=== PATIENT | male | born 1940 | race Caucasian/White ===

== ENCOUNTER 2017-05-18 02:55 | Inpatient (IN) | payer MEDICARE ==
[2017-05-18] MEDS ORDERED: HYDROmorphone 0.5 MG/0.5 ML Syringe IVPUSH ONE ×2 (03:25→04:24)
[2017-05-18] MEDS ORDERED: Sodium Chloride 0.9% 1,000 ML IV SCH (03:30)
[2017-05-18] MEDS ORDERED: NS + KCl 20mEq/L 1,000 ML IV SCH (03:30)
[2017-05-18] MEDS ORDERED: Metoclopramide 10 MG/2 ML SDV IVPUSH ONE (03:32)
--- NOTE | 2017-05-18 03:38 | EDM.PDOC ---
ED HPI GENERAL MEDICAL PROBLEM - General Chief Complaint: Abdominal Pain Stated Complaint: ABD PAIN Time Seen by Provider: 05/18/17 03:20 Source of Information: Reports: Patient, Old Records, RN History Limitations: Reports: No Limitations - History of Present Illness INITIAL COMMENTS - FREE TEXT/NARRATIVE: 76 yo male presents with about 90 minutes of pain in his abdomen sufficient to keep him from falling back to sleep. Has had nausea without vomiting. No fever. Pain all across the mid abdomen. No change in bowels. Has a pHx of bowel obstruction and this feels like that. Ate chili for supper about 1800h. Onset: Gradual Onset Date: 05/18/17 Onset Time: 01:30 Duration: Minutes:, Getting Worse, Intermittent Location: Reports: Abdomen Quality: Reports: Ache Severity: Moderate Improves with: Reports: None Worsens with: Reports: None Context: Reports: Other (PHx of bowel obstruction) Associated Symptoms: Reports: Nausea/Vomiting (no vomiting). Denies: Cough, Fever/Chills Treatments BLACK OFF WORKER: Reports: Other (see below) (none) abd Pain Score (Numeric/FACES): 7 - Related Data Allergies Allergy/AdvReac Type Severity Reaction Status Date / Time erythromycin base Allergy Unknown Blisters Verified 06/06/15 04:17 [Erythromycin Base] Home Meds: Home Meds Aspirin [[place] Aspirin] 81 mg PO DAILY 02/17/14 [History] Past Medical History - Past Health History Medical/Surgical History: Denies Medical/Surgical History HEENT History: Reports: Hard of Hearing, Impaired Vision Gastrointestinal History: Reports: Bowel Obstruction, Colon Polyp Hematologic History: Reports: Blood Transfusion(s) Oncologic (Cancer) History: Reports: Colon - Infectious Disease History Infectious Disease History: Reports: Chicken Pox, Mumps, Shingles - Past Surgical History GI Surgical History: Reports: Colon, Colonoscopy, Lysis of Adhesions, Small Bowel, Other (See Below) Other GI Surgeries/Procedures: ruptured ulcer in small intestine Social & Family History - Tobacco Use Smoking Status *Q: Never Smoker Years of Tobacco use: 5 Packs/Tins Daily: 0.5 Used Tobacco, but Quit: Yes Month Tobacco Last Used: June Second Hand Smoke Exposure: No - Caffeine Use Caffeine Use: Reports: Coffee - Alcohol Use Days Per Week of Alcohol Use: 7 Number of Drinks Per Day: 2 Total Drinks Per Week: 14 - Recreational Drug Use Recreational Drug Use: No ED ROS GENERAL - Review of Systems Review Of Systems: See Below Constitutional: Reports: No Symptoms HEENT: Reports: No Symptoms Respiratory: Reports: No Symptoms Cardiovascular: Reports: No Symptoms Endocrine: Reports: No Symptoms GI/Abdominal: Reports: Abdominal Pain, Distension (slight), Nausea. Denies: Black Stool, Bloody Stool, Constipation, Diarrhea, Flatus, Hematemesis, Hematochezia, Melena, Vomiting : Reports: No Symptoms Musculoskeletal: Reports: No Symptoms Skin: Reports: No Symptoms Neurological: Reports: No Symptoms Psychiatric: Reports: No Symptoms Hematologic/Lymphatic: Reports: No Symptoms ED EXAM, GI/ABD - Physical Exam Exam: See Below Exam Limited By: No Limitations General Appearance: Alert, WD/WN, No Apparent Distress Eyes: Bilateral: Normal Appearance Ears: Normal External Exam, Normal Canal, Hearing Loss (mild) Nose: Normal Inspection, Normal Mucosa, No Blood Throat/Mouth: Normal Inspection, Normal Lips, Normal Oropharynx, Normal Voice, No Airway Compromise Head: Atraumatic, Normocephalic Neck: Normal Inspection, Supple, Non-Tender Respiratory/Chest: No Respiratory Distress, Lungs Clear, Normal Breath Sounds, No Accessory Muscle Use Cardiovascular: Regular Rate, Rhythm, No Edema GI/Abdominal Exam: Normal Bowel Sounds, Soft, Non-Tender, No Distention Back Exam: Normal Inspection. No: CVA Tenderness (R), CVA Tenderness (L) Extremities: Normal Inspection, Normal Range of Motion, Non-Tender, No Pedal Edema Neurological: Alert, Oriented, CN II-XII Intact, Normal Cognition, No Motor/ Sensory Deficits Psychiatric: Normal Affect, Normal Mood Skin Exam: Warm, Dry, Intact, Normal Color, No Rash Lymphatic: No Adenopathy Course - Vital Signs Text/Narrative:: Dr. Quan called @ [facility], will see in ER. Last Recorded V/S: Last Vital Signs Temp 36.2 C 05/18/17 04:33 Pulse 90 05/18/17 04:33 Resp 16 05/18/17 04:33 BP 152/85 H 05/18/17 04:33 Pulse Ox 93 L 05/18/17 04:33 - Orders/Labs/Meds Orders: Active Orders 24 hr Category Date Time Status Abdomen Pelvis w Cont [CT] Stat Exams 05/18/17 03:31 Taken Sodium Chloride 0.9% [Normal Saline] 1,000 ml Med 05/18/17 03:30 Active IV ASDIRECTED Medication Orders Sodium Chloride (Normal Saline) 1,000 mls @ 250 mls/hr IV ASDIRECTED NATHALIE Last Admin: 05/18/17 03:35 Dose: 250 mls/hr Labs: Laboratory Tests 05/18/17 05/18/17 Range/Units 03:36 03:36 WBC 9.2 (4.5-11.0) K/uL RBC 5.16 (4.30-5.90) M/uL Hgb 16.3 H D (12.0-15.0) g/dL Hct 48.1 (40.0-54.0) % MCV 93 (80-98) fL MCH 32 H (27-31) pg MCHC 34 (32-36) % Plt Count 291 (150-400) K/uL Sodium 141 (140-148) mmol/L Potassium 4.1 (3.6-5.2) mmol/L Chloride 102 (100-108) mmol/L Carbon Dioxide 27 (21-32) mmol/L Anion Gap 11.9 (5.0-14.0) mmol/L BUN 17 (7-18) mg/dL Creatinine 1.2 (0.8-1.3) mg/dL Est Cr Clr Drug Dosing 55.78 mL/min Estimated GFR (MDRD) 59 L (>60) Glucose 112 H (74-106) mg/dL Calcium 9.3 (8.5-10.1) mg/dL Meds: Medications Generic Name Dose Route Start Last Admin Trade Name Freq PRN Reason Stop Dose Admin Sodium Chloride 1,000 mls @ 250 mls/hr 05/18/17 03:30 05/18/17 03:35 Normal Saline IV 250 mls/hr ASDIRECTED NATHALIE Administration Discontinued Medications Generic Name Dose Route Start Last Admin Trade Name Freq PRN Reason Stop Dose Admin Hydromorphone HCl 0.5 mg 05/18/17 03:25 05/18/17 03:33 Dilaudid IVPUSH 05/18/17 03:26 0.5 mg ONETIME ONE Administration Hydromorphone HCl 0.5 mg 05/18/17 04:24 05/18/17 04:28 Dilaudid IVPUSH 05/18/17 04:25 0.5 mg ONETIME ONE Administration Potassium Chloride/Sodium Chloride 1,000 mls @ 250 mls/hr 05/18/17 03:30 Normal Saline With 20 Meq Kcl IV ASDIRECTED NATHALIE Sodium Chloride 81 mls @ 4 mls/sec 05/18/17 04:03 05/18/17 04:11 Normal Saline IV 05/18/17 04:04 4 mls/sec ASDIRECTED STA Administration Iopamidol 136 ml 05/18/17 04:03 05/18/17 04:11 Isovue-300 (61%) IV 05/18/17 04:04 150 ml . DIRECTED STA Administration Metoclopramide HCl 10 mg 05/18/17 03:32 05/18/17 03:36 Reglan IVPUSH 05/18/17 03:33 10 mg ONETIME ONE Administration - Radiology Interpretation Free Text/Narrative:: CT of abdomen and pelvis-small bowel obstruction CT Results Date: 05/18/17 CT Results Time: 04:45 Departure - Departure Time of Disposition: 05:05 Disposition: Admitted As Inpatient 66 Condition: Fair Clinical Impression: Small bowel obstruction - Discharge Information Referrals: Frederic Calderon NP [Primary Care Provider] - Forms: ED Department Discharge - My Orders Last 24 Hours: My Active Orders 05/18/17 03:30 Sodium Chloride 0.9% [Normal Saline] 1,000 ml IV ASDIRECTED 05/18/17 03:31 Abdomen Pelvis w Cont [CT] Stat - Assessment/Plan Last 24 Hours: My Active Orders 05/18/17 03:30 Sodium Chloride 0.9% [Normal Saline] 1,000 ml IV ASDIRECTED 05/18/17 03:31 Abdomen Pelvis w Cont [CT] Stat
[2017-05-18] MEDS ORDERED: Iopamidol 612 MG/ML 150 ML Bottle IV STA (04:03)
[2017-05-18] MEDS ORDERED: Lidocaine 2% Viscous Solution 15 ML Cup PO STA (04:58)
[2017-05-18] MEDS ORDERED: Ondansetron 4 MG/2 ML SDV IV PRN (05:39)
--- NOTE | 2017-05-18 05:57 | PCM.HP ---
H&P History of Present Illness - General Date of Service: 05/18/17 Admit Problem/Dx: Admission Diagnosis/Problem Admission Diagnosis/Problem Small bowel obstruction Source of Information: Patient, Provider History Limitations: Reports: No Limitations - History of Present Illness Initial Comments - Free Text/Narative: This 76 year old white male noted onset of crampy abdominal pain about 11:00 last night. These spasms of pain lasted seconds only, and then he felt fine for several minutes. He went to bed and woke up about 1:30 this morning with severe pain which caused him to come to the ER. It was still episodic. He noted some nausea with pain, but denied vomiting. He last passed gas several hours ago. Here he was found on CT of abdomen and pelvis to have a "likely high grade small bowel obstruction due to adhesions." An NG tube was placed and he now feels fine. He is admitted for bowel rest with an NG and IV fluid support. 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 Onset of Symptoms: Reports: Gradual Symptom Onset Date: 05/17/17 Symptom Onset Time: 23:00 Duration of Symptoms: Reports: Minutes: Location: Reports: Abdomen Quality: Reports: Other (Cramping) Severity: Severe Improves with: Reports: None Worsens with: Reports: None Associated Symptoms: Reports: Nausea/Vomiting (No vomiting, a little nausea with his crampy pain. ) abd Pain Score (Numeric/FACES): 2 - Related Data Allergies/Adverse Reactions: Allergies Allergy/AdvReac Type Severity Reaction Status Date / Time erythromycin base Allergy Unknown Blisters Verified 06/06/15 04:17 [Erythromycin Base] Home Medications: Home Meds Aspirin [[place] Aspirin] 81 mg PO DAILY 02/17/14 [History] Past Medical History - Past Health History Medical/Surgical History: Denies Medical/Surgical History HEENT History: Reports: Hard of Hearing, Impaired Vision Gastrointestinal History: Reports: Bowel Obstruction, Colon Polyp Hematologic History: Reports: Blood Transfusion(s) Oncologic (Cancer) History: Reports: Colon - Infectious Disease History Infectious Disease History: Reports: Chicken Pox, Mumps, Shingles - Past Surgical History GI Surgical History: Reports: Colon, Colonoscopy, Lysis of Adhesions, Small Bowel, Other (See Below) Other GI Surgeries/Procedures: ruptured ulcer in small intestine Social & Family History - Tobacco Use Smoking Status *Q: Never Smoker Years of Tobacco use: 5 Packs/Tins Daily: 0.5 Used Tobacco, but Quit: Yes Month Tobacco Last Used: June Second Hand Smoke Exposure: No - Caffeine Use Caffeine Use: Reports: Coffee - Alcohol Use Days Per Week of Alcohol Use: 7 Number of Drinks Per Day: 2 Total Drinks Per Week: 14 - Recreational Drug Use Recreational Drug Use: No H&P Review of Systems - Review of Systems: Review Of Systems: See Below General: Reports: Other (Abdominal pain with nausea. ) HEENT: Reports: No Symptoms Pulmonary: Reports: No Symptoms Cardiovascular: Reports: No Symptoms, Orthopnea Gastrointestinal: Reports: Abdominal Pain, Nausea Genitourinary: Reports: No Symptoms Musculoskeletal: Reports: No Symptoms Skin: Reports: No Symptoms Psychiatric: Reports: No Symptoms Neurological: Reports: No Symptoms Hematologic/Lymphatic: Reports: No Symptoms Immunologic: Reports: No Symptoms Exam - Exam Exam: See Below - Vital Signs Vital Signs: Last Vital Signs Temp 97.2 F 05/18/17 04:33 Pulse 92 05/18/17 05:25 Resp 16 05/18/17 05:25 BP 153/97 H 05/18/17 05:25 Pulse Ox 95 05/18/17 05:25 Weight: 201 lb 0.985 oz - Exam General: Alert, Oriented, Cooperative, Other (No distress. ) Lungs: Clear to Auscultation, Normal Respiratory Effort Cardiovascular: Regular Rate, Regular Rhythm GI/Abdominal Exam: Normal Bowel Sounds (Quite active. No borborygmi.), Soft, Non-Tender, No Organomegaly, No Distention, No Mass, Other (Well healed surgical scars. ) (Male) Exam: No Hernia Back Exam: Normal Inspection, Full Range of Motion Extremities: Normal Inspection Skin: Warm, Dry, Intact Neuro Extensive - Mental Status: Alert, Oriented x3, Normal Mood/Affect, Normal Cognition, Memory Intact Psychiatric: Alert, Normal Affect, Normal Mood - Patient Data Lab Results Last 24 hrs: Laboratory Results - last 24 hr 05/18/17 05/18/17 Range/Units 03:36 03:36 WBC 9.2 (4.5-11.0) K/uL RBC 5.16 (4.30-5.90) M/uL Hgb 16.3 H D (12.0-15.0) g/dL Hct 48.1 (40.0-54.0) % MCV 93 (80-98) fL MCH 32 H (27-31) pg MCHC 34 (32-36) % Plt Count 291 (150-400) K/uL Sodium 141 (140-148) mmol/L Potassium 4.1 (3.6-5.2) mmol/L Chloride 102 (100-108) mmol/L Carbon Dioxide 27 (21-32) mmol/L Anion Gap 11.9 (5.0-14.0) mmol/L BUN 17 (7-18) mg/dL Creatinine 1.2 (0.8-1.3) mg/dL Est Cr Clr Drug Dosing 55.78 mL/min Estimated GFR (MDRD) 59 L (>60) Glucose 112 H (74-106) mg/dL Calcium 9.3 (8.5-10.1) mg/dL Result Diagrams: 05/18/17 03:36 05/18/17 03:36 *Q Meaningful Use (ADM) - VTE *Q VTE Criteria *Q: - Stroke *Q Stroke Criteria *Q: - AMI *Q AMI Criteria *Q: - Problem List (1) Small bowel obstruction SNOMED Code(s): 974660596 ICD Code: K56.69 - OTHER INTESTINAL OBSTRUCTION * DO NOT USE * Status: Acute Current Visit: Yes Problem List Initiated/Reviewed/Updated: Yes Orders Last 24hrs: Active Orders 24 hr Category Date Time Status Patient Status [ADT] Routine ADT 05/18/17 05:39 Ordered Ambulate [RC] QID Care 05/18/17 05:39 Ordered Ambulate [RC] QID Care 05/18/17 05:39 Ordered Gastrointestinal Tube Mgmt [RC] ASDIRECTED Care 05/18/17 05:16 Active Height and Weight [RC] DAILY Care 05/18/17 05:39 Ordered Intake and Output [RC] QSHIFT Care 05/18/17 05:41 Ordered Notify Provider Vital Signs [RC] ASDIRECTED Care 05/18/17 05:42 Ordered Oxygen Therapy [RC] PRN Care 05/18/17 05:39 Ordered Up With Assistance [RC] ASDIRECTED Care 05/18/17 05:39 Ordered Up ad Fifi [RC] ASDIRECTED Care 05/18/17 05:39 Ordered Up to Chair [RC] ASDIRECTED Care 05/18/17 05:39 Ordered VTE/DVT Education [RC] Per Unit Routine Care 05/18/17 05:39 Ordered Vital Signs [RC] Q4H Care 05/18/17 05:39 Ordered Nothing per Oral Now Diet [DIET] Diet 05/18/17 Breakfast Ordered Abdomen 2V AP Flat Upright [CR] Stat Exams 05/19/17 06:00 Ordered Abdomen Pelvis w Cont [CT] Stat Exams 05/18/17 03:31 Taken BASIC METABOLIC PANEL,BMP [CHEM] DAILY Lab 05/19/17 05:11 Ordered BASIC METABOLIC PANEL,BMP [CHEM] DAILY Lab 05/20/17 05:11 Ordered BASIC METABOLIC PANEL,BMP [CHEM] DAILY Lab 05/21/17 05:11 Ordered BASIC METABOLIC PANEL,BMP [CHEM] DAILY Lab 05/22/17 05:11 Ordered CBC W/O DIFF,HEMOGRAM [HEME] DAILY Lab 05/19/17 05:11 Ordered CBC W/O DIFF,HEMOGRAM [HEME] DAILY Lab 05/20/17 05:11 Ordered CBC W/O DIFF,HEMOGRAM [HEME] DAILY Lab 05/21/17 05:11 Ordered CBC W/O DIFF,HEMOGRAM [HEME] DAILY Lab 05/22/17 05:11 Ordered Ondansetron [Zofran] Med 05/18/17 05:39 Ordered 4 mg IV Q6H PRN Sodium Chloride 0.9% [Normal Saline] 1,000 ml Med 05/18/17 03:30 Active IV ASDIRECTED NG [Nasogastric Orogastric Tube Insertion] [OM.PC] Oth 05/18/17 05:16 Ordered Routine Sequential Compression Device [OM.PC] Per Unit Routine Oth 05/18/17 05:42 Ordered Resuscitation Status Routine Resus Stat 05/18/17 05:39 Ordered Medication Orders Sodium Chloride (Normal Saline) 1,000 mls @ 250 mls/hr IV ASDIRECTED [facility] Last Admin: 05/18/17 03:35 Dose: 250 mls/hr Ondansetron HCl (Zofran) 4 mg IV Q6H PRN PRN Reason: Nausea/Vomiting Assessment/Plan Comment:: Small bowel obstruction likely secondary to adhesions with no evidence of bowel compromise. He will be admitted for bowel rest/NG tube and IV fluid support.
[2017-05-18] MEDS: D5 1/2 NS w/ 20 mEq/L KCl 1,000 ML IV SCH ×3 (06:44→19:43)
[2017-05-19] MEDS: D5 1/2 NS w/ 20 mEq/L KCl 1,000 ML IV SCH (03:06)
[2017-05-19 08:36] VITALS: BP 131/84
[2017-05-19] MEDS ORDERED: FLU Vacc TS 2017-18 (65yr UP)/PF 180 MCG/0.5 ML Syringe IM ONE ×2 (10:00→14:00)
--- NOTE | 2017-05-19 10:27 | CR ---
Moderate fecal residual. Mildly dilated small bowel loop right lower quadrant which may indicate obst ruction.
--- NOTE | 2017-05-19 13:36 | PCM.DCSUM1 ---
Discharge Summary - Hospital Course Free Text/Narrative:: This 76 year old white male presented early yesterday morning to the ER with several hours of intermittent crampy abdominal pain. CT scan was consistent with a small bowel obstruction. 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 An NG tube was placed with decompression occurring. Within a few hours he started passing gas and had a BM. His NG tube was removed. He was watched over night with no problems and fed today. He continues with more BMs. He is eating a regular diet and wants to go home. He is discharged at this time in good condition. Brief History: See above narrative. - Discharge Data Discharge Date: 05/19/17 Discharge Disposition: Home, Self-Care 01 Condition: Stable - Discharge Diagnosis/Problem(s) (1) Small bowel obstruction SNOMED Code(s): 597528984 ICD Code: K56.69 - OTHER INTESTINAL OBSTRUCTION * DO NOT USE * Status: Acute Current Visit: Yes - Patient Summary/Data Operative Procedure(s) Performed: None. Had CT of abdomen and pelvis. - Patient Instructions Diet: Usual Diet as Tolerated Activity: As Tolerated Driving: May Drive Today Showering/Bathing: May Shower Notify Provider of: Fever, Increased Pain, Swelling and Redness, Drainage, Nausea and/or Vomiting - Discharge Plan Home Medications: Home Meds Aspirin [[place] Aspirin] 81 mg PO DAILY 02/17/14 [History] Forms: ED Department Discharge Referrals: Frederic Calderon TALENT ASSOCIATE [Primary Care Provider] - - Discharge Summary/Plan Comment DC Time >30 min.: Yes Discharge Summary/Plan Comment: See above narrative. - Patient Data Vitals - Most Recent: Last Vital Signs Temp 97.4 F 05/19/17 07:00 Pulse 76 05/19/17 07:00 Resp 16 05/19/17 07:00 BP 131/84 05/19/17 07:00 Pulse Ox 96 05/19/17 07:00 Weight - Most Recent: 201 lb 5.218 oz I&O - Last 24 hours: Intake & Output 05/18/17 05/19/17 05/19/17 22:59 06:59 14:59 Intake Total 1781 1500 400 Output Total 150 1200 400 Balance 1631 300 0 Lab Results - Last 24 hrs: Laboratory Results - last 24 hr 05/19/17 05/19/17 Range/Units 05:50 05:50 WBC 4.1 L (4.5-11.0) K/uL RBC 4.29 L (4.30-5.90) M/uL Hgb 13.3 D (12.0-15.0) g/dL Hct 40.8 (40.0-54.0) % MCV 95 (80-98) fL MCH 31 (27-31) pg MCHC 33 (32-36) % Plt Count 230 (150-400) K/uL Sodium 138 L (140-148) mmol/L Potassium 4.3 (3.6-5.2) mmol/L Chloride 105 (100-108) mmol/L Carbon Dioxide 26 (21-32) mmol/L Anion Gap 11.3 (5.0-14.0) mmol/L BUN 9 (7-18) mg/dL Creatinine 0.9 (0.8-1.3) mg/dL Est Cr Clr Drug Dosing 74.07 mL/min Estimated GFR (MDRD) > 60 (>60) Glucose 116 H (74-106) mg/dL Calcium 8.6 (8.5-10.1) mg/dL Med Orders - Current: Current Medications Sodium Chloride (Normal Saline) 1,000 mls @ 250 mls/hr IV ASDIRECTED [facility] Last Admin: 05/18/17 03:35 Dose: 250 mls/hr Potassium Chloride/Dextrose/Sod Cl (D5 1/2 Ns W/ 20 Meq/L Kcl) 1,000 mls @ 0 mls/hr IV ASDIRECTED [facility] PRN Reason: KVO Last Admin: 05/19/17 03:06 Dose: 150 mls/hr Ondansetron HCl (Zofran) 4 mg IV Q6H PRN PRN Reason: Nausea/Vomiting Discontinued Medications Hydromorphone HCl (Dilaudid) 0.5 mg IVPUSH ONETIME ONE Stop: 05/18/17 03:26 Last Admin: 05/18/17 03:33 Dose: 0.5 mg Hydromorphone HCl (Dilaudid) 0.5 mg IVPUSH ONETIME ONE Stop: 05/18/17 04:25 Last Admin: 05/18/17 04:28 Dose: 0.5 mg Potassium Chloride/Sodium Chloride (Normal Saline With 20 Meq Kcl) 1,000 mls @ 250 mls/hr IV ASDIRECTED NATHALIE Sodium Chloride (Normal Saline) 81 mls @ 4 mls/sec IV ASDIRECTED STA Stop: 05/18/17 04:04 Last Admin: 05/18/17 04:11 Dose: 4 mls/sec Influenza Virus Vaccine (Fluzone High-Dose ) 180 mcg IM ONETIME ONE Stop: 05/19/17 10:01 Iopamidol (Isovue-300 (61%)) 136 ml IV . DIRECTED STA Stop: 05/18/17 04:04 Last Admin: 05/18/17 04:11 Dose: 150 ml Lidocaine HCl (Xylocaine 2% Viscous) 15 ml PO ASDIRECTED STA Stop: 05/18/17 04:59 Last Admin: 05/18/17 05:14 Dose: 7 ml Metoclopramide HCl (Reglan) 10 mg IVPUSH ONETIME ONE Stop: 05/18/17 03:33 Last Admin: 05/18/17 03:36 Dose: 10 mg - Exam General: Reports: Alert, Oriented, Cooperative, No Acute Distress Lungs: Reports: Clear to Auscultation, Normal Respiratory Effort Cardiovascular: Reports: Regular Rate, Regular Rhythm GI/Abdominal Exam: Normal Bowel Sounds, Soft, Non-Tender (Male) Exam: No Hernia Back Exam: Reports: Normal Inspection, Full Range of Motion Extremities: Normal Inspection Skin: Reports: Warm, Dry, Intact Neurological: Reports: No New Focal Deficit Psy/Mental Status: Reports: Alert, Normal Affect, Normal Mood *Q Meaningful Use (DIS) - VTE *Q VTE Criteria *Q: - Stroke *Q Stroke Criteria *Q: - AMI *Q AMI Criteria *Q:
== END 2017-05-19 13:45 | disposition home or self-care (01) | DRG 390 ==
LOC: JP.ED 02:55 → JP.MS 05:39
PROVIDERS: ADMIT Surgery; ATTEND Surgery
DX: K56.50 Intestinal adhesions [bands], unspecified as to partial versus complete obstruction (principal); Z85.038 Personal history of other malignant neoplasm of large intestine; Z87.11 Personal history of peptic ulcer disease; Z90.49 Acquired absence of other specified parts of digestive tract; R10.9 Unspecified abdominal pain; R11.0 Nausea; Z87.891 Personal history of nicotine dependence; Z23 Encounter for immunization; H54.7 Unspecified visual loss; H91.90 Unspecified hearing loss, unspecified ear; Z79.82 Long term (current) use of aspirin; Z88.1 Allergy status to other antibiotic agents
CPT/HCPCS: 36415; 74177; 80048; 85027; A9270; J1170 ×2; J2765; J7030; J7040; 74020; 74020-26; 90662; 96361; 96374; 96375; 96376; 99284; 99285-25; G0008; J3480

== ENCOUNTER 2017-08-17 01:39 | Inpatient (IN) | payer MEDICARE ==
--- NOTE | 2017-08-17 02:12 | EDM.PDOC ---
ED HPI GENERAL MEDICAL PROBLEM - General Chief Complaint: Abdominal Pain Stated Complaint: ABDOMINAL PAIN Time Seen by Provider: 08/17/17 03:04 Source of Information: Reports: Patient, RN Notes Reviewed History Limitations: Reports: No Limitations - History of Present Illness INITIAL COMMENTS - FREE TEXT/NARRATIVE: 77-year-old gentleman presents to the emergency department today with complaint of abdominal pain, he states it started about 6 hours prior comes in waves he is not passing gas he is nauseated does have a history of colon cancer status post resection as well as a history of small bowel obstruction denies any fevers Lower Middle Abdomen Pain Score (Numeric/FACES): 8 - Related Data Allergies Allergy/AdvReac Type Severity Reaction Status Date / Time erythromycin base Allergy Unknown Blisters Verified 08/17/17 01:53 [Erythromycin Base] Home Meds: Home Meds Aspirin [[place] Aspirin] 81 mg PO DAILY 02/17/14 [History] Triamcinolone Acetonide [Triamcinolone Acetonide 0.5% Oint] 15 gm TOP ASDIRECTED 08/17/17 [History] Past Medical History HEENT History: Reports: Hard of Hearing, Impaired Vision Gastrointestinal History: Reports: Bowel Obstruction, Colon Polyp Hematologic History: Reports: Blood Transfusion(s) Oncologic (Cancer) History: Reports: Colon - Infectious Disease History Infectious Disease History: Reports: Chicken Pox - Past Surgical History GI Surgical History: Reports: Colon, Colonoscopy, Lysis of Adhesions, Small Bowel, Other (See Below) Other GI Surgeries/Procedures: ruptured ulcer in small intestine Social & Family History - Family History Family Medical History: Noncontributory - Tobacco Use Smoking Status *Q: Never Smoker Years of Tobacco use: 5 Packs/Tins Daily: 0.5 Used Tobacco, but Quit: Yes Month Tobacco Last Used: 40 yrs ago Second Hand Smoke Exposure: No - Caffeine Use Caffeine Use: Reports: Coffee Caffeine Use Comment: 2-3 cups/day - Alcohol Use Days Per Week of Alcohol Use: 5 Number of Drinks Per Day: 2 Total Drinks Per Week: 10 - Recreational Drug Use Recreational Drug Use: No ED ROS GENERAL - Review of Systems Review Of Systems: See Below Constitutional: Denies: Fever, Chills HEENT: Reports: No Symptoms Respiratory: Reports: No Symptoms Cardiovascular: Reports: No Symptoms GI/Abdominal: Reports: Abdominal Pain, Nausea. Denies: Constipation, Diarrhea, Flatus, Vomiting : Reports: No Symptoms Musculoskeletal: Reports: No Symptoms Skin: Reports: No Symptoms Neurological: Reports: No Symptoms ED EXAM, GI/ABD - Physical Exam Exam: See Below Exam Limited By: No Limitations General Appearance: Alert, Mild Distress Head: Atraumatic, Normocephalic Neck: Normal Inspection, Supple, Non-Tender, Full Range of Motion Respiratory/Chest: No Respiratory Distress, Lungs Clear, Normal Breath Sounds, No Accessory Muscle Use Cardiovascular: Regular Rate, Rhythm, No Murmur GI/Abdominal Exam: Normal Bowel Sounds, Soft, Distended, Tender (Generalized). No: Guarding, Rigid, Rebound Course - Vital Signs Last Recorded V/S: Last Vital Signs Temp 97.4 F 08/17/17 01:50 Pulse 86 08/17/17 03:31 Resp 15 08/17/17 03:31 BP 169/104 H 08/17/17 03:31 Pulse Ox 95 08/17/17 03:31 - Orders/Labs/Meds Orders: Active Orders 24 hr Category Date Time Status Peripheral IV Care [RC] . DIRECTED Care 08/17/17 03:08 Active Abdomen Pelvis w Cont [CT] Urgent Exams 08/17/17 03:08 Taken Iopamidol [Isovue-300 (61%)] Med 08/17/17 03:54 Active 141 ml IV . DIRECTED PRN Lactated Ringers [Ringers, Lactated] 1,000 ml Med 08/17/17 03:15 Active IV ASDIRECTED Sodium Chloride 0.9% [Normal Saline] 86 ml Med 08/17/17 04:00 Active IV ASDIRECTED Sodium Chloride 0.9% [Saline Flush] Med 08/17/17 03:08 Active 10 ml FLUSH ASDIRECTED PRN Peripheral IV Insertion Adult [OM.PC] Urgent Oth 08/17/17 03:08 Ordered Medication Orders Lactated Ringer's (Ringers, Lactated) 1,000 mls @ 500 mls/hr IV ASDIRECTED NATHALIE Last Admin: 08/17/17 03:22 Dose: 500 mls/hr Sodium Chloride (Normal Saline) 86 mls @ 3.5 mls/sec IV ASDIRECTED NATHALIE Last Admin: 08/17/17 04:10 Dose: 3.5 mls/sec Iopamidol (Isovue-300 (61%)) 141 ml IV . DIRECTED PRN PRN Reason: RADIOLOGY EXAM Stop: 08/18/17 03:55 Last Admin: 08/17/17 04:10 Dose: 141 ml Sodium Chloride (Saline Flush) 10 ml FLUSH ASDIRECTED PRN PRN Reason: Keep Vein Open Last Admin: 08/17/17 05:13 Dose: 10 ml Admin: 08/17/17 04:08 Dose: 10 ml Admin: 08/17/17 03:20 Dose: 10 ml Labs: Laboratory Tests 08/17/17 08/17/17 08/17/17 Range/Units 03:10 03:10 03:10 WBC 7.4 (4.5-11.0) K/uL RBC 5.13 (4.30-5.90) M/uL Hgb 16.1 H D (12.0-15.0) g/dL Hct 47.9 (40.0-54.0) % MCV 93 (80-98) fL MCH 31 (27-31) pg MCHC 34 (32-36) % Plt Count 272 (150-400) K/uL Neut % (Auto) 73 H (36-66) % Lymph % (Auto) 13 L (24-44) % [place] % (Auto) 10 H (2-6) % Eos % (Auto) 4 (2-4) % Baso % (Auto) 0 (0-1) % Sodium 140 (140-148) mmol/L Potassium 4.5 (3.6-5.2) mmol/L Chloride 102 (100-108) mmol/L Carbon Dioxide 30 (21-32) mmol/L Anion Gap 8.5 (5.0-14.0) mmol/L BUN 15 D (7-18) mg/dL Creatinine 1.1 (0.8-1.3) mg/dL Est Cr Clr Drug Dosing 58.07 mL/min Estimated GFR (MDRD) > 60 (>60) Glucose 118 H (74-106) mg/dL Lactic Acid 0.8 (0.4-2.0) mmol/L Calcium 9.1 (8.5-10.1) mg/dL Total Bilirubin 0.5 (0.2-1.0) mg/dL AST 23 (15-37) U/L ALT 31 (12-78) U/L Alkaline Phosphatase 62 D (46-116) U/L Troponin I < 0.017 (0.000-0.056) ng/mL Total Protein 7.9 (6.4-8.2) g/dL Albumin 4.3 (3.4-5.0) g/dL Globulin 3.6 H (2.3-3.5) g/dL Albumin/Globulin Ratio 1.2 (1.2-2.2) Lipase 145 (73-393) U/L Urine Color Urine Appearance Urine pH (4.5-8.0) Ur Specific [place] (1.008-1.030) Urine Protein (NEGATIVE) mg/dL Urine Glucose (UA) (NEGATIVE) mg/dL Urine Ketones (NEGATIVE) mg/dL Urine Occult Blood (NEGATIVE) Urine Nitrite (NEGAITVE) Urine Bilirubin (NEGATIVE) Urine Urobilinogen (NORMAL) mg/dL Ur Leukocyte Esterase (NEGATIVE) Urine RBC (0-5) Urine WBC (0-5) Ur Epithelial Cells Amorphous Sediment Urine Bacteria Urine Mucus 08/17/17 Range/Units 03:54 WBC (4.5-11.0) K/uL RBC (4.30-5.90) M/uL Hgb (12.0-15.0) g/dL Hct (40.0-54.0) % MCV (80-98) fL MCH (27-31) pg MCHC (32-36) % Plt Count (150-400) K/uL Neut % (Auto) (36-66) % Lymph % (Auto) (24-44) % [place] % (Auto) (2-6) % Eos % (Auto) (2-4) % Baso % (Auto) (0-1) % Sodium (140-148) mmol/L Potassium (3.6-5.2) mmol/L Chloride (100-108) mmol/L Carbon Dioxide (21-32) mmol/L Anion Gap (5.0-14.0) mmol/L BUN (7-18) mg/dL Creatinine (0.8-1.3) mg/dL Est Cr Clr Drug Dosing mL/min Estimated GFR (MDRD) (>60) Glucose (74-106) mg/dL Lactic Acid (0.4-2.0) mmol/L Calcium (8.5-10.1) mg/dL Total Bilirubin (0.2-1.0) mg/dL AST (15-37) U/L ALT (12-78) U/L Alkaline Phosphatase (46-116) U/L Troponin I (0.000-0.056) ng/mL Total Protein (6.4-8.2) g/dL Albumin (3.4-5.0) g/dL Globulin (2.3-3.5) g/dL Albumin/Globulin Ratio (1.2-2.2) Lipase (73-393) U/L Urine Color Yellow Urine Appearance Clear Urine pH 6.0 (4.5-8.0) Ur Specific [place] 1.015 (1.008-1.030) Urine Protein Negative (NEGATIVE) mg/dL Urine Glucose (UA) Normal (NEGATIVE) mg/dL Urine Ketones Negative (NEGATIVE) mg/dL Urine Occult Blood Negative (NEGATIVE) Urine Nitrite Negative (NEGAITVE) Urine Bilirubin Negative (NEGATIVE) Urine Urobilinogen Normal (NORMAL) mg/dL Ur Leukocyte Esterase Small (NEGATIVE) Urine RBC 0-5 (0-5) Urine WBC 0-5 (0-5) Ur Epithelial Cells Rare Amorphous Sediment Few Urine Bacteria Few Urine Mucus Not seen Meds: Medications Generic Name Dose Route Start Last Admin Trade Name Freq PRN Reason Stop Dose Admin Lactated Ringer's 1,000 mls @ 500 mls/hr 08/17/17 03:15 08/17/17 03:22 Ringers, Lactated IV 500 mls/hr ASDIRECTED NATHALIE Administration Sodium Chloride 86 mls @ 3.5 mls/sec 08/17/17 04:00 08/17/17 04:10 Normal Saline IV 3.5 mls/sec ASDIRECTED NATHALIE Administration Iopamidol 141 ml 08/17/17 03:54 08/17/17 04:10 Isovue-300 (61%) IV 08/18/17 03:55 141 ml . DIRECTED PRN Administration RADIOLOGY EXAM Sodium Chloride 10 ml 08/17/17 03:08 08/17/17 05:13 Saline Flush FLUSH 10 ml ASDIRECTED PRN Administration Keep Vein Open Discontinued Medications Generic Name Dose Route Start Last Admin Trade Name Freq PRN Reason Stop Dose Admin Fentanyl 50 mcg 08/17/17 03:09 08/17/17 03:26 Sublimaze IVPUSH 08/17/17 03:10 50 mcg ONETIME ONE Administration Fentanyl 50 mcg 08/17/17 04:59 08/17/17 05:09 Sublimaze IVPUSH 08/17/17 05:00 50 mcg ONETIME ONE Administration Ondansetron HCl 4 mg 08/17/17 03:09 08/17/17 03:23 Zofran IVPUSH 08/17/17 03:10 4 mg ONETIME ONE Administration Sodium Chloride 10 ml 08/17/17 03:54 Saline Flush FLUSH 08/17/17 03:55 ONETIME ONE Departure - Departure Time of Disposition: 05:15 Disposition: Admitted As Inpatient 66 Condition: Good Clinical Impression: Small bowel obstruction - Discharge Information Referrals: Frederic Calderon MICROBIOLOGY LAB ASSISTANT [Primary Care Provider] - Forms: ED Department Discharge - My Orders Last 24 Hours: My Active Orders 08/17/17 03:08 Peripheral IV Care [RC] . DIRECTED Abdomen Pelvis w Cont [CT] Urgent Sodium Chloride 0.9% [Saline Flush] 10 ml FLUSH ASDIRECTED PRN Peripheral IV Insertion Adult [OM.PC] Urgent 08/17/17 03:15 Lactated Ringers [Ringers, Lactated] 1,000 ml IV ASDIRECTED 08/17/17 03:54 Iopamidol [Isovue-300 (61%)] 141 ml IV . DIRECTED PRN 08/17/17 04:00 Sodium Chloride 0.9% [Normal Saline] 86 ml IV ASDIRECTED - Assessment/Plan Last 24 Hours: My Active Orders 08/17/17 03:08 Peripheral IV Care [RC] . DIRECTED Abdomen Pelvis w Cont [CT] Urgent Sodium Chloride 0.9% [Saline Flush] 10 ml FLUSH ASDIRECTED PRN Peripheral IV Insertion Adult [OM.PC] Urgent 08/17/17 03:15 Lactated Ringers [Ringers, Lactated] 1,000 ml IV ASDIRECTED 08/17/17 03:54 Iopamidol [Isovue-300 (61%)] 141 ml IV . DIRECTED PRN 08/17/17 04:00 Sodium Chloride 0.9% [Normal Saline] 86 ml IV ASDIRECTED Plan: Assessment Acuity = acute Site and laterality = small bowel obstruction Etiology = probably secondary to recent surgeries with adhesions Manifestations = abdominal pain, nausea Location of injury = Home Lab values = CBC, CMP, urinalysis unremarkable CT scan described small obstruction above Plan Called discussed case with hospitalist on-call they agreed, and evaluate the patient ED for admission This note was dictated using [employer] voice recognition software please call with any questions on syntax or ye.
[2017-08-17] MEDS ORDERED: fentaNYL 100 MCG/2 ML SDV IVPUSH ONE ×2 (03:09→04:59)
[2017-08-17] MEDS ORDERED: Ondansetron 4 MG/2 ML SDV IVPUSH ONE (03:09)
[2017-08-17] MEDS ORDERED: Lactated Ringers 1,000 ML IV SCH (03:15)
[2017-08-17] MEDS: Sodium Chloride 0.9% 10 ML Syringe FLUSH PRN ×3 (03:20→05:13)
[2017-08-17] MEDS ORDERED: Iopamidol 612 MG/ML 150 ML Bottle IV PRN (03:54)
[2017-08-17] MEDS ORDERED: Sodium Chloride 0.9% 10 ML Syringe FLUSH ONE (03:54)
[2017-08-17] MEDS ORDERED: Sodium Chloride 0.9% 86 ML IV SCH (04:00)
[2017-08-17] MEDS ORDERED: Lactated Ringers 1,000 ML IV ONE (05:42)
[2017-08-17] MEDS ORDERED: HYDROmorphone 1 MG/ML Syringe IVPUSH ONE (06:28)
[2017-08-17] MEDS ORDERED: Aluminum Hydroxide/Magnesium Hydroxide/Simethicone Susp 30 ML Cup PO ONE (09:57)
--- NOTE | 2017-08-17 12:10 | PCM.HP ---
H&P History of Present Illness - General Date of Service: 08/17/17 Admit Problem/Dx: Admission Diagnosis/Problem Admission Diagnosis/Problem Small bowel obstruction Source of Information: Patient, Family, Old Records, Provider, RN Notes Reviewed History Limitations: Reports: No Limitations - History of Present Illness Initial Comments - Free Text/Narative: Mr. Ascencio is a 77-year-old gentleman who was admitted through the emergency department for further evaluation and management of a mechanical small bowel obstruction. He has had a previous history of abdominal surgeries including partial colon resection done 4 years ago as well as a perforated duodenal ulcer requiring surgical intervention. He's had 2 previous episodes of mechanical bowel obstruction, the first episode required exploratory laparotomy and lysis of adhesions, the second episode was managed conservatively. The most recent episode occurred within the past 3 months. He was feeling well until he awoke from sleep shortly after he gone to bed with upper abdominal pain described as cramping in nature occurring intermittently. Symptoms became more severe and he presented to the emergency department for further evaluation and management. Laboratory studies were unremarkable, CT scan of the abdomen shows evidence of a mechanical small bowel obstruction. Lower Middle Abdomen Pain Score (Numeric/FACES): 8 - Related Data Allergies/Adverse Reactions: Allergies Allergy/AdvReac Type Severity Reaction Status Date / Time erythromycin base Allergy Unknown Blisters Verified 08/17/17 01:53 [Erythromycin Base] Home Medications: Home Meds Aspirin [[place] Aspirin] 81 mg PO DAILY 02/17/14 [History] Triamcinolone Acetonide [Triamcinolone Acetonide 0.5% Oint] 15 gm TOP ASDIRECTED 08/17/17 [History] Past Medical History HEENT History: Reports: Hard of Hearing, Impaired Vision Gastrointestinal History: Reports: Bowel Obstruction, Colon Polyp Hematologic History: Reports: Blood Transfusion(s) Oncologic (Cancer) History: Reports: Colon - Infectious Disease History Infectious Disease History: Reports: Chicken Pox - Past Surgical History GI Surgical History: Reports: Colon, Colonoscopy, Lysis of Adhesions, Small Bowel, Other (See Below) Other GI Surgeries/Procedures: ruptured ulcer in small intestine Social & Family History - Family History Family Medical History: Noncontributory - Tobacco Use Smoking Status *Q: Never Smoker Years of Tobacco use: 5 Packs/Tins Daily: 0.5 Used Tobacco, but Quit: Yes Month Tobacco Last Used: 40 yrs ago Second Hand Smoke Exposure: No - Caffeine Use Caffeine Use: Reports: Coffee Caffeine Use Comment: 2-3 cups/day - Alcohol Use Days Per Week of Alcohol Use: 5 Number of Drinks Per Day: 2 Total Drinks Per Week: 10 - Recreational Drug Use Recreational Drug Use: No H&P Review of Systems - Review of Systems: Review Of Systems: See Below General: Denies: Fever, Chills, Weakness, Diaphoresis HEENT: Reports: No Symptoms Pulmonary: Reports: No Symptoms Cardiovascular: Reports: No Symptoms Gastrointestinal: Reports: Abdominal Pain, Distension. Denies: Black Stool, Bloody Stool, Constipation, Diarrhea, Decreased Appetite, Difficulty Swallowing Genitourinary: Reports: No Symptoms Musculoskeletal: Reports: No Symptoms Skin: Reports: No Symptoms Psychiatric: Reports: No Symptoms Neurological: Reports: No Symptoms Hematologic/Lymphatic: Reports: No Symptoms Immunologic: Reports: No Symptoms Exam - Exam Exam: See Below - Vital Signs Vital Signs: Last Vital Signs Temp 97.5 F 08/17/17 06:25 Pulse 89 08/17/17 09:45 Resp 18 08/17/17 09:45 BP 139/82 08/17/17 09:45 Pulse Ox 98 08/17/17 09:45 Weight: 205 lb 0.478 oz - Exam Quality Assessment: DVT Prophylaxis, Other (Nasogastric tube) General: Alert, Oriented, Cooperative, Mild Distress HEENT: Conjunctiva Clear, Mucosa Moist & [place]. No: Hearing Intact, Normal Nasal Septum, Posterior Pharynx Clear, Pupils Equal Neck: Supple, Trachea Midline, +2 Carotid Pulse wo Bruit Lungs: Clear to Auscultation, Normal Respiratory Effort Cardiovascular: Regular Rate, Regular Rhythm, Normal S1, Normal S2. No: Systolic Murmur, Diastolic Murmur GI/Abdominal Exam: Soft, Non-Tender, No Organomegaly, No Distention Back Exam: Normal Inspection, Full Range of Motion Extremities: Non-Tender, No Pedal Edema Skin: Warm, Dry, Intact Neurological: Cranial Nerves Intact, Strength Equal Bilateral, Normal Speech, Normal Tone, Sensation Intact. No: Focal Deficit Neuro Extensive - Mental Status: Alert, Oriented x3, Normal Mood/Affect, Normal Cognition, Memory Intact - Patient Data Lab Results Last 24 hrs: Laboratory Results - last 24 hr 08/17/17 08/17/17 08/17/17 Range/Units 03:10 03:10 03:10 WBC 7.4 (4.5-11.0) K/uL RBC 5.13 (4.30-5.90) M/uL Hgb 16.1 H D (12.0-15.0) g/dL Hct 47.9 (40.0-54.0) % MCV 93 (80-98) fL MCH 31 (27-31) pg MCHC 34 (32-36) % Plt Count 272 (150-400) K/uL Neut % (Auto) 73 H (36-66) % Lymph % (Auto) 13 L (24-44) % [place] % (Auto) 10 H (2-6) % Eos % (Auto) 4 (2-4) % Baso % (Auto) 0 (0-1) % Sodium 140 (140-148) mmol/L Potassium 4.5 (3.6-5.2) mmol/L Chloride 102 (100-108) mmol/L Carbon Dioxide 30 (21-32) mmol/L Anion Gap 8.5 (5.0-14.0) mmol/L BUN 15 D (7-18) mg/dL Creatinine 1.1 (0.8-1.3) mg/dL Est Cr Clr Drug Dosing 58.07 mL/min Estimated GFR (MDRD) > 60 (>60) Glucose 118 H (74-106) mg/dL Lactic Acid 0.8 (0.4-2.0) mmol/L Calcium 9.1 (8.5-10.1) mg/dL Total Bilirubin 0.5 (0.2-1.0) mg/dL AST 23 (15-37) U/L ALT 31 (12-78) U/L Alkaline Phosphatase 62 D (46-116) U/L Troponin I < 0.017 (0.000-0.056) ng/mL Total Protein 7.9 (6.4-8.2) g/dL Albumin 4.3 (3.4-5.0) g/dL Globulin 3.6 H (2.3-3.5) g/dL Albumin/Globulin Ratio 1.2 (1.2-2.2) Lipase 145 (73-393) U/L Urine Color Urine Appearance Urine pH (4.5-8.0) Ur Specific [place] (1.008-1.030) Urine Protein (NEGATIVE) mg/dL Urine Glucose (UA) (NEGATIVE) mg/dL Urine Ketones (NEGATIVE) mg/dL Urine Occult Blood (NEGATIVE) Urine Nitrite (NEGAITVE) Urine Bilirubin (NEGATIVE) Urine Urobilinogen (NORMAL) mg/dL Ur Leukocyte Esterase (NEGATIVE) Urine RBC (0-5) Urine WBC (0-5) Ur Epithelial Cells Amorphous Sediment Urine Bacteria Urine Mucus 08/17/17 Range/Units 03:54 WBC (4.5-11.0) K/uL RBC (4.30-5.90) M/uL Hgb (12.0-15.0) g/dL Hct (40.0-54.0) % MCV (80-98) fL MCH (27-31) pg MCHC (32-36) % Plt Count (150-400) K/uL Neut % (Auto) (36-66) % Lymph % (Auto) (24-44) % [place] % (Auto) (2-6) % Eos % (Auto) (2-4) % Baso % (Auto) (0-1) % Sodium (140-148) mmol/L Potassium (3.6-5.2) mmol/L Chloride (100-108) mmol/L Carbon Dioxide (21-32) mmol/L Anion Gap (5.0-14.0) mmol/L BUN (7-18) mg/dL Creatinine (0.8-1.3) mg/dL Est Cr Clr Drug Dosing mL/min Estimated GFR (MDRD) (>60) Glucose (74-106) mg/dL Lactic Acid (0.4-2.0) mmol/L Calcium (8.5-10.1) mg/dL Total Bilirubin (0.2-1.0) mg/dL AST (15-37) U/L ALT (12-78) U/L Alkaline Phosphatase (46-116) U/L Troponin I (0.000-0.056) ng/mL Total Protein (6.4-8.2) g/dL Albumin (3.4-5.0) g/dL Globulin (2.3-3.5) g/dL Albumin/Globulin Ratio (1.2-2.2) Lipase (73-393) U/L Urine Color Yellow Urine Appearance Clear Urine pH 6.0 (4.5-8.0) Ur Specific [place] 1.015 (1.008-1.030) Urine Protein Negative (NEGATIVE) mg/dL Urine Glucose (UA) Normal (NEGATIVE) mg/dL Urine Ketones Negative (NEGATIVE) mg/dL Urine Occult Blood Negative (NEGATIVE) Urine Nitrite Negative (NEGAITVE) Urine Bilirubin Negative (NEGATIVE) Urine Urobilinogen Normal (NORMAL) mg/dL Ur Leukocyte Esterase Small (NEGATIVE) Urine RBC 0-5 (0-5) Urine WBC 0-5 (0-5) Ur Epithelial Cells Rare Amorphous Sediment Few Urine Bacteria Few Urine Mucus Not seen Result Diagrams: 08/17/17 03:10 08/17/17 03:10 *Q Meaningful Use (ADM) - VTE *Q VTE Criteria *Q: VTE Pharmacological Contraindications *Q: Patient Scheduled Surgery - VTE Risk Assess *Q Each Risk Factor Represents 1 Point: Obesity ( BMI > 25 kg/m2) Total Score 1 Point Risk Factors: 1 Each Risk Factor Represents 2 Points: None Total Score 2 Point Risk Factors: 0 Each Risk Factor Represents 3 Points: Age 75 Years or Greater Total Score 3 Point Risk Factors: 3 Each Risk Factor Represents 5 Points: None Total Score 5 Point Risk Factors: 0 Venous Thromboembolism Risk Factor Score *Q: 4 - Stroke *Q Stroke Criteria *Q: - AMI *Q AMI Criteria *Q: Problem List Initiated/Reviewed/Updated: Yes Orders Last 24hrs: Active Orders 24 hr Category Date Time Status Patient Status Manage Transfer [TRANSFER] Routine ADT 08/17/17 11:56 Ordered Gastrointestinal Tube Mgmt [RC] ASDIRECTED Care 08/17/17 05:15 Active Peripheral IV Care [RC] . DIRECTED Care 08/17/17 03:08 Active Abdomen Pelvis w Cont [CT] Urgent Exams 08/17/17 03:08 Taken Iopamidol [Isovue-300 (61%)] Med 08/17/17 03:54 Active 141 ml IV . DIRECTED PRN Lactated Ringers [Ringers, Lactated] 1,000 ml Med 08/17/17 03:15 Active IV ASDIRECTED Sodium Chloride 0.9% [Normal Saline] 86 ml Med 08/17/17 04:00 Active IV ASDIRECTED Sodium Chloride 0.9% [Saline Flush] Med 08/17/17 03:08 Active 10 ml FLUSH ASDIRECTED PRN Nasogastric Orogastric Tube Insertion [OM.PC] Routine Oth 08/17/17 05:15 Ordered Peripheral IV Insertion Adult [OM.PC] Urgent Oth 08/17/17 03:08 Ordered Resuscitation Status Routine Resus Stat 08/17/17 11:58 Ordered Medication Orders Lactated Ringer's (Ringers, Lactated) 1,000 mls @ 500 mls/hr IV ASDIRECTED [facility] Last Admin: 08/17/17 03:22 Dose: 500 mls/hr Sodium Chloride (Normal Saline) 86 mls @ 3.5 mls/sec IV ASDIRECTED NATHALIE Last Admin: 08/17/17 04:10 Dose: 3.5 mls/sec Iopamidol (Isovue-300 (61%)) 141 ml IV . DIRECTED PRN PRN Reason: RADIOLOGY EXAM Stop: 08/18/17 03:55 Last Admin: 08/17/17 04:10 Dose: 141 ml Sodium Chloride (Saline Flush) 10 ml FLUSH ASDIRECTED PRN PRN Reason: Keep Vein Open Last Admin: 08/17/17 05:13 Dose: 10 ml Admin: 08/17/17 04:08 Dose: 10 ml Admin: 08/17/17 03:20 Dose: 10 ml Assessment/Plan Comment:: ASSESSMENT AND PLAN MECHANICAL SMALL BOWEL OBSTRUCTION-recurrent episode, history of previous abdominal surgeries as outlined above. -Nothing by mouth -IV fluids for hydration -Nasogastric tube to low intermittent suction -Abdominal flat plate and upright x-ray in a.m. -Anti-medic therapy and pain meds as needed -Consult Dr. Guido for surgical opinion in a.m. MAINTENANCE ISSUES -DVT prophylaxis; SCUDs, hold on anticoagulation because of potential need for surgical intervention -GI prophylaxis; not indicated -Damon catheter; not indicated -Nutrition; nothing by mouth -Nicotine dependence; not required CODE STATUS-FULL CODE ADMISSION STATUS-patient will be admitted to inpatient status, expect at least a 2 night hospital stay for evaluation and management of problems as outlined above. At the time of this admission I do not reasonably expected evaluation and management of this problem will require more than a 96 hour hospital stay. DISPOSITION-anticipate discharge to home after the hospital stay. PRIMARY CARE PROVIDER-Frederic Calderon
[2017-08-17] MEDS ORDERED: Ondansetron 4 MG/2 ML SDV IV PRN (12:58)
[2017-08-17] MEDS ORDERED: Sodium Chloride 0.9% 10 ML Syringe FLUSH PRN (12:58)
[2017-08-17] MEDS ORDERED: Acetaminophen 325 MG Tab PO PRN (12:58)
[2017-08-17] MEDS: Lactated Ringers 1,000 ML IV SCH ×2 (13:12→19:58)
[2017-08-17] MEDS: HYDROmorphone 0.5 MG/0.5 ML Syringe IVPUSH PRN ×4 (15:07→21:54)
[2017-08-18] MEDS: HYDROmorphone 0.5 MG/0.5 ML Syringe IVPUSH PRN ×6 (02:01→11:43)
[2017-08-18] MEDS: Lactated Ringers 1,000 ML IV SCH (05:24)
[2017-08-18] MEDS ORDERED: Lidocaine 2% 100 MG/5 ML Syringe IVPUSH ONE (10:00)
[2017-08-18] MEDS ORDERED: fentaNYL 250 MCG/5 ML SDV ONE ×2 (10:04→12:34)
--- NOTE | 2017-08-18 10:04 | PCM.HP ---
H&P History of Present Illness - General Admit Problem/Dx: Admission Diagnosis/Problem Admission Diagnosis/Problem Small bowel obstruction Source of Information: Patient, Old Records - History of Present Illness Initial Comments - Free Text/Narative: Pt states he had cramping generalized abdominal pain starting around 10PM on Friday night that was intermittent in nature. He was able to fall asleep, but awoke around 2AM with worsened abdominal cramping that was more persistent, which prompted him to go the ED, where he was examined by Dr. Boucherr, and admitted by Dr. Berg for medical management and observation of CT-confirmed small bowel obstruction. He does have a history of mechanical small bowel obstruction, most recently in May 2017, as well as a history of Richardson syndrome, and partial colectomy in 2013. See Dr[address] Berg's H&P for further history Onset of Symptoms: Reports: Sudden Symptom Onset Date: 08/16/17 Duration of Symptoms: Reports: Getting Worse Quality: Reports: Same as Previous Episode, Other (crampy) Severity: Moderate Lower Middle Abdomen Pain Score (Numeric/FACES): 4 - Related Data Allergies/Adverse Reactions: Allergies Allergy/AdvReac Type Severity Reaction Status Date / Time erythromycin base Allergy Unknown Blisters Verified 08/17/17 01:53 [Erythromycin Base] Home Medications: Home Meds Aspirin [[place]ura Aspirin] 81 mg PO DAILY 02/17/14 [History] Triamcinolone Acetonide [Triamcinolone Acetonide 0.5% Oint] 15 gm TOP ASDIRECTED 08/17/17 [History] Past Medical History HEENT History: Reports: Hard of Hearing, Impaired Vision Gastrointestinal History: Reports: Bowel Obstruction, Colon Polyp Hematologic History: Reports: Blood Transfusion(s) Oncologic (Cancer) History: Reports: Colon - Infectious Disease History Infectious Disease History: Reports: Chicken Pox - Past Surgical History GI Surgical History: Reports: Colon, Colonoscopy, Lysis of Adhesions, Small Bowel, Other (See Below) Other GI Surgeries/Procedures: ruptured ulcer in small intestine Social & Family History - Family History Family Medical History: Noncontributory Cardiac: Reports: None - Tobacco Use Smoking Status *Q: Former Smoker Years of Tobacco use: 15 Packs/Tins Daily: 0.5 Used Tobacco, but Quit: No Month Tobacco Last Used: 40 yrs ago Second Hand Smoke Exposure: No - Caffeine Use Caffeine Use: Reports: Coffee Caffeine Use Comment: 2-3 cups/day - Alcohol Use Days Per Week of Alcohol Use: 5 Number of Drinks Per Day: 2 Total Drinks Per Week: 10 Date of Last Drink: 08/15/17 Time of Last Drink: 17:00 - Recreational Drug Use Recreational Drug Use: No H&P Review of Systems - Review of Systems: Review Of Systems: ROS reveals no pertinent complaints other than HPI. Exam - Exam Exam: See Below - Vital Signs Vital Signs: Last Vital Signs Temp 98.1 F 08/18/17 07:00 Pulse 77 08/18/17 07:00 Resp 18 08/18/17 07:00 BP 164/91 H 08/18/17 07:00 Pulse Ox 91 L 08/18/17 07:00 Weight: 198 lb 3.2 oz - Exam Quality Assessment: Other (NG tube in place) General: Alert, Oriented HEENT: Conjunctiva Clear, EOMI Neck: Supple, Trachea Midline Lungs: Clear to Auscultation, Normal Respiratory Effort Cardiovascular: Regular Rate, Regular Rhythm GI/Abdominal Exam: Normal Bowel Sounds, Distended, Tender (mildly tender throughout) Skin: Warm, Dry, Intact - Patient Data Lab Results Last 24 hrs: Laboratory Results - last 24 hr 08/18/17 08/18/17 Range/Units 05:51 05:51 WBC 7.1 (4.5-11.0) K/uL RBC 4.86 (4.30-5.90) M/uL Hgb 15.6 H (12.0-15.0) g/dL Hct 46.3 (40.0-54.0) % MCV 95 (80-98) fL MCH 32 H (27-31) pg MCHC 34 (32-36) % Plt Count 262 (150-400) K/uL Neut % (Auto) 70 H (36-66) % Lymph % (Auto) 14 L (24-44) % [place] % (Auto) 14 H (2-6) % Eos % (Auto) 2 (2-4) % Baso % (Auto) 0 (0-1) % Sodium 142 (140-148) mmol/L Potassium 4.1 (3.6-5.2) mmol/L Chloride 102 (100-108) mmol/L Carbon Dioxide 31 (21-32) mmol/L Anion Gap 8.8 (5.0-14.0) mmol/L BUN 10 (7-18) mg/dL Creatinine 1.2 (0.8-1.3) mg/dL Est Cr Clr Drug Dosing 54.91 mL/min Estimated GFR (MDRD) 59 L (>60) Glucose 118 H (74-106) mg/dL Calcium 8.7 (8.5-10.1) mg/dL Magnesium 1.9 D (1.8-2.4) mg/dL Result Diagrams: 08/18/17 05:51 08/18/17 05:51 *Q Meaningful Use (ADM) - VTE *Q VTE Criteria *Q: VTE Pharmacological Contraindications *Q: Patient Scheduled Surgery - Stroke *Q Stroke Criteria *Q: - AMI *Q AMI Criteria *Q: Problem List Initiated/Reviewed/Updated: Yes Orders Last 24hrs: Active Orders 24 hr Category Date Time Status Patient Status [ADT] Routine ADT 08/17/17 12:58 Active Ambulate [RC] QID Care 08/17/17 12:58 Active Gastrointestinal Tube Mgmt [RC] ASDIRECTED Care 08/17/17 12:58 Active Height and Weight [RC] .PRN Care 08/17/17 12:58 Active Intake and Output [RC] QSHIFT Care 08/17/17 12:58 Active Notify Provider Consults [RC] ASDIRECTED Care 08/17/17 12:58 Active Notify Provider Vital Signs [RC] ASDIRECTED Care 08/17/17 12:58 Active Oxygen Therapy [RC] PRN Care 08/17/17 12:58 Active Peripheral IV Care [RC] . DIRECTED Care 08/17/17 12:58 Active Up to Chair [RC] QID Care 08/17/17 12:58 Active Verify Patient Consent Obtain [RC] ASDIRECTED Care 08/18/17 07:52 Active Vital Signs [RC] Q4H Care 08/17/17 12:58 Active Consult to Physician [CONS] Routine Cons 08/17/17 12:58 Ordered Nothing per Oral Now Diet [DIET] Diet 08/17/17 Lunch Active Abdomen 2V AP Upright Decub [CR] Timed Exams 08/18/17 05:00 Taken Acetaminophen [Tylenol] Med 08/17/17 12:58 Active 650 mg PO Q4H PRN HYDROmorphone [Dilaudid] Med 08/17/17 19:48 Active 0.5 mg IVPUSH Q1H PRN Ketamine [Ketalar] Med 08/18/17 11:00 Active 35 mg IV ASDIRECTED Ketamine [Ketalar] 100 mg Med 08/18/17 11:00 Active Sodium Chloride 0.9% [Normal Saline] 99 ml IV ASDIRECTED Lactated Ringers [Ringers, Lactated] 1,000 ml Med 08/17/17 12:58 Active IV ASDIRECTED Lidocaine 0.4%/D5W [Lidocaine 2 GM/D5W 500 ML] Med 08/18/17 11:00 Active 2 gm in 500 ml IV 1.5 mg/min Lidocaine 2% [Xylocaine 2%] Med 08/18/17 10:00 Once 120 mg IVPUSH ONETIME ONE Ondansetron [Zofran] Med 08/17/17 12:58 Active 4 mg IV Q4H PRN Ropivacaine [Naropin 0.5%] 45 ml Med 08/18/17 11:00 Active Dexamethasone 8 mg EPINEPHrine [Adrenalin] 0.4 mg Sodium Chloride 0.9% [Normal Saline] 32.6 ml NERVRT ONETIME Sodium Chloride 0.9% [Saline Flush] Med 08/17/17 12:58 Active 10 ml FLUSH ASDIRECTED PRN cefOXitin [Mefoxin] 2 gm Med 08/18/17 12:00 Active Sodium Chloride 0.9% [Normal Saline] 50 ml IV ONETIME Peripheral IV Insertion Adult [OM.PC] Routine Oth 08/17/17 12:58 Ordered Sequential Compression Device [OM.PC] Per Unit Routine Oth 08/17/17 12:58 Ordered Ultrasound Chest Marking [OM.PC] Routine Oth 08/18/17 11:00 Ordered VTE Pharmacological Contraindications [AST] Per Unit Oth 08/17/17 12:58 Ordered Routine Resuscitation Status Routine Resus Stat 08/17/17 11:58 Ordered Medication Orders Acetaminophen (Tylenol) 650 mg PO Q4H PRN PRN Reason: Pain (Mild 1-3)/fever Last Admin: 08/17/17 13:59 Dose: 650 mg Ropivacaine 45 ml/Dexamethasone 8 mg/Epinephrine HCl 0.4 mg/ Sodium Chloride 32.6 ml 0 ml NERVRT ONETIME ONE Stop: 08/18/17 11:01 Hydromorphone HCl (Dilaudid) 0.5 mg IVPUSH Q1H PRN PRN Reason: Pain Last Admin: 08/18/17 08:53 Dose: 0.5 mg Admin: 08/18/17 07:06 Dose: 0.5 mg Admin: 08/18/17 05:24 Dose: 0.5 mg Admin: 08/18/17 04:01 Dose: 0.5 mg Admin: 08/18/17 02:01 Dose: 0.5 mg Admin: 08/17/17 21:54 Dose: 0.5 mg Admin: 08/17/17 19:57 Dose: 0.5 mg Lactated Ringer's (Ringers, Lactated) 1,000 mls @ 125 mls/hr IV ASDIRECTED [facility] Last Admin: 08/18/17 05:24 Dose: 125 mls/hr Infusion: 08/18/17 03:58 Dose: 125 mls/hr Admin: 08/17/17 19:58 Dose: 125 mls/hr Infusion: 08/17/17 19:58 Dose: 125 mls/hr Admin: 08/17/17 13:12 Dose: 125 mls/hr Cefoxitin Sodium 2 gm/ Sodium (Chloride) 50 mls @ 100 mls/hr IV ONETIME ONE Stop: 08/18/17 12:29 Lidocaine HCl/Dextrose (Lidocaine 2 Gm/D5w 500 Ml) 2 gm in 500 mls @ 22.5 mls/ hr IV .[id number] [facility] PRN Reason: 1.5 MG/MIN Ketamine HCl 100 mg/ Sodium (Chloride) 100 mls @ 22.5 mls/hr IV ASDIRECTED [facility] PRN Reason: 5 MCG/KG/MIN Ketamine HCl (Ketalar) 35 mg IV ASDIRECTED [facility] Lidocaine HCl (Xylocaine 2%) 120 mg IVPUSH ONETIME ONE Stop: 08/18/17 10:01 Ondansetron HCl (Zofran) 4 mg IV Q4H PRN PRN Reason: Nausea/Vomiting Sodium Chloride (Saline Flush) 10 ml FLUSH ASDIRECTED PRN PRN Reason: Keep Vein Open Assessment/Plan Comment:: ASSESSMENT AND PLAN MECHANICAL SMALL BOWEL OBSTRUCTION-recurrent episode, history of previous abdominal surgeries as outlined above. NG tube in place (700 out overnight) -Nothing by mouth -IV fluids for hydration -Nasogastric tube to low intermittent suction -Plan for surgical lysis of adhesions today MAINTENANCE ISSUES -DVT prophylaxis; SCUDs, hold on anticoagulation because of surgical lysis of adhesions taking place today -GI prophylaxis; not indicated -Damon catheter; not indicated -Nutrition; nothing by mouth -Nicotine dependence; not required CODE STATUS-FULL CODE ADMISSION STATUS-patient will be admitted to inpatient status, expect at least a 2 night hospital stay for evaluation and management of problems as outlined above. At the time of this admission I do not reasonably expected evaluation and management of this problem will require more than a 96 hour hospital stay. DISPOSITION-anticipate discharge to home after the hospital stay. PRIMARY CARE PROVIDER-Frederic Calderon
--- NOTE | 2017-08-18 10:22 | CR ---
Abdomen 2V AP Upright Decub HISTORY: Small bowel obstruction. COMPARISON: 08/17/2017. FINDINGS: NG tube within the stomach. Surgical clips overlying the mid right abdomen and the stomach. There remains dilated loops of small bowel with air-fluid levels in the left abdomen and the pelvis similar to prior CT scan. Some of the small bowel loops have been decompressed with the NG tube place ment. Recommend follow-up plain films to confirm improvement.
[2017-08-18] MEDS ORDERED: Dexamethasone 4 MG/ML SDV ONE (10:27)
[2017-08-18] MEDS ORDERED: Succinylcholine 200 MG/10 ML MDV ONE (10:27)
[2017-08-18] MEDS ORDERED: Ondansetron 4 MG/2 ML SDV ONE (10:27)
[2017-08-18] MEDS ORDERED: Neostigmine Methylsulfate 1 MG/ML 5 ML Syringe ONE (10:27)
[2017-08-18] MEDS ORDERED: Rocuronium 50 MG/5 ML Vial ONE (10:27)
[2017-08-18] MEDS ORDERED: Propofol 200 MG/20 ML SDV ONE (10:27)
[2017-08-18] MEDS ORDERED: Glycopyrrolate 0.2 MG/ML 5 ML MDV ONE (10:27)
[2017-08-18] MEDS ORDERED: Lactated Ringers 1,000 ML ONE (10:53)
[2017-08-18] MEDS ORDERED: Ketamine 500 MG/5 ML MDV IV SCH (11:00)
[2017-08-18] MEDS ORDERED: Ropivacaine 45 ML, Dexamethasone 8 MG, EPINEPHrine 0.4 MG, Sodium Chloride 0.9% 32.6 ML NERVRT ONE ×4 (11:00)
[2017-08-18] MEDS ORDERED: cefOXitin 2 GM in Sodium Chloride 0.9% 50 ML IV ONE (12:00)
[2017-08-18] MEDS: Meropenem 500 MG SDV ONE ×2 (12:55→14:50)
[2017-08-18] MEDS: Lidocaine 0.4%/D5W 2 GM/500 ML BAG IV SCH (16:30)
[2017-08-18] MEDS: Dextrose 5%-Lactated Ringers 1,000 ML IV SCH ×2 (17:00→23:38)
[2017-08-18] MEDS ORDERED: Naloxone 0.4 MG/ML SDV IV PRN (17:00)
[2017-08-18] MEDS ORDERED: Benzocaine/Cetylpyridinium/Menthol Lozenge MUCMEM PRN (17:28)
--- NOTE | 2017-08-18 17:45 | PCM.PN ---
- General Info Date of Service: 08/18/17 Functional Status: Reports: Pain Controlled - Review of Systems Gastrointestinal: Reports: Abdominal Pain Systems Review Comment:: there were no acute events overnight. Darshan underwent an exploratory laparotomy with lysis of adhesions, small bowel resection, release of small bowel obstruction today. Postoperatively he is reporting that his pain control is good. He has moderate hypertension with systolic pressures in the 160s. He has ongoing NG tube drainage. No nausea. - Patient Data Vitals - Most Recent: Last Vital Signs Temp 37.4 C 08/18/17 17:00 Pulse 98 08/18/17 17:29 Resp 16 08/18/17 17:29 BP 169/102 H 08/18/17 17:29 Pulse Ox 91 L 08/18/17 17:29 Weight - Most Recent: 89.902 kg I&O - Last 24 Hours: Intake & Output 08/18/17 08/18/17 08/18/17 06:59 14:59 22:59 Intake Total 758 75 Output Total 200 200 300 Balance 558 -200 -225 Lab Results Last 24 Hours: Laboratory Results - last 24 hr 08/18/17 08/18/17 Range/Units 05:51 05:51 WBC 7.1 (4.5-11.0) K/uL RBC 4.86 (4.30-5.90) M/uL Hgb 15.6 H (12.0-15.0) g/dL Hct 46.3 (40.0-54.0) % MCV 95 (80-98) fL MCH 32 H (27-31) pg MCHC 34 (32-36) % Plt Count 262 (150-400) K/uL Neut % (Auto) 70 H (36-66) % Lymph % (Auto) 14 L (24-44) % [place] % (Auto) 14 H (2-6) % Eos % (Auto) 2 (2-4) % Baso % (Auto) 0 (0-1) % Sodium 142 (140-148) mmol/L Potassium 4.1 (3.6-5.2) mmol/L Chloride 102 (100-108) mmol/L Carbon Dioxide 31 (21-32) mmol/L Anion Gap 8.8 (5.0-14.0) mmol/L BUN 10 (7-18) mg/dL Creatinine 1.2 (0.8-1.3) mg/dL Est Cr Clr Drug Dosing 54.91 mL/min Estimated GFR (MDRD) 59 L (>60) Glucose 118 H (74-106) mg/dL Calcium 8.7 (8.5-10.1) mg/dL Magnesium 1.9 D (1.8-2.4) mg/dL Med Orders - Current: Current Medications Benzocaine/Menthol (Cepacol Sore Throat) 1 lozenge MUCMEM 6XDAY PRN PRN Reason: throat pain Hydromorphone HCl (Dilaudid [employer] 15 Mg In Ns 30 Ml) 0 mg IV ASDIRECTED PRN; Protocol PRN Reason: Pain Hydroxyzine HCl (Vistaril) 100 mg IM Q4H PRN PRN Reason: pain Lidocaine HCl/Dextrose (Lidocaine 2 Gm/D5w 500 Ml) 2 gm in 500 mls @ 22.5 mls/ hr IV .[id number] [facility] PRN Reason: 1.5 MG/MIN Stop: 08/19/17 15:00 Last Admin: 08/18/17 16:30 Dose: 1.5 mg/min, 22.5 mls/hr Dextrose/Lactated Ringer's (Dextrose 5%-Lactated Ringers) 1,000 mls @ 175 mls/ hr IV ASDIRECTED [facility] Last Admin: 08/18/17 17:00 Dose: 175 mls/hr Cefoxitin Sodium 2 gm/ Sodium (Chloride) 50 mls @ 100 mls/hr IV Q6H [facility] Stop: 08/20/17 12:29 Metoclopramide HCl (Reglan) 10 mg IVPUSH Q6H [facility] Naloxone HCl (Narcan) 0.4 mg IV ASDIRECTED PRN PRN Reason: RESPIRATORY RATE LESS THAN 12 Pantoprazole Sodium (Protonix Iv) 40 mg IVPUSH Q12H [facility] Discontinued Medications Acetaminophen (Tylenol) 650 mg PO Q4H PRN PRN Reason: Pain (Mild 1-3)/fever Last Admin: 08/17/17 13:59 Dose: 650 mg Al Hydroxide/Mg Hydroxide (Mag-Al Plus) 30 ml PO ONETIME ONE Stop: 08/17/17 09:58 Last Admin: 08/17/17 10:01 Dose: 30 ml Ropivacaine 45 ml/Dexamethasone 8 mg/Epinephrine HCl 0.4 mg/ Sodium Chloride 32.6 ml 0 ml NERVRT ONETIME ONE Stop: 08/18/17 11:01 Last Admin: 08/18/17 12:58 Dose: 2 syringe Dexamethasone (Dexamethasone) Confirm Administered Dose 4 mg .ROUTE .STK-MED ONE Stop: 08/18/17 10:28 Fentanyl (Sublimaze) 50 mcg IVPUSH ONETIME ONE Stop: 08/17/17 03:10 Last Admin: 08/17/17 03:26 Dose: 50 mcg Fentanyl (Sublimaze) 50 mcg IVPUSH ONETIME ONE Stop: 08/17/17 05:00 Last Admin: 08/17/17 05:09 Dose: 50 mcg Fentanyl (Sublimaze) Confirm Administered Dose 250 mcg .ROUTE .STK-MED ONE Stop: 08/18/17 10:05 Fentanyl (Sublimaze) Confirm Administered Dose 250 mcg .ROUTE .STK-MED ONE Stop: 08/18/17 12:35 Glycopyrrolate (Robinul) Confirm Administered Dose 1 mg .ROUTE .STK-MED ONE Stop: 08/18/17 10:28 Heparin Sodium (Porcine) (Heparin Lock Flush 100 Units/Ml) Confirm Administered Dose 500 units .ROUTE .STK-MED ONE Stop: 08/18/17 13:52 Last Admin: 08/18/17 15:00 Dose: 500 units Hydromorphone HCl (Dilaudid) 1 mg IVPUSH ONETIME ONE Stop: 08/17/17 06:29 Last Admin: 08/17/17 06:33 Dose: 1 mg Hydromorphone HCl (Dilaudid) 0.5 mg IVPUSH Q2H PRN PRN Reason: Pain Last Admin: 08/17/17 18:24 Dose: 0.5 mg Hydromorphone HCl (Dilaudid) 0.5 mg IVPUSH Q1H PRN PRN Reason: Pain Last Admin: 08/18/17 11:43 Dose: 0.5 mg Lactated Ringer's (Ringers, Lactated) 1,000 mls @ 500 mls/hr IV ASDIRECTED [facility] Last Admin: 08/17/17 03:22 Dose: 500 mls/hr Sodium Chloride (Normal Saline) 86 mls @ 3.5 mls/sec IV ASDIRECTED [facility] Last Admin: 08/17/17 04:10 Dose: 3.5 mls/sec Lactated Ringer's (Ringers, Lactated) 1,000 mls @ 999 mls/hr IV BOLUS ONE Stop: 08/17/17 06:42 Last Admin: 08/17/17 05:49 Dose: 999 mls/hr Lactated Ringer's (Ringers, Lactated) 1,000 mls @ 125 mls/hr IV ASDIRECTED [facility] Last Admin: 08/18/17 05:24 Dose: 125 mls/hr Cefoxitin Sodium 2 gm/ Sodium (Chloride) 50 mls @ 100 mls/hr IV ONETIME ONE Stop: 08/18/17 12:29 Last Admin: 08/18/17 12:13 Dose: 100 mls/hr Ketamine HCl 100 mg/ Sodium (Chloride) 100 mls @ 22.5 mls/hr IV ASDIRECTED [facility] PRN Reason: 5 MCG/KG/MIN Lactated Ringer's (Ringers, Lactated) Confirm Administered Dose 1,000 mls @ as directed .ROUTE .STK-MED ONE Stop: 08/18/17 10:54 Iopamidol (Isovue-300 (61%)) 141 ml IV . DIRECTED PRN PRN Reason: RADIOLOGY EXAM Stop: 08/18/17 03:55 Last Admin: 08/17/17 04:10 Dose: 141 ml Ketamine HCl (Ketalar) 35 mg IV ASDIRECTED [facility] Lidocaine HCl (Xylocaine 2%) 120 mg IVPUSH ONETIME ONE Stop: 08/18/17 10:01 Last Admin: 08/18/17 14:53 Dose: Not Given Meropenem (Merrem) Confirm Administered Dose 500 mg .ROUTE .STK-MED ONE Stop: 08/18/17 10:07 Last Admin: 08/18/17 14:50 Dose: 500 mg Neostigmine Methylsulfate (Neostigmine) Confirm Administered Dose 5 mg .ROUTE .STK-MED ONE Stop: 08/18/17 10:28 Ondansetron HCl (Zofran) 4 mg IVPUSH ONETIME ONE Stop: 08/17/17 03:10 Last Admin: 08/17/17 03:23 Dose: 4 mg Ondansetron HCl (Zofran) 4 mg IV Q4H PRN PRN Reason: Nausea/Vomiting Ondansetron HCl (Zofran) Confirm Administered Dose 4 mg .ROUTE .STK-MED ONE Stop: 08/18/17 10:28 Propofol (Diprivan 20 Ml) Confirm Administered Dose 200 mg .ROUTE .STK-MED ONE Stop: 08/18/17 10:28 Rocuronium [place] (Zemuron) Confirm Administered Dose 50 mg .ROUTE .STK-MED ONE Stop: 08/18/17 10:28 Sodium Chloride (Saline Flush) 10 ml FLUSH ASDIRECTED PRN PRN Reason: Keep Vein Open Last Admin: 08/17/17 05:13 Dose: 10 ml Sodium Chloride (Saline Flush) 10 ml FLUSH ONETIME ONE Stop: 08/17/17 03:55 Last Admin: 08/17/17 05:50 Dose: 10 ml Sodium Chloride (Saline Flush) 10 ml FLUSH ASDIRECTED PRN PRN Reason: Keep Vein Open Succinylcholine Chloride (Quelicin) Confirm Administered Dose 200 mg .ROUTE .STK -MED ONE Stop: 08/18/17 10:28 - Exam Quality Assessment: No: Supplemental Oxygen General: Alert, Oriented, Cooperative, No Acute Distress HEENT: Other (NG tube in place) Neck: Supple Lungs: Clear to Auscultation, Normal Respiratory Effort Cardiovascular: Regular Rate, Regular Rhythm GI/Abdominal Exam: No Distention Extremities: No Pedal Edema Psy/Mental Status: Alert, Normal Affect - Problem List Review Problem List Initiated/Reviewed/Updated: Yes - Plan Plan:: ASSESSMENT AND PLAN MECHANICAL SMALL BOWEL OBSTRUCTION - recurrent episode, now status post exploratory laparotomy and surgical intervention. Pain controlled postoperatively. Vital signs are stable. -Nothing by mouth -IV fluids for hydration -Nasogastric tube to low intermittent suction -additional postoperative cares per surgical team MAINTENANCE ISSUES -DVT prophylaxis; SCUDs -GI prophylaxis; PPI -Damon catheter; not indicated -Nutrition; nothing by mouth DISPOSITION - anticipate discharge to home after the hospital stay. Mateus Stout M.D.
[2017-08-18] MEDS: cefOXitin 2 GM in Sodium Chloride 0.9% 50 ML IV SCH ×2 (17:50→23:38)
[2017-08-18] MEDS: Pantoprazole 40 MG Vial IVPUSH SCH (17:51)
[2017-08-18] MEDS: Metoclopramide 10 MG/2 ML SDV IVPUSH SCH ×2 (17:52→23:43)
[2017-08-19] MEDS: hydrOXYzine HCl 100 MG/2 ML SDV IM PRN (04:55)
[2017-08-19] MEDS: Pantoprazole 40 MG Vial IVPUSH SCH ×2 (05:00→17:38)
[2017-08-19] MEDS: cefOXitin 2 GM in Sodium Chloride 0.9% 50 ML IV SCH ×4 (05:00→23:33)
[2017-08-19] MEDS: Metoclopramide 10 MG/2 ML SDV IVPUSH SCH ×4 (05:00→23:35)
[2017-08-19] MEDS: HYDROmorphone/Normal Saline 15 MG/30 ML PCA IV PRN (06:08)
[2017-08-19] MEDS: Dextrose 5%-Lactated Ringers 1,000 ML IV SCH (06:09)
[2017-08-19] MEDS ORDERED: Dextrose 5%-Lactated Ringers 1,000 ML IV SCH (07:46)
--- NOTE | 2017-08-19 08:49 | CR ---
Chest 1V Frontal HISTORY: Central line placement. COMPARISON: 06/10/2015. FINDINGS: NG tube courses into the stomach. Left-sided central line catheter extends cephalad into th e neck and is not entirely included on today's study. No pneumothorax or focal infiltrates no acute c ongestive change. Impression: Left-sided central line catheter extends cephalad into the neck instead of into the central chest and is not completely visualized. No pneumothorax or infiltrates.
--- NOTE | 2017-08-19 09:08 | PN ---
DATE OF SERVICE: 08/19/2017 SUBJECTIVE: Darshan is postop day #1. Nursing staff started him on the [employer] around 0600 hours. He states he prior to that had a constant ache in his abdomen that he just could not get a control of; now that the [employer] is started, he feels much better. NG put out 300 mL of a light brown drainage. Vital signs have been stable. Temperature max of 99.3. Blood pressure is slightly elevated at 152/85. Damon catheter is intact, output 2400. He does request that this be removed. He would like to get up and start moving. Lidocaine will be completed at 1500 hours. REVIEW OF SYSTEMS: Remainder of review of systems negative for any pertinent positives and negatives. OBJECTIVE: GENERAL: Darshan Ascencio is a 77-year-old male, color flushed. VITAL SIGNS: TPR 99.3, 95, 18. Blood pressure 152/85. HEENT: Negative. NECK: Supple. HEART: Regular rate and rhythm. LUNGS: Clear. ABDOMEN: Dressings dry and intact. Damon catheter is intact. EXTREMITIES: SCDs are on and no peripheral edema. ASSESSMENT: 1. Insertion of left subclavian vein triple-lumen catheter. 2. Exploratory laparotomy with lysis of extensive adhesions and takedown, decompression of the small bowel, repair of deserosalization of the small bowel and enteroenterostomy for repair of small bowel obstruction, for limited peripheral access, small bowel obstruction associated with adhesions and marked deserosalization of the small bowel. Date of surgery 08/18/2017. PLAN: 1. Discontinue Damon catheter. 2. Decrease IV to 125 mL per hour. 3. Continue [employer] for pain. If pain is not controlled, nursing staff is to call and we will start fentanyl patch. 4. We will evaluate p.r.n. or in the a.m. Sana Cid PA-C /[id number]
[2017-08-19] MEDS: Lidocaine 0.4%/D5W 2 GM/500 ML BAG IV SCH (09:11)
--- NOTE | 2017-08-19 10:39 | PCM.PN ---
- General Info Date of Service: 08/19/17 Functional Status: Reports: Pain Controlled - Review of Systems General: Denies: Fever Gastrointestinal: Reports: Abdominal Pain Systems Review Comment:: some difficulty with increased pain overnight but this has been better after the [employer]EL [place] was started. He reported bloating type of abdominal pain. He has been up and walking around twice. Not passing gas as of yet. No complaints of shortness of breath. - Patient Data Vitals - Most Recent: Last Vital Signs Temp 37.4 C 08/19/17 07:00 Pulse 95 08/19/17 07:00 Resp 18 08/19/17 07:00 BP 152/85 H 08/19/17 07:00 Pulse Ox 90 L 08/19/17 07:18 Weight - Most Recent: 89.902 kg I&O - Last 24 Hours: Intake & Output 08/18/17 08/19/17 08/19/17 22:59 06:59 14:59 Intake Total 376 1693 Output Total 2210 515 Balance -1834 1178 Med Orders - Current: Current Medications Benzocaine/Menthol (Cepacol Sore Throat) 1 lozenge MUCMEM 6XDAY PRN PRN Reason: throat pain Last Admin: 08/18/17 17:50 Dose: 1 lozenge Hydromorphone HCl (Dilaudid Director Of [employer] 15 Mg In Ns 30 Ml) 0 mg IV ASDIRECTED PRN; Protocol PRN Reason: Pain Last Admin: 08/19/17 06:08 Dose: 15 mg Hydroxyzine HCl (Vistaril) 100 mg IM Q4H PRN PRN Reason: pain Last Admin: 08/19/17 04:55 Dose: 100 mg Lidocaine HCl/Dextrose (Lidocaine 2 Gm/D5w 500 Ml) 2 gm in 500 mls @ 22.5 mls/ hr IV .[id number] NATHALIE PRN Reason: 1.5 MG/MIN Stop: 08/19/17 15:00 Last Admin: 08/19/17 09:11 Dose: 1.5 mg/min, 22.5 mls/hr Cefoxitin Sodium 2 gm/ Sodium (Chloride) 50 mls @ 100 mls/hr IV Q6H [facility] Stop: 08/20/17 12:29 Last Admin: 08/19/17 05:00 Dose: 100 mls/hr Dextrose/Lactated Ringer's (Dextrose 5%-Lactated Ringers) 1,000 mls @ 100 mls/ hr IV ASDIRECTED NATHALIE Metoclopramide HCl (Reglan) 10 mg IVPUSH Q6H [facility] Last Admin: 08/19/17 05:00 Dose: 10 mg Naloxone HCl (Narcan) 0.4 mg IV ASDIRECTED PRN PRN Reason: RESPIRATORY RATE LESS THAN 12 Pantoprazole Sodium (Protonix Iv) 40 mg IVPUSH Q12H [facility] Last Admin: 08/19/17 05:00 Dose: 40 mg Discontinued Medications Acetaminophen (Tylenol) 650 mg PO Q4H PRN PRN Reason: Pain (Mild 1-3)/fever Last Admin: 08/17/17 13:59 Dose: 650 mg Al Hydroxide/Mg Hydroxide (Mag-Al Plus) 30 ml PO ONETIME ONE Stop: 08/17/17 09:58 Last Admin: 08/17/17 10:01 Dose: 30 ml Ropivacaine 45 ml/Dexamethasone 8 mg/Epinephrine HCl 0.4 mg/ Sodium Chloride 32.6 ml 0 ml NERVRT ONETIME ONE Stop: 08/18/17 11:01 Last Admin: 08/18/17 12:58 Dose: 2 syringe Dexamethasone (Dexamethasone) Confirm Administered Dose 4 mg .ROUTE .STK-MED ONE Stop: 08/18/17 10:28 Fentanyl (Sublimaze) 50 mcg IVPUSH ONETIME ONE Stop: 08/17/17 03:10 Last Admin: 08/17/17 03:26 Dose: 50 mcg Fentanyl (Sublimaze) 50 mcg IVPUSH ONETIME ONE Stop: 08/17/17 05:00 Last Admin: 08/17/17 05:09 Dose: 50 mcg Fentanyl (Sublimaze) Confirm Administered Dose 250 mcg .ROUTE .STK-MED ONE Stop: 08/18/17 10:05 Fentanyl (Sublimaze) Confirm Administered Dose 250 mcg .ROUTE .STK-MED ONE Stop: 08/18/17 12:35 Glycopyrrolate (Robinul) Confirm Administered Dose 1 mg .ROUTE .STK-MED ONE Stop: 08/18/17 10:28 Heparin Sodium (Porcine) (Heparin Lock Flush 100 Units/Ml) Confirm Administered Dose 500 units .ROUTE .STK-MED ONE Stop: 08/18/17 13:52 Last Admin: 08/18/17 15:00 Dose: 500 units Hydromorphone HCl (Dilaudid) 1 mg IVPUSH ONETIME ONE Stop: 08/17/17 06:29 Last Admin: 08/17/17 06:33 Dose: 1 mg Hydromorphone HCl (Dilaudid) 0.5 mg IVPUSH Q2H PRN PRN Reason: Pain Last Admin: 08/17/17 18:24 Dose: 0.5 mg Hydromorphone HCl (Dilaudid) 0.5 mg IVPUSH Q1H PRN PRN Reason: Pain Last Admin: 08/18/17 11:43 Dose: 0.5 mg Lactated Ringer's (Ringers, Lactated) 1,000 mls @ 500 mls/hr IV ASDIRECTED [facility] Last Admin: 08/17/17 03:22 Dose: 500 mls/hr Sodium Chloride (Normal Saline) 86 mls @ 3.5 mls/sec IV ASDIRECTED [facility] Last Admin: 08/17/17 04:10 Dose: 3.5 mls/sec Lactated Ringer's (Ringers, Lactated) 1,000 mls @ 999 mls/hr IV BOLUS ONE Stop: 08/17/17 06:42 Last Admin: 08/17/17 05:49 Dose: 999 mls/hr Lactated Ringer's (Ringers, Lactated) 1,000 mls @ 125 mls/hr IV ASDIRECTED [facility] Last Admin: 08/18/17 05:24 Dose: 125 mls/hr Cefoxitin Sodium 2 gm/ Sodium (Chloride) 50 mls @ 100 mls/hr IV ONETIME ONE Stop: 08/18/17 12:29 Last Admin: 08/18/17 12:13 Dose: 100 mls/hr Ketamine HCl 100 mg/ Sodium (Chloride) 100 mls @ 22.5 mls/hr IV ASDIRECTED [facility] PRN Reason: 5 MCG/KG/MIN Lactated Ringer's (Ringers, Lactated) Confirm Administered Dose 1,000 mls @ as directed .ROUTE .STK-MED ONE Stop: 08/18/17 10:54 Dextrose/Lactated Ringer's (Dextrose 5%-Lactated Ringers) 1,000 mls @ 175 mls/ hr IV ASDIRECTED [facility] Last Admin: 08/19/17 06:09 Dose: 175 mls/hr Iopamidol (Isovue-300 (61%)) 141 ml IV . DIRECTED PRN PRN Reason: RADIOLOGY EXAM Stop: 08/18/17 03:55 Last Admin: 08/17/17 04:10 Dose: 141 ml Ketamine HCl (Ketalar) 35 mg IV ASDIRECTED NATHALIE Lidocaine HCl (Xylocaine 2%) 120 mg IVPUSH ONETIME ONE Stop: 08/18/17 10:01 Last Admin: 08/18/17 14:53 Dose: Not Given Meropenem (Merrem) Confirm Administered Dose 500 mg .ROUTE .STK-MED ONE Stop: 08/18/17 10:07 Last Admin: 08/18/17 14:50 Dose: 500 mg Neostigmine Methylsulfate (Neostigmine) Confirm Administered Dose 5 mg .ROUTE .STK-MED ONE Stop: 08/18/17 10:28 Ondansetron HCl (Zofran) 4 mg IVPUSH ONETIME ONE Stop: 08/17/17 03:10 Last Admin: 08/17/17 03:23 Dose: 4 mg Ondansetron HCl (Zofran) 4 mg IV Q4H PRN PRN Reason: Nausea/Vomiting Ondansetron HCl (Zofran) Confirm Administered Dose 4 mg .ROUTE .STK-MED ONE Stop: 08/18/17 10:28 Propofol (Diprivan 20 Ml) Confirm Administered Dose 200 mg .ROUTE .STK-MED ONE Stop: 08/18/17 10:28 Rocuronium [place] (Zemuron) Confirm Administered Dose 50 mg .ROUTE .STK-MED ONE Stop: 08/18/17 10:28 Sodium Chloride (Saline Flush) 10 ml FLUSH ASDIRECTED PRN PRN Reason: Keep Vein Open Last Admin: 08/17/17 05:13 Dose: 10 ml Sodium Chloride (Saline Flush) 10 ml FLUSH ONETIME ONE Stop: 08/17/17 03:55 Last Admin: 08/17/17 05:50 Dose: 10 ml Sodium Chloride (Saline Flush) 10 ml FLUSH ASDIRECTED PRN PRN Reason: Keep Vein Open Succinylcholine Chloride (Quelicin) Confirm Administered Dose 200 mg .ROUTE .STK -MED ONE Stop: 08/18/17 10:28 - Exam Quality Assessment: No: Supplemental Oxygen General: Alert, Oriented, Cooperative, No Acute Distress HEENT: Other (NG in place) Neck: Supple Lungs: Clear to Auscultation, Normal Respiratory Effort Cardiovascular: Regular Rate, Regular Rhythm GI/Abdominal Exam: No Distention Extremities: No Pedal Edema Psy/Mental Status: Alert, Normal Affect - Problem List Review Problem List Initiated/Reviewed/Updated: Yes - Plan Plan:: ASSESSMENT AND PLAN 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 difficulty with pain control overnight but doing better this morning. Vital signs are stable. -Nothing by mouth -IV fluids for hydration -Nasogastric tube to low intermittent suction -additional postoperative cares per surgical team MAINTENANCE ISSUES -DVT prophylaxis; SCUDs -GI prophylaxis; PPI -Damon catheter; not indicated -Nutrition; nothing by mouth DISPOSITION - anticipate discharge to home after the hospital stay. Mateus Stout M.D.
[2017-08-20] MEDS: Metoclopramide 10 MG/2 ML SDV IVPUSH SCH ×4 (05:53→23:07)
[2017-08-20] MEDS: Pantoprazole 40 MG Vial IVPUSH SCH ×2 (05:53→19:36)
[2017-08-20] MEDS: cefOXitin 2 GM in Sodium Chloride 0.9% 50 ML IV SCH ×2 (05:53→11:29)
--- NOTE | 2017-08-20 09:22 | PN ---
DATE OF SERVICE: 08/20/2017 SUBJECTIVE: Darshan's vital signs have been stable with the exception of blood pressure that has been a little bit high. He has had some cramping, but has not passed gas. NG put out 400 mL. He is also on ice chips and sips of water. REVIEW OF SYSTEMS: Remainder of review of systems negative for any pertinent positives and negatives. OBJECTIVE: GENERAL: Darshan Ascencio is a 77-year-old male. VITAL SIGNS: TPR is 99.3, 91, 18. Blood pressure 158/89. HEENT: Negative. NECK: Supple. HEART: Regular rate and rhythm. LUNGS: Clear. ABDOMEN: Dressings dry and intact. Abdominal binder is on. EXTREMITIES: Without peripheral edema. ASSESSMENT: 1. Insertion of left subclavian vein triple lumen. 2. Exploratory laparotomy with lysis of extensive adhesions and takedown, decompression of small bowel, repair of deserosalization of small bowel and enteroenterostomy of the small bowel obstruction for limited peripheral access, small bowel obstruction associated with adhesions and marked deserosalization of the small bowel. Date of surgery 08/18/2017. PLAN: 1. Fentanyl patch 12 mcg, replace every 72 hours. 2. Continue ambulation and good pulmonary toilet. 3. We will evaluate p.r.n. or in the a.m. Sana Cid PA-C /[id number]
[2017-08-20] MEDS: fentaNYL 12 MCG/HR Transdermal Patch TRDERM SCH (10:01)
--- NOTE | 2017-08-20 10:57 | PCM.PN ---
- General Info Date of Service: 08/20/17 Functional Status: Reports: Pain Controlled, Ambulating - Review of Systems General: Denies: Fever Gastrointestinal: Reports: Abdominal Pain Systems Review Comment:: No acute events overnight. Pain has been well-controlled. Not passing gas as of yet. No complaints of shortness of breath. He has been ambulating in the hallway. - Patient Data Vitals - Most Recent: Last Vital Signs Temp 37.4 C 08/20/17 07:00 Pulse 91 08/20/17 07:00 Resp 18 08/20/17 07:00 BP 158/89 H 08/20/17 07:00 Pulse Ox 91 L 08/20/17 07:16 Weight - Most Recent: 89.902 kg I&O - Last 24 Hours: Intake & Output 08/19/17 08/20/17 08/20/17 22:59 06:59 14:59 Intake Total 2023 948 Output Total 1810 360 Balance 213 588 Lab Results Last 24 Hours: Laboratory Results - last 24 hr 08/20/17 08/20/17 Range/Units 04:15 04:15 WBC 4.2 L (4.5-11.0) K/uL RBC 4.12 L (4.30-5.90) M/uL Hgb 12.8 D (12.0-15.0) g/dL Hct 39.5 L (40.0-54.0) % MCV 96 (80-98) fL MCH 31 (27-31) pg MCHC 32 (32-36) % Plt Count 193 (150-400) K/uL Sodium 138 L (140-148) mmol/L Potassium 3.8 (3.6-5.2) mmol/L Chloride 102 (100-108) mmol/L Carbon Dioxide 29 (21-32) mmol/L Anion Gap 10.8 (5.0-14.0) mmol/L BUN 10 (7-18) mg/dL Creatinine 1.1 (0.8-1.3) mg/dL Est Cr Clr Drug Dosing 59.65 mL/min Estimated GFR (MDRD) > 60 (>60) Glucose 110 H (74-106) mg/dL Calcium 7.9 L (8.5-10.1) mg/dL Phosphorus 2.1 L (2.5-4.9) mg/dL Magnesium 1.8 (1.8-2.4) mg/dL Total Bilirubin 0.8 D (0.2-1.0) mg/dL AST 23 (15-37) U/L ALT 20 (12-78) U/L Alkaline Phosphatase 45 L (46-116) U/L Total Protein 6.1 L (6.4-8.2) g/dL Albumin 2.9 L (3.4-5.0) g/dL Globulin 3.2 (2.3-3.5) g/dL Albumin/Globulin Ratio 0.9 L (1.2-2.2) Med Orders - Current: Current Medications Benzocaine/Menthol (Cepacol Sore Throat) 1 lozenge MUCMEM 6XDAY PRN PRN Reason: throat pain Last Admin: 08/18/17 17:50 Dose: 1 lozenge Fentanyl (Duragesic) 12 mcg TRDERM Q72H [facility] Last Admin: 08/20/17 10:01 Dose: 12 mcg Hydromorphone HCl (Dilaudid Paper Tester 15 Mg In Ns 30 Ml) 0 mg IV ASDIRECTED PRN; Protocol PRN Reason: Pain Last Admin: 08/19/17 06:08 Dose: 15 mg Hydroxyzine HCl (Vistaril) 100 mg IM Q4H PRN PRN Reason: pain Last Admin: 08/19/17 04:55 Dose: 100 mg Cefoxitin Sodium 2 gm/ Sodium (Chloride) 50 mls @ 100 mls/hr IV Q6H [facility] Stop: 08/20/17 12:29 Last Admin: 08/20/17 05:53 Dose: 100 mls/hr Potassium Cl/Dextrose/Lact Ringer's (D5 Lr With 20 Meq Kcl) 1,000 mls @ 75 mls/ hr IV ASDIRECTED NATHALIE Metoclopramide HCl (Reglan) 10 mg IVPUSH Q6H [facility] Last Admin: 08/20/17 05:53 Dose: 10 mg Naloxone HCl (Narcan) 0.4 mg IV ASDIRECTED PRN PRN Reason: RESPIRATORY RATE LESS THAN 12 Verify Fentanyl (Patch) 0 each TOP BID [facility] Pantoprazole Sodium (Protonix Iv) 40 mg IVPUSH Q12H [facility] Last Admin: 08/20/17 05:53 Dose: 40 mg Discontinued Medications Acetaminophen (Tylenol) 650 mg PO Q4H PRN PRN Reason: Pain (Mild 1-3)/fever Last Admin: 08/17/17 13:59 Dose: 650 mg Al Hydroxide/Mg Hydroxide (Mag-Al Plus) 30 ml PO ONETIME ONE Stop: 08/17/17 09:58 Last Admin: 08/17/17 10:01 Dose: 30 ml Ropivacaine 45 ml/Dexamethasone 8 mg/Epinephrine HCl 0.4 mg/ Sodium Chloride 32.6 ml 0 ml NERVRT ONETIME ONE Stop: 08/18/17 11:01 Last Admin: 08/18/17 12:58 Dose: 2 syringe Dexamethasone (Dexamethasone) Confirm Administered Dose 4 mg .ROUTE .STK-MED ONE Stop: 08/18/17 10:28 Fentanyl (Sublimaze) 50 mcg IVPUSH ONETIME ONE Stop: 08/17/17 03:10 Last Admin: 08/17/17 03:26 Dose: 50 mcg Fentanyl (Sublimaze) 50 mcg IVPUSH ONETIME ONE Stop: 08/17/17 05:00 Last Admin: 08/17/17 05:09 Dose: 50 mcg Fentanyl (Sublimaze) Confirm Administered Dose 250 mcg .ROUTE .STK-MED ONE Stop: 08/18/17 10:05 Fentanyl (Sublimaze) Confirm Administered Dose 250 mcg .ROUTE .STK-MED ONE Stop: 08/18/17 12:35 Glycopyrrolate (Robinul) Confirm Administered Dose 1 mg .ROUTE .STK-MED ONE Stop: 08/18/17 10:28 Heparin Sodium (Porcine) (Heparin Lock Flush 100 Units/Ml) Confirm Administered Dose 500 units .ROUTE .STK-MED ONE Stop: 08/18/17 13:52 Last Admin: 08/18/17 15:00 Dose: 500 units Hydromorphone HCl (Dilaudid) 1 mg IVPUSH ONETIME ONE Stop: 08/17/17 06:29 Last Admin: 08/17/17 06:33 Dose: 1 mg Hydromorphone HCl (Dilaudid) 0.5 mg IVPUSH Q2H PRN PRN Reason: Pain Last Admin: 08/17/17 18:24 Dose: 0.5 mg Hydromorphone HCl (Dilaudid) 0.5 mg IVPUSH Q1H PRN PRN Reason: Pain Last Admin: 08/18/17 11:43 Dose: 0.5 mg Lactated Ringer's (Ringers, Lactated) 1,000 mls @ 500 mls/hr IV ASDIRECTED NATHALIE Last Admin: 08/17/17 03:22 Dose: 500 mls/hr Sodium Chloride (Normal Saline) 86 mls @ 3.5 mls/sec IV ASDIRECTED NATHALIE Last Admin: 08/17/17 04:10 Dose: 3.5 mls/sec Lactated Ringer's (Ringers, Lactated) 1,000 mls @ 999 mls/hr IV BOLUS ONE Stop: 08/17/17 06:42 Last Admin: 08/17/17 05:49 Dose: 999 mls/hr Lactated Ringer's (Ringers, Lactated) 1,000 mls @ 125 mls/hr IV ASDIRECTED NATHALIE Last Admin: 08/18/17 05:24 Dose: 125 mls/hr Cefoxitin Sodium 2 gm/ Sodium (Chloride) 50 mls @ 100 mls/hr IV ONETIME ONE Stop: 08/18/17 12:29 Last Admin: 08/18/17 12:13 Dose: 100 mls/hr Lidocaine HCl/Dextrose (Lidocaine 2 Gm/D5w 500 Ml) 2 gm in 500 mls @ 22.5 mls/ hr IV .[id number] NATHALIE PRN Reason: 1.5 MG/MIN Stop: 08/19/17 15:00 Last Admin: 08/19/17 09:11 Dose: 1.5 mg/min, 22.5 mls/hr Ketamine HCl 100 mg/ Sodium (Chloride) 100 mls @ 22.5 mls/hr IV ASDIRECTED NATHALIE PRN Reason: 5 MCG/KG/MIN Lactated Ringer's (Ringers, Lactated) Confirm Administered Dose 1,000 mls @ as directed .ROUTE .STK-MED ONE Stop: 08/18/17 10:54 Dextrose/Lactated Ringer's (Dextrose 5%-Lactated Ringers) 1,000 mls @ 175 mls/ hr IV ASDIRECTED NATHALIE Last Admin: 08/19/17 06:09 Dose: 175 mls/hr Dextrose/Lactated Ringer's (Dextrose 5%-Lactated Ringers) 1,000 mls @ 100 mls/ hr IV ASDIRECTED [facility] Last Admin: 08/20/17 02:43 Dose: 100 mls/hr Iopamidol (Isovue-300 (61%)) 141 ml IV . DIRECTED PRN PRN Reason: RADIOLOGY EXAM Stop: 08/18/17 03:55 Last Admin: 08/17/17 04:10 Dose: 141 ml Ketamine HCl (Ketalar) 35 mg IV ASDIRECTED [facility] Lidocaine HCl (Xylocaine 2%) 120 mg IVPUSH ONETIME ONE Stop: 08/18/17 10:01 Last Admin: 08/18/17 14:53 Dose: Not Given Meropenem (Merrem) Confirm Administered Dose 500 mg .ROUTE .STK-MED ONE Stop: 08/18/17 10:07 Last Admin: 08/18/17 14:50 Dose: 500 mg Neostigmine Methylsulfate (Neostigmine) Confirm Administered Dose 5 mg .ROUTE .STK-MED ONE Stop: 08/18/17 10:28 Ondansetron HCl (Zofran) 4 mg IVPUSH ONETIME ONE Stop: 08/17/17 03:10 Last Admin: 08/17/17 03:23 Dose: 4 mg Ondansetron HCl (Zofran) 4 mg IV Q4H PRN PRN Reason: Nausea/Vomiting Ondansetron HCl (Zofran) Confirm Administered Dose 4 mg .ROUTE .STK-MED ONE Stop: 08/18/17 10:28 Propofol (Diprivan 20 Ml) Confirm Administered Dose 200 mg .ROUTE .STK-MED ONE Stop: 08/18/17 10:28 Rocuronium [place] (Zemuron) Confirm Administered Dose 50 mg .ROUTE .STK-MED ONE Stop: 08/18/17 10:28 Sodium Chloride (Saline Flush) 10 ml FLUSH ASDIRECTED PRN PRN Reason: Keep Vein Open Last Admin: 08/17/17 05:13 Dose: 10 ml Sodium Chloride (Saline Flush) 10 ml FLUSH ONETIME ONE Stop: 08/17/17 03:55 Last Admin: 08/17/17 05:50 Dose: 10 ml Sodium Chloride (Saline Flush) 10 ml FLUSH ASDIRECTED PRN PRN Reason: Keep Vein Open Succinylcholine Chloride (Quelicin) Confirm Administered Dose 200 mg .ROUTE .STK -MED ONE Stop: 08/18/17 10:28 - Exam Quality Assessment: No: Supplemental Oxygen General: Alert, Oriented, Cooperative, No Acute Distress HEENT: Other (NG in place) Neck: Supple Lungs: Clear to Auscultation, Normal Respiratory Effort Cardiovascular: Regular Rate, Regular Rhythm GI/Abdominal Exam: Normal Bowel Sounds, No Distention Extremities: No Pedal Edema Skin: Warm, Dry Psy/Mental Status: Alert, Normal Affect - Problem List Review Problem List Initiated/Reviewed/Updated: Yes - My Orders Last 24 Hours: My Active Orders 08/20/17 11:00 Dextrose 5%-Lactated Ringers with KCl 20 mEq @ 75 mL/Hr (1000 mL) Dextrose 5%- Lact Ringers w/KCl [D5 LR with 20 mEq KCl] 1,000 ml IV ASDIRECTED - Plan Plan:: ASSESSMENT AND PLAN 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 Pain control better today. Vitals remained stable. Not passing gas. Minimal NG tube drainage. -Nothing by mouth -IV fluids for hydration, reduce rate to 75 mL per hour -Nasogastric tube to low intermittent suction -additional postoperative cares per surgical team MAINTENANCE ISSUES -DVT prophylaxis; SCUDs -GI prophylaxis; PPI -Damon catheter; not indicated -Nutrition; nothing by mouth DISPOSITION - anticipate discharge to home after the hospital stay. Mateus Stout M.D.
[2017-08-20] MEDS: Dextrose 5%-Lact Ringers w/KCl 1,000 ML IV SCH (15:28)
[2017-08-20] MEDS: VERIFY FENTANYL PATCH TOP SCH (21:41)
[2017-08-21] MEDS: Dextrose 5%-Lact Ringers w/KCl 1,000 ML IV SCH ×2 (04:42→17:36)
[2017-08-21] MEDS: Pantoprazole 40 MG Vial IVPUSH SCH ×2 (05:46→17:28)
[2017-08-21] MEDS: Metoclopramide 10 MG/2 ML SDV IVPUSH SCH ×4 (05:46→23:10)
--- NOTE | 2017-08-21 08:11 | PN ---
DATE OF SERVICE: 08/21/2017 SUBJECTIVE: Darshan has been on room air. NG has put out 325. He states he feels a little bit more bloated today. He did not sleep well last night, was up and down in his chair, has not passed gas yet. Vital signs have remained stable. After putting the fentanyl patch, he states he is much more comfortable. REVIEW OF SYSTEMS: Remainder of review of systems is negative for any pertinent positives and negatives. OBJECTIVE: GENERAL: Darshan Ascencio is a 77-year-old male. VITAL SIGNS: TPR is 98.2, 86, 18, blood pressure of 162/95. HEENT: Negative. NECK: Supple. HEART: Regular rate and rhythm. LUNGS: Clear. ABDOMEN: Slightly distended. Bowel sounds are heard. EXTREMITIES: Without peripheral edema. ASSESSMENT: 1. Insertion of left subclavian vein triple-lumen. 2. Exploratory laparotomy with lysis of extensive adhesions and takedown decompression of small bowel, repair of de-sterilization of small bowel, and enterotomy for the small bowel obstruction, limited peripheral access, small bowel obstruction associated with adhesions, and marked deserosalization of small bowel. Date of surgery 08/18/2017. PLAN: 1. Dulcolax suppository b.i.d. until BM. 2. Continue NG to low suction. 3. Call if the patient has any bowel movement. 4. We will evaluate p.r.n. or in the a.m. Sana Cid PA-C /[id number]
[2017-08-21] MEDS: VERIFY FENTANYL PATCH TOP SCH ×2 (08:54→20:10)
[2017-08-21] MEDS: Bisacodyl 10 MG Supp RECTAL SCH ×2 (08:55→20:06)
--- NOTE | 2017-08-21 14:24 | PCM.SN ---
- Free Text/Narrative Note: There have been no medical issues during the week. Followed by surgical team with mostly postop issues. Medicine team will sign off at this time. Please feel free to contact me if there are new problems. Mateus Stout M.D.
[2017-08-21] MEDS: HYDROmorphone/Normal Saline 15 MG/30 ML PCA IV PRN (16:00)
[2017-08-21] MEDS ORDERED: Melatonin 3 MG Tab PO PRN (19:58)
--- NOTE | 2017-08-21 22:24 | PCM.SN ---
- Free Text/Narrative Note: Time: 19:59 call from 2 [facility]; requesting Melatonin for sleep O: no other concerns A: sleep disruption P: Melatonin 9mg po at hs prn sleeplessness. continue present plan of care.
[2017-08-22] MEDS: Pantoprazole 40 MG Vial IVPUSH SCH ×2 (06:04→18:12)
[2017-08-22] MEDS: Metoclopramide 10 MG/2 ML SDV IVPUSH SCH ×3 (06:04→18:13)
[2017-08-22] MEDS: Dextrose 5%-Lact Ringers w/KCl 1,000 ML IV SCH ×2 (07:25→18:30)
--- NOTE | 2017-08-22 07:40 | PN ---
DATE OF SERVICE: 08/22/2017 SUBJECTIVE: The patient has had 4 BMs yesterday. They have been moderate size and soft. He is passing quite a bit of gas in between those stools. Continues on ice chips. Vital signs have been stable and his activity has been good. Pain has been well managed. He slept well with melatonin last night. REVIEW OF SYSTEMS: Remainder of review of systems negative for any pertinent positives and negatives. OBJECTIVE: GENERAL: Darshan Ascencio is a 77-year-old male. He is alert and orientated. Color pale. VITAL SIGNS: TPR 99.1, 83, 16, blood pressure 151/97. HEENT: Negative. NECK: Supple. HEART: Regular rate and rhythm. LUNGS: Clear. ABDOMEN: Dressings are dry and intact. Abdominal binder is on. EXTREMITIES: Without peripheral edema. ASSESSMENT: 1. Insertion of left subclavian vein triple-lumen. 2. Exploratory laparotomy with lysis of extensive adhesions and takedown, decompression of small bowel, repair of deserosalization of the small bowel and enterotomy for the small bowel obstruction, limited peripheral access, small bowel obstruction associated with adhesions and marked deserosalization of small bowel. DATE OF SURGERY: 08/18/2017. PLAN: 1. Clear liquid diet to start sparingly. 2. Dietary supplements q.i.d. 3. Dietary consult in regard to questions that Darshan has with the protein supplements and which ones do not cause some constipation, and he will be going home on a full-liquid diet. 4. Discontinue NG at 1400 if tolerating breakfast and lunch. 5. We will evaluate p.r.n. or in a.m. 6. Plan for tomorrow to discontinue PHOTOVOLTAIC PANEL INST[employer]ER and change to oral pain medication. Advanced to a full-liquid diet, and if he tolerates that well, plan to discharge on Friday or Friday08/24/2017. Sana Cid PA-C /[id number]
[2017-08-22] MEDS: Bisacodyl 10 MG Supp RECTAL SCH ×4 (09:42→20:37)
[2017-08-22] MEDS: VERIFY FENTANYL PATCH TOP SCH ×2 (09:43→20:37)
--- NOTE | 2017-08-22 16:19 | OR ---
DATE OF PROCEDURE: 08/18/2017 PREOPERATIVE DIAGNOSES: 1. Limited peripheral venous access. 2. Small bowel obstruction associated with florid adhesions and marked distention of proximal small bowel. POSTOPERATIVE DIAGNOSES: 1. Limited peripheral venous access. 2. Small bowel obstruction associated with florid adhesions, resulting in a focal area of deserosalization during small bowel dissection. 3. Marked distention of the small bowel. OPERATIVE PROCEDURE: 1. Insertion of left subclavian vein triple-lumen catheter (18149). 2. Exploratory laparotomy with lysis of extensive adhesions and: a. Enterotomy for tube decompression of small bowel (53736). b. Repair of area of deserosalization of small bowel (16222). c. Enteroenterostomy for bypass of area of a small bowel obstruction (77863). ANESTHESIA: General. ASSISTANTS: Sana Cid PA-C and VALORIE Ford. INDICATIONS FOR PROCEDURE: This is a 77-year-old presenting with a small bowel obstruction and after preoperative evaluation and discussion, plan is to proceed with an exploratory laparotomy with release of small bowel obstruction with possible bowel resection as indicated. Potential risks including bleeding, infection, leaks from various GI tract closures, problems with bowel obstruction over time recurring as well as possibility of cardiopulmonary, septic, or hemorrhagic complications leading to were discussed, and the patient wishes to proceed. DETAILS OF PROCEDURE: The patient was taken to the operating room, placed in the supine position. After general endotracheal anesthesia was induced, the upper chest and neck areas were prepped and draped. The left subclavian vein was then cannulated. A guidewire was passed and over the guidewire, a triple-lumen catheter was positioned. Good in and outflow was noted. The ports were flushed with heparinized saline. The catheter was sutured to the skin with some 3-0 silk stitch. Dressing was applied. Subsequent chest x-ray showed good catheter position with no evident complications. At this point, a Damon catheter had been inserted and the abdomen was prepped and draped. A nasogastric tube was already in place. The lower midline incision was then made and this was eventually extended from the pubis to somewhat above the umbilicus, carried down through the skin and subcutaneous tissue and into the peritoneal cavity. Extremely florid adhesions which were both extensive as well as quite edematous were encountered and requiring an extensive lysis of adhesions. At one point, there was very significant deserosalization, but not overt enterotomy within the portion of the distended small bowel. This was closed off with a transversely oriented aguila load DEEP staple line and then reinforced with a 3-0 Vicryl seromuscular stitch over the staple line, subsequently fibrin sealant. The point of obstruction could not be safely dissected free as this was densely adherent to the right lower pelvis, more or less at the pelvic inlet and did not appear to be safe to further dissect without having a large spill resulting from an enterotomy at that level. In the point somewhat proximal to that, a small enterotomy was then made and a [place] sump tube bypassed and a large volume of the fluid and old fluid was evacuated, not all of this could be evacuated as there was quite a bit in the way of fecalization of the small bowel contents in the area close to the point of obstruction. This area was then closed off with a aguila load DEEP staple line as well, similarly reinforced with some 3-0 Vicryl stitch at the seromuscular level. The point of small bowel which was decompressed beyond the obstruction was then freed up and brought up such that it would lie against the small bowel somewhat proximal to the point of obstruction and a [id number] enteroenterostomy was accomplished with internal firing of the DEEP aguila load, opening was then closed transversely with the purple load, and the angles were reinforced with some 3-0 Vicryl stitch. This was also then reinforced with fibrin sealant and at that point, the abdomen was irrigated with antibiotic-containing saline solution. The midline fascia was then approximated with #2 Vicryl stitch. The subcutaneous tissue was drained with a 10-Ukrainian round Lucien-Herrera drain. The skin closed with andrew. Dressing was applied. The patient was taken to recovery room in satisfactory condition. After induction of the anesthetic, 1 additional procedure was undertaken that being a transversus abdominis plane block, was placed in such a way it centered over the lower and mid abdomen and then under continuous ultrasound guidance, injecting the standard solution bilaterally. The patient was taken to the recovery room in satisfactory condition. Physician assistant store manager operations, Sana Cid played an essential role in assisting in this case, helping to position the patient, retract structures as needed, as well as suturing and cutting sutures when indicated. Her presence improved patient safety and decreased the operative time. João Guido MD /[id number]
[2017-08-23] MEDS: Metoclopramide 10 MG/2 ML SDV IVPUSH SCH ×4 (00:12→18:15)
[2017-08-23] MEDS: Pantoprazole 40 MG Vial IVPUSH SCH (06:25)
[2017-08-23] MEDS: HYDROmorphone 2 MG Tab PO PRN ×2 (08:12→14:48)
[2017-08-23] MEDS: Bisacodyl 10 MG Supp RECTAL SCH ×3 (08:13→21:03)
[2017-08-23] MEDS: fentaNYL 12 MCG/HR Transdermal Patch TRDERM SCH (09:34)
[2017-08-23] MEDS: VERIFY FENTANYL PATCH TOP SCH ×2 (09:36→21:04)
[2017-08-23] MEDS: hydrOXYzine HCl 100 MG/2 ML SDV IM PRN (11:20)
[2017-08-23] MEDS: Pantoprazole 40 MG Tab.CR PO SCH (18:15)
[2017-08-24] MEDS: Metoclopramide 10 MG/2 ML SDV IVPUSH SCH ×2 (00:24→06:42)
[2017-08-24 07:30] VITALS: BP 156/89
[2017-08-24] MEDS: Pantoprazole 40 MG Tab.CR PO SCH (07:58)
[2017-08-24] MEDS: HYDROmorphone 2 MG Tab PO PRN (07:58)
[2017-08-24] MEDS: Bisacodyl 10 MG Supp RECTAL SCH (08:00)
[2017-08-24] MEDS: VERIFY FENTANYL PATCH TOP SCH (08:01)
--- NOTE | 2017-08-25 11:32 | PN ---
DATE OF SERVICE: 08/23/2017 SUBJECTIVE: Darshan is tolerating a clear liquid diet, oral intake 970, and he has had 50% of breakfast and lunch and 75% of dinner. Vital signs have been stable. NG was removed at noon. He has been up ambulating. Remains to have the Dulcolax rectal suppositories, and he had one BM, moderate-sized, yesterday, which was soft. The suppositories he states allowed him to pass copious amounts of flatus. REVIEW OF SYSTEMS: Remainder of review of systems negative for any pertinent positives or negatives. OBJECTIVE: GENERAL: Darshan Ascencio is a 77-year-old male. He is alert and orientated. VITAL SIGNS: TPR last checked at 0300, pulse 67, respirations 16, blood pressure 165/88. HEENT: Negative. NECK: Supple. HEART: Regular rate and rhythm. LUNGS: Clear. ABDOMEN: Soft, nondistended. Dressings dry and intact. He has 1 midline THOMAS drain that put out 7 mL in the past 24 hours. EXTREMITIES: SCDs. No peripheral edema. ASSESSMENT: 1. Insertion of left subclavian vein triple-lumen catheter. 2. Exploratory laparotomy with lysis of extensive adhesions. a. Enterotomy for tube decompression of small bowel. b. Repair of area of deserosalization of small bowel. c. Enteroenterostomy for bypass of area of the small-bowel obstruction for limited venous access. Small bowel obstruction associated with florid adhesions, resulting in focal area of deserosalization during small bowel dissection, and marked distention of the small bowel. DATE OF PROCEDURE: 08/18/2017. SURGEON: João Guido MD PLAN: 1. Discontinue VEGETABLE I FARMWORKER. 2. Discontinue continuous pulse ox. 3. Dilaudid 2 mg 1 to 2 every 4 hours p.r.n. pain. 4. Full liquid diet. Continue protein supplements. 5. Saline lock IV. 6. Teach the patient to strip, empty, measure, and record THOMAS drain. 7. We will evaluate p.r.n. or in a.m. 8. Plan discharge in a.m. Sana Cid PA-C /[id number]
--- NOTE | 2017-08-25 11:47 | DISCH ---
ADMISSION DIAGNOSES: Partial small bowel obstruction, history of colon cancer, and impaired fasting glucose. DISCHARGE DIAGNOSES: 1. Insertion of left subclavian vein triple-lumen catheter. 2. Exploratory laparotomy with: a. Lysis of extensive adhesions and enterotomy for tube decompression of small bowel. b. Repair of area of deserosalization of small bowel. c. Enterenterostomy for bypass of area of a small bowel obstruction for limited peripheral access, small bowel obstruction associated with florid adhesions resulting in focal area of deserosalization during small bowel dissection and marked distention of the small bowel. DATE OF SURGERY: 08/18/2017. SURGEON: João Guido MD. HISTORY: Darshan Ascencio is a 77-year-old male presenting with a small bowel obstruction. After preoperative evaluation and discussion of possible risks and possible complications, he wished to proceed with surgical procedure. HOSPITAL COURSE: Darshan had his surgery on 08/18/2017. He had no operative complications. On postop day 1, NG remained to be on low suction. Damon catheter was discontinued and he was started on a MEDICAL MANAGEMENT TRAINER for pain management. On postop day 2, fentanyl 12 mcg patch was put on due to increased amount of pain. He was up ambulating. Had not started passing any flatus yet. On postop day 3, he was started on Dulcolax suppositories. Continued on ice chips and postop day 4, he was started on clear liquid diet. Bowel movements started yesterday and given protein supplements in between. On postop day 5, MEDICAL MANAGEMENT TRAINER was discontinued and continuous pulse ox. He was advanced to a full liquid diet and tolerated that well. Pain was well managed with oral Dilaudid and fentanyl patch. He was able to be discharged to home on postop day 6, 08/24/2017. He did run a low-grade temp of 100.9 and 100.6, but per nursing staff, did not use his IS for a few hours. OBJECTIVE: GENERAL: Darshan Ascencio is a 77-year-old male. VITAL SIGNS: Height is 5 feet 10.87 inches. Weight is 202 pounds. TPR 100.6, pulse 98, respirations 16, and blood pressure 172/91. HEENT: Negative. NECK: Supple. HEART: Regular rate and rhythm. LUNGS: Clear. ABDOMEN: Occlusive dressing was removed. [place] intact. He has one midline THOMAS drain, which has been draining 1 mL over the past 24 hours. Abdominal binder has been on. EXTREMITIES: Without peripheral edema. DISPOSITION: Discharged to home. CONDITION: Stable and improving. FOLLOWUP: Followup appointment with Sana Cid PA-C on 09/01/2017 at 10:00 a.m.. MEDICATIONS: New prescriptions: 1. Dulcolax 10 mg suppositories b.i.d. p.r.n. 2. Fentanyl Duragesic patch 12 mcg transdermal every 72 hours, one patch was given and is to change his current patch on 08/26/2017. 3. Dilaudid 2 mg, 1 to 2 every 4 hours p.r.n. pain, #40. 4. Melatonin 9 mg at bedtime p.r.n. sleep. 5. He is to resume his home medications of aspirin 81 mg p.o. daily. 6. Triamcinolone acetonide 0.5% ointment p.r.n. to the affected area. DIET: After discharge, full liquid diet, gradually advance to soft foods. ACTIVITY: As tolerated. No lifting greater than 10 pounds for [address] weeks[address]riving, do not drive while on narcotic pain medication. DISCHARGE INSTRUCTIONS: Notify provider if any fever, increased pain, swelling, redness, drainage, nausea, or vomiting. Keep site clean and dry. Wear abdominal binder for 6 weeks and then as tolerated; strip, empty, measure, and record THOMAS drain 4 times a day. Special instruction, use incentive spirometer 10 times every hour while awake for 1-week.
== END 2017-08-24 11:44 | disposition home or self-care (01) | DRG 331 ==
LOC: JP.ED 01:39 → JP.2SS 11:56 → JP.MS 08-23 14:47
PROVIDERS: ADMIT Hospitalist; ATTEND Internal Medicine
PROC: 0D190Z9 Bypass Duodenum to Duodenum, Open Approach (ICD-10-PCS; principal; 2017-08-18)
PROC: 0DN80ZZ Release Small Intestine, Open Approach (ICD-10-PCS; 2017-08-18)
PROC: 0D980ZZ Drainage of Small Intestine, Open Approach (ICD-10-PCS; 2017-08-18)
PROC: 0DNW0ZZ Release Peritoneum, Open Approach (ICD-10-PCS; 2017-08-18)
PROC: 0DQ80ZZ Repair Small Intestine, Open Approach (ICD-10-PCS; 2017-08-18)
PROC: 0DB80ZX Excision of Small Intestine, Open Approach, Diagnostic (ICD-10-PCS; 2017-08-18)
PROC: 05H633Z Insertion of Infusion Device into Left Subclavian Vein, Percutaneous Approach (ICD-10-PCS; 2017-08-18)
PROC: 3E0T3BZ Introduction of Anesthetic Agent into Peripheral Nerves and Plexi, Percutaneous Approach (ICD-10-PCS; 2017-08-18)
DX: K56.609 Unspecified intestinal obstruction, unspecified as to partial versus complete obstruction (principal); R10.9 Unspecified abdominal pain; R11.0 Nausea; K56.600 Partial intestinal obstruction, unspecified as to cause; Z87.891 Personal history of nicotine dependence; Z85.038 Personal history of other malignant neoplasm of large intestine; Z90.49 Acquired absence of other specified parts of digestive tract; Z87.11 Personal history of peptic ulcer disease; H54.7 Unspecified visual loss; H91.90 Unspecified hearing loss, unspecified ear; Z88.1 Allergy status to other antibiotic agents; Z79.82 Long term (current) use of aspirin; R73.01 Impaired fasting glucose
CPT/HCPCS: 36415; 74177; 80053; 81001; 83605; 83690; 84484; 85025; 96361; 96374; 96375; 99284; 99285; A9270; J1170; J2405; J3010 ×2; J7030; J7050 ×4; J7120 ×2; 71045; 71045-26; 74021; 74021-26; 76998; 80048; 83735; 84100; 85027; 94762; 96376; C9113; J0171; J0330; J0694; J1100; J1642; J2001; J2185; J2704; J2710; J2765; J2795; J3410; J3480; J7042

== ENCOUNTER 2017-08-25 10:49 | Inpatient (IN) | payer MEDICARE ==
[2017-08-25] MEDS ORDERED: Lactated Ringers 1,000 ML IV SCH (11:15)
[2017-08-25] MEDS ORDERED: Acetaminophen 650 MG Supp RECTAL ONE (11:16)
[2017-08-25] MEDS ORDERED: Lidocaine 2% Jelly 10 ML Urojet MUCMEM ONE (11:16)
[2017-08-25] MEDS ORDERED: Piperacillin/Tazobactam 4.5 GM in Sodium Chloride 0.9% 100 ML IV STA (11:21)
--- NOTE | 2017-08-25 11:39 | EDM.PDOC ---
ED HPI GENERAL MEDICAL PROBLEM - General Chief Complaint: Gastrointestinal Problem Stated Complaint: infection IN SURGERY AREA Time Seen by Provider: 08/25/17 11:25 Source of Information: Reports: Patient, Old Records, RN History Limitations: Reports: No Limitations - History of Present Illness INITIAL COMMENTS - FREE TEXT/NARRATIVE: 77 yo male had surgery here last Friday by Dr. Fernando Guido for a small bowel obstruction this past Friday. He did well through the weekend and noticed this morning that he had stool coming from his surgical wound a low grade fever. He last ate cream of wheat about 0800h this morning. No vomiting. Onset: Today Onset Date: 08/25/17 Duration: Minutes:, Constant, Getting Worse Location: Reports: Abdomen Quality: Reports: Other (pain not severe) Severity: Mild Improves with: Reports: None Worsens with: Reports: Other (? time) Context: Reports: Other (SBO surgically repaired last Friday here at [facility]) Associated Symptoms: Reports: Fever/Chills Treatments CELL STRIPPER: Reports: Other (see below) (none) - Related Data Allergies Allergy/AdvReac Type Severity Reaction Status Date / Time erythromycin base Allergy Unknown Blisters Verified 08/17/17 01:53 [Erythromycin Base] Home Meds: Home Meds Aspirin [Floris Aspirin] 81 mg PO DAILY 02/17/14 [History] Triamcinolone Acetonide [Triamcinolone Acetonide 0.5% Oint] 15 gm TOP ASDIRECTED 08/17/17 [History] Bisacodyl [Dulcolax] 10 mg RECTAL BID supp 08/24/17 [Rx] HYDROmorphone [Dilaudid] 2 - 4 mg PO Q4H PRN #40 tablet 08/24/17 [Rx] Melatonin 9 mg PO BEDTIME PRN tablet 08/24/17 [Rx] Past Medical History HEENT History: Reports: Hard of Hearing, Impaired Vision Gastrointestinal History: Reports: Bowel Obstruction, Colon Polyp, Other (See Below) Other Gastrointestinal History: bowel obstruction extensive lysis of adhesions. Hematologic History: Reports: Blood Transfusion(s) Oncologic (Cancer) History: Reports: Colon - Infectious Disease History Infectious Disease History: Reports: Chicken Pox - Past Surgical History GI Surgical History: Reports: Colon, Colonoscopy, Lysis of Adhesions, Small Bowel, Other (See Below) Other GI Surgeries/Procedures: ruptured ulcer in small intestine Social & Family History - Family History Family Medical History: Noncontributory Cardiac: Reports: None - Tobacco Use Smoking Status *Q: Never Smoker Years of Tobacco use: 15 Packs/Tins Daily: 0.5 Used Tobacco, but Quit: No Month/Year Tobacco Last Used: 40 yrs ago Second Hand Smoke Exposure: No - Caffeine Use Caffeine Use: Reports: None Caffeine Use Comment: 2-3 cups/day - Alcohol Use Days Per Week of Alcohol Use: 5 Number of Drinks Per Day: 2 Total Drinks Per Week: 10 - Recreational Drug Use Recreational Drug Use: No ED ROS GENERAL - Review of Systems Review Of Systems: See Below Constitutional: Reports: Fever, Chills HEENT: Reports: No Symptoms Respiratory: Reports: No Symptoms Cardiovascular: Reports: No Symptoms GI/Abdominal: Reports: Abdominal Pain, Other (stool coming from surgical wound) : Reports: No Symptoms Musculoskeletal: Reports: No Symptoms Skin: Reports: Wound (surgical to abdomen) Neurological: Reports: No Symptoms ED EXAM, GI/ABD - Physical Exam Exam: See Below Exam Limited By: No Limitations General Appearance: Alert, WD/WN, No Apparent Distress Eyes: Bilateral: Normal Appearance Ears: Normal External Exam, Normal Canal, Hearing Grossly Normal Nose: Normal Inspection, Normal Mucosa, No Blood Throat/Mouth: Normal Inspection, Normal Lips, Normal Oropharynx, Normal Voice, No Airway Compromise Head: Atraumatic, Normocephalic Neck: Normal Inspection Respiratory/Chest: No Respiratory Distress, Lungs Clear, Normal Breath Sounds, No Accessory Muscle Use Cardiovascular: Regular Rate, Rhythm, No Edema, Tachycardia GI/Abdominal Exam: Normal Bowel Sounds, No Distention, Other (fecal material from surgical abd wound.) Extremities: Normal Inspection, Normal Range of Motion, Non-Tender, No Pedal Edema Neurological: Alert, Oriented, CN II-XII Intact, Normal Cognition, No Motor/ Sensory Deficits Psychiatric: Normal Affect, Normal Mood Skin Exam: Warm, Dry, Intact, Normal Color, No Rash Lymphatic: No Adenopathy Course - Vital Signs Text/Narrative:: Dr. Facundo Guido called @ 5227h. Last Recorded V/S: Last Vital Signs Temp 39.2 C H 08/25/17 11:13 Pulse 125 H 08/25/17 11:13 Resp 18 08/25/17 11:13 BP 172/89 H 03/19/18 11:13 Pulse Ox 90 L 08/25/17 11:13 - Orders/Labs/Meds Orders: Active Orders 24 hr Category Date Time Status Damon Catheter Insertion [Insert Urinary Catheter] [OM. Care 08/25/17 11:30 Ordered PC] Q24H Urinary Catheter Assessment [RC] ASDIRECTED Care 08/25/17 11:19 Active CULTURE BLOOD [BC] Stat Lab 08/25/17 11:22 Received CULTURE BLOOD [BC] Stat Lab 08/25/17 11:30 Received Lactated Ringers [Ringers, Lactated] 1,000 ml Med 08/25/17 11:15 Active IV BOLUS Piperacillin/Tazobactam/Dext [Zosyn in Dextrose Iso- Med 08/25/17 11:40 Active Osmotic] 4.5 gm Premix Bag 1 bag IV ONETIME Medication Orders Lactated Ringer's (Ringers, Lactated) 1,000 mls @ 1,000 mls/hr IV BOLUS NATHALIE Last Admin: 08/25/17 11:24 Dose: 1,000 mls/hr Piperacillin/Tazobactam/ (Dextrose 4.5 gm/ Premix) 100 mls @ 200 mls/hr IV ONETIME ONE Stop: 08/25/17 12:09 Last Admin: 08/25/17 11:51 Dose: 200 mls/hr Labs: Laboratory Tests 08/25/17 08/25/17 08/25/17 Range/Units 11:26 11:26 11:26 WBC 5.9 (4.5-11.0) K/uL RBC 4.22 L (4.30-5.90) M/uL Hgb 13.1 (12.0-15.0) g/dL Hct 38.4 L (40.0-54.0) % MCV 91 (80-98) fL MCH 31 (27-31) pg MCHC 34 (32-36) % Plt Count 369 (150-400) K/uL Sodium 131 L (140-148) mmol/L Potassium 3.7 (3.6-5.2) mmol/L Chloride 93 L (100-108) mmol/L Carbon Dioxide 24 (21-32) mmol/L Anion Gap 17.7 H (5.0-14.0) mmol/L BUN 14 D (7-18) mg/dL Creatinine 1.1 (0.8-1.3) mg/dL Est Cr Clr Drug Dosing 59.90 mL/min Estimated GFR (MDRD) > 60 (>60) Glucose 154 H (74-106) mg/dL Lactic Acid 2.4 H (0.4-2.0) mmol/L Calcium 8.3 L (8.5-10.1) mg/dL Meds: Medications Generic Name Dose Route Start Last Admin Trade Name Freq PRN Reason Stop Dose Admin Lactated Ringer's 1,000 mls @ 1,000 mls/hr 08/25/17 11:15 08/25/17 11:24 Ringers, Lactated IV 1,000 mls/hr BOLUS NATHALIE Administration Piperacillin/Tazobactam/ 100 mls @ 200 mls/hr 08/25/17 11:40 08/25/17 11:51 Dextrose 4.5 gm/ Premix IV 08/25/17 12:09 200 mls/hr ONETIME ONE Administration Discontinued Medications Generic Name Dose Route Start Last Admin Trade Name Freq PRN Reason Stop Dose Admin Acetaminophen 650 mg 08/25/17 11:16 08/25/17 11:30 Tylenol RECTAL 08/25/17 11:17 650 mg NOW ONE Administration Piperacillin Sod/Tazobactam 100 mls @ 200 mls/hr 08/25/17 11:21 Sod 4.5 gm/ Sodium Chloride IV 08/25/17 11:50 NOW STA Lidocaine HCl 10 ml 08/25/17 11:16 08/25/17 11:30 Xylocaine 2% Jelly MUCMEM 08/25/17 11:17 10 ml ONETIME ONE Administration Departure - Departure Time of Disposition: 12:00 Disposition: Admitted As Inpatient 66 Condition: Poor Clinical Impression: Sepsis Qualifiers: Sepsis type: sepsis due to unspecified organism Qualified Code(s): A41.9 - Sepsis, unspecified organism Surgical wound breakdown Qualifiers: Encounter type: initial encounter Qualified Code(s): T81.31XA - Disruption of external operation (surgical) wound, not elsewhere classified, initial encounter - Discharge Information Referrals: PCP,None [Primary Care Provider] - Forms: ED Department Discharge - My Orders Last 24 Hours: My Active Orders 08/25/17 11:15 Lactated Ringers [Ringers, Lactated] 1,000 ml IV BOLUS 08/25/17 11:19 Urinary Catheter Assessment [RC] ASDIRECTED 08/25/17 11:22 CULTURE BLOOD [BC] Stat 08/25/17 11:30 Damon Catheter Insertion [Insert Urinary Catheter] [OM.PC] Q24H CULTURE BLOOD [BC] Stat 08/25/17 11:40 Piperacillin/Tazobactam/Dext [Zosyn in Dextrose Iso-Osmotic] 4.5 gm Premix Bag 1 bag IV ONETIME - Assessment/Plan Last 24 Hours: My Active Orders 08/25/17 11:15 Lactated Ringers [Ringers, Lactated] 1,000 ml IV BOLUS 08/25/17 11:19 Urinary Catheter Assessment [RC] ASDIRECTED 08/25/17 11:22 CULTURE BLOOD [BC] Stat 08/25/17 11:30 Damon Catheter Insertion [Insert Urinary Catheter] [OM.PC] Q24H CULTURE BLOOD [BC] Stat 08/25/17 11:40 Piperacillin/Tazobactam/Dext [Zosyn in Dextrose Iso-Osmotic] 4.5 gm Premix Bag 1 bag IV ONETIME
[2017-08-25] MEDS ORDERED: Piperacillin/Tazobactam/Dext 4.5 GM in Premix Bag 1 BAG IV ONE (11:40)
[2017-08-25] MEDS ORDERED: Morphine PF 150 MG/30 ML PCA Syringe IV PRN (12:19)
[2017-08-25] MEDS ORDERED: Naloxone 0.4 MG/ML SDV IV PRN (12:19)
[2017-08-25] MEDS ORDERED: Sodium Chloride 0.9% 1,000 ML IV SCH (12:45)
[2017-08-25] MEDS ORDERED: Meropenem 500 MG in Sodium Chloride 0.9% 50 ML IV ONE (13:00)
[2017-08-25] MEDS ORDERED: Rocuronium 50 MG/5 ML Vial ONE (13:17)
[2017-08-25] MEDS ORDERED: Glycopyrrolate 0.2 MG/ML 5 ML MDV ONE (13:17)
[2017-08-25] MEDS ORDERED: Succinylcholine 200 MG/10 ML MDV ONE (13:17)
[2017-08-25] MEDS ORDERED: Dexamethasone 4 MG/ML SDV ONE (13:17)
[2017-08-25] MEDS ORDERED: Ondansetron 4 MG/2 ML SDV ONE (13:17)
[2017-08-25] MEDS ORDERED: Neostigmine Methylsulfate 1 MG/ML 5 ML Syringe ONE (13:17)
[2017-08-25] MEDS ORDERED: fentaNYL 250 MCG/5 ML SDV ONE (13:17)
[2017-08-25] MEDS ORDERED: Propofol 200 MG/20 ML SDV ONE (13:17)
[2017-08-25] MEDS ORDERED: Phenylephrine 1% 10 MG/ML SDV ONE (14:05)
[2017-08-25] MEDS: Meropenem 500 MG SDV ONE ×2 (14:17→14:36)
[2017-08-25] MEDS ORDERED: Lactated Ringers 1,000 ML ONE (14:24)
[2017-08-25] MEDS ORDERED: Meropenem 500 MG SDV ONE (14:35)
[2017-08-25] MEDS ORDERED: hydrOXYzine HCl 100 MG/2 ML SDV IM PRN (16:31)
[2017-08-25] MEDS: Pantoprazole 40 MG Vial IV SCH (17:24)
[2017-08-25] MEDS: Aztreonam/Dextrose-Water 1 GM in Premix Bag 1 BAG IV SCH (17:59)
[2017-08-25] MEDS ORDERED: Meropenem 500 MG in Sodium Chloride 0.9% 50 ML IV SCH (18:00)
[2017-08-25] MEDS: Dextrose 5%-Lactated Ringers 1,000 ML IV SCH (20:28)
[2017-08-25] MEDS: Meropenem 500 MG in Sodium Chloride 0.9% 50 ML IV SCH (20:28)
[2017-08-26] MEDS: Aztreonam/Dextrose-Water 1 GM in Premix Bag 1 BAG IV SCH ×3 (01:10→16:49)
[2017-08-26] MEDS: Meropenem 500 MG in Sodium Chloride 0.9% 50 ML IV SCH ×4 (01:53→20:41)
[2017-08-26] MEDS: Dextrose 5%-Lactated Ringers 1,000 ML IV SCH ×3 (04:35→22:30)
[2017-08-26] MEDS ORDERED: diphenhydrAMINE 50 MG/ML SDV IVPUSH PRN (13:49)
[2017-08-26] MEDS: Pantoprazole 40 MG Vial IV SCH (17:48)
[2017-08-27] MEDS: Aztreonam/Dextrose-Water 1 GM in Premix Bag 1 BAG IV SCH ×3 (01:28→18:09)
[2017-08-27] MEDS: Meropenem 500 MG in Sodium Chloride 0.9% 50 ML IV SCH ×4 (02:13→23:53)
[2017-08-27] MEDS: Dextrose 5%-Lactated Ringers 1,000 ML IV SCH (09:49)
[2017-08-27] MEDS: Potassium Phosphates 20 MMOLE, Lidocaine 1% 2 ML in Sodium Chloride 0.9% 150 ML IV SCH ×3 (10:26→19:42)
[2017-08-27] MEDS ORDERED: Rocuronium 50 MG/5 ML Vial ONE (17:38)
[2017-08-27] MEDS: Pantoprazole 40 MG Vial IV SCH (18:09)
[2017-08-28] MEDS: Aztreonam/Dextrose-Water 1 GM in Premix Bag 1 BAG IV SCH (00:45)
[2017-08-28] MEDS: Meropenem 500 MG in Sodium Chloride 0.9% 50 ML IV SCH (01:33)
[2017-08-28] MEDS: Dextrose 5%-Lactated Ringers 1,000 ML IV SCH ×2 (03:23→14:07)
[2017-08-28] MEDS: Ampicillin/Sulbactam Na 3 GM in Sodium Chloride 0.9% 100 ML IV SCH ×3 (08:49→20:47)
--- NOTE | 2017-08-28 09:11 | PN ---
DATE OF SERVICE: 08/25/2017 SUBJECTIVE: Darshan's wound culture grew out E. coli, Enterococcus faecium and viridans Streptococcus. He reports his pain is controlled. Dressing is being changed as needed. It has some brown drainage. REVIEW OF SYSTEMS: Remainder of review of systems negative for any pertinent positives and negatives. OBJECTIVE: GENERAL: Darshan Ascencio is a 77-year-old male. He is alert, orientated, color pale. VITAL SIGNS: TPR 97.8, 71, 18, blood pressure is 163/79. HEENT: Negative. NECK: Supple. HEART: Regular rate and rhythm. LUNGS: Clear. ABDOMEN: Dressing was changed by nursing staff while in the room. Incision open packed with 4x4s, brown drainage noted. THOMAS drains are intact and draining 30, 10, 50 mL of a light aguila drainage. EXTREMITIES: Without peripheral edema. 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 Date of surgery 08/25/2017. PLAN: Schedule and have consent signed for placement of Low catheter and intraoperative wound exploration and dressing change under IV sedation Friday08/29/2017, João Guido MD, n.p.o. after midnight. Discontinue current antibiotics and start Unasyn 3 g q.6 hours IV. Good pulmonary toilet. We will evaluate p.r.n. or in a.m. Sana Cid PA-C /[id number]
--- NOTE | 2017-08-28 09:40 | PN ---
DATE OF SERVICE: 08/27/2017 The patient has been afebrile with stable vital signs. No major problems are noted. THOMAS output has decreased but, as expected, continues to be consistent with some small bowel content. The plan will be to continue with the present antibiotics and more or less n.p.o. status, except for meds. Will get a Low catheter in probably Friday, after some of sepsis is allowed to subside, and begin some TPN. He is having very low output from the drains at this point. We might consider at some point providing a little oral intake to see if that increases the fistula output. Otherwise, maximize activity and work with pulmonary toilet. If he needs to be transferred today, he could probably be moved upstairs, but otherwise he will remain in ICU. João Guido MD /[id number]
--- NOTE | 2017-08-28 12:07 | PN ---
DATE OF SERVICE: 08/26/2017 The patient has been afebrile with stable vital signs since surgical intervention yesterday. The drains have some light brown in them, as expected, as do the fistula drains. Urine output has been satisfactory. We will leave the IV running a little bit higher. I think we will leave the Damon catheter in for today to watch urine output. NG output has been negligible, and we will get that out today, and I will recheck some labs in the morning. Probably, on , we will get a central line in to begin some TPN. João Guido MD /[id number]
[2017-08-28] MEDS: Pantoprazole 40 MG Vial IV SCH (17:47)
[2017-08-29] MEDS: Ampicillin/Sulbactam Na 3 GM in Sodium Chloride 0.9% 100 ML IV SCH ×4 (02:39→21:40)
[2017-08-29] MEDS ORDERED: Bupivacaine 0.5% 50 ML MDV ONE (08:17)
[2017-08-29] MEDS ORDERED: Lidocaine 1% with EPINEPHrine 1:100,000 50 ML MDV ONE (08:17)
--- NOTE | 2017-08-29 09:02 | PN ---
DATE OF SERVICE: 08/29/2017 SUBJECTIVE: Darshan is n.p.o. He will be having a Low catheter placed for TPN and wound exploration today under IV and local sedation. He has no questions or concerns. OBJECTIVE: GENERAL: Darshan is a 77-year-old male, alert and oriented. VITAL SIGNS: TPR 96.6, 72, 18. Blood pressure 154/80. HEENT: Negative. NECK: Supple. HEART: Regular rate and rhythm. LUNGS: Clear. ABDOMEN: Dressings dry and intact. Continues to drain some light brown drainage. THOMAS drains are intact and continue to drain the same type of light aguila drainage. EXTREMITIES: Without peripheral edema. 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 Date of surgery, 08/25/2017. PLAN: Orders to be written postoperatively. Sana Cid PA-C /[id number]
[2017-08-29] MEDS: Dextrose 5%-Lactated Ringers 1,000 ML IV SCH ×2 (11:38→18:44)
[2017-08-29] MEDS ORDERED: Propofol 200 MG/20 ML SDV ONE ×2 (11:40→14:40)
[2017-08-29] MEDS ORDERED: fentaNYL 100 MCG/2 ML SDV ONE (11:41)
[2017-08-29] MEDS ORDERED: Ropivacaine 48 ML, Dexamethasone 8 MG, EPINEPHrine 0.4 MG, Sodium Chloride 0.9% 29.6 ML NERVRT ONE ×4 (13:00)
[2017-08-29] MEDS: Sodium Chloride 0.9% 10 ML Syringe FLUSH PRN ×2 (16:04→18:39)
[2017-08-29] MEDS: AA 5%/Calcium/D15W/Lytes 2,000 ML with MVI, Adult with Vitamin K 10 ML, Chromium/Copper... IV SCH ×3 (18:42)
[2017-08-29] MEDS: Pantoprazole 40 MG Vial IV SCH (19:54)
[2017-08-30] MEDS: Ampicillin/Sulbactam Na 3 GM in Sodium Chloride 0.9% 100 ML IV SCH ×4 (04:20→22:19)
[2017-08-30] MEDS: HYDROmorphone 2 MG Tab PO PRN ×3 (09:02→19:00)
[2017-08-30] MEDS: Pantoprazole 40 MG Vial IV SCH (17:50)
[2017-08-30] MEDS: AA 5%/Calcium/D15W/Lytes 2,000 ML with MVI, Adult with Vitamin K 10 ML, Chromium/Copper... IV SCH ×3 (17:51)
--- NOTE | 2017-08-30 18:15 | PN ---
DATE OF SERVICE: 08/30/2017 The patient has been afebrile with stable vital signs. He did develop once again some leaking from the lower aspect of the abdominal incision and appeared to have some dehiscence of fascia at that level. We will close that up tomorrow with IV sedation in the operating room. The patient is very comfortable with regard to the pain control at this point, this is related to the TAP block given yesterday. We will repeat the TAP block tomorrow as well. Otherwise, continue the present TPN. Labs appear to be correct in terms of phosphate and potassium. Otherwise, maximize activity and work with pulmonary toilet. We will go over oral pain medication today, which he will likely not need too much. João Guido MD /[id number]
[2017-08-31] MEDS: Ampicillin/Sulbactam Na 3 GM in Sodium Chloride 0.9% 100 ML IV SCH ×4 (04:16→21:48)
[2017-08-31] MEDS ORDERED: Bupivacaine 0.5% 50 ML MDV ONE (06:31)
[2017-08-31] MEDS ORDERED: Lidocaine 1% with EPINEPHrine 1:100,000 50 ML MDV ONE (06:31)
[2017-08-31] MEDS ORDERED: fentaNYL 100 MCG/2 ML SDV ONE (08:03)
[2017-08-31] MEDS ORDERED: Propofol 200 MG/20 ML SDV ONE ×2 (08:03→08:20)
[2017-08-31] MEDS ORDERED: Ropivacaine 48 ML, Dexamethasone 8 MG, EPINEPHrine 0.4 MG, Sodium Chloride 0.9% 29.6 ML NERVRT ONE ×4 (08:30)
[2017-08-31] MEDS: Dextrose 5%-Lactated Ringers 1,000 ML IV SCH (09:22)
[2017-08-31] MEDS: Acetaminophen 500 MG Tab PO PRN ×2 (11:37→23:08)
[2017-08-31] MEDS: Pantoprazole 40 MG Vial IV SCH (17:19)
[2017-08-31] MEDS: HYDROmorphone 2 MG Tab PO PRN (19:48)
[2017-08-31] MEDS: AA 5%/Calcium/D15W/Lytes 2,000 ML with MVI, Adult with Vitamin K 10 ML, Chromium/Copper... IV SCH ×3 (19:48)
[2017-09-01] MEDS: Ampicillin/Sulbactam Na 3 GM in Sodium Chloride 0.9% 100 ML IV SCH ×4 (03:30→22:41)
[2017-09-01] MEDS ORDERED: Central Total Parenteral Nutrition Bag SCH (07:15)
--- NOTE | 2017-09-01 09:25 | PN ---
DATE OF SERVICE: 09/01/2017 SUBJECTIVE: Darshan had a wound closure yesterday. He had a TAP block. Pain is controlled. Oral intake 960 mL. Damon has been removed. Urine output was 2675 mL. THOMAS drains have put out 70 mL, 70 mL, and 65 mL of a light brown drainage. Fistula drainage has put out 10 mL and 10 mL respectively of the same aguila-colored material. OBJECTIVE: GENERAL: Darshan is a 77-year-old male. He is alert and orientated. VITAL SIGNS: TPR 97.4, 65, 16; blood pressure 130/77. HEENT: Negative. NECK: Supple. HEART: Regular rate and rhythm. LUNGS: Clear. ABDOMEN: Dressing was changed, light aguila drainage is noted, soaked through the ABD, abdominal binder otherwise has been on. Dr. Guido examined wound. THOMAS drains and fistula drains intact as above. EXTREMITIES: Without peripheral edema. ASSESSMENT: 1. Abdominal bowel fistulas. 2. Wound closure and dressing change, 09/01/2015. 3. Low catheter and exploratory laparotomy with drainage of intraabdominal fluid collection, small bowel content and closure of small fistulas x2 on 08/25/2017. PLAN: 1. Schedule, have consent signed for wound/fistula closure, TAP block, 09/02/2017. IV sedation with the TAP block. João Guido MD. N.p.o. after midnight. 2. Full-liquid diet. 3. Decrease TPN to 60 mL per hour. 4. Good pulmonary toilet. 5. We will evaluate p.r.n. or in a.m. Sana Cid PA-C /[id number]
--- NOTE | 2017-09-01 09:28 | PN ---
DATE OF SERVICE: 08/31/2017 The patient has been afebrile with stable vital signs. He underwent closure of the additional area of focal fascial dehiscence today from any fistula-type drainage through the incision. Otherwise, the fistula drains are all intact and draining relatively small amounts. We will continue the TPN today, continue along with the present antibiotics, and offer some clear liquid diet. I think, over the next few days, we will try to see if having him take some oral intake increases the fistula output significant amount. If it does not, we may be able to get more in the way of oral intake, but otherwise, we will continue with the present TPN. Damon catheter will be coming out today as well. João Guido MD /[id number]
[2017-09-01] MEDS: HYDROmorphone 2 MG Tab PO PRN ×3 (09:48→21:34)
--- NOTE | 2017-09-01 10:10 | OR ---
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 OPERATIVE PROCEDURES: 1. Insertion of double-lumen Low catheter via left subclavian vein approach (51420). 2. Closure of focal fascial dehiscence (55104). ANESTHESIA: Local plus IV sedation. INDICATION FOR PROCEDURE: This is a 77-year-old presenting with a small bowel fistula earlier this week. After initial control of this, he is to undergo a double-lumen Low catheter insertion to facilitate management including TPN while the small bowel fistula is allowed to heal. The patient also has, in addition to the area drained around the fistula sites, a focal fascial dehiscence with leakage of some small bowel content through the lower aspect of his midline incision. The plan is to proceed with repair of that focal fascial dehiscence concurrently. Potential risks of the procedure were reviewed, and the patient wishes to proceed. DETAILS OF PROCEDURE: The patient was taken to the operating room and placed in a supine position. After IV sedation was administered, the upper chest and neck areas were prepped and draped, and anesthetized with 1% lidocaine mixed with Marcaine. The patient was noted to have a small reddened area on the left side. So initially, we opted to attempt the right subclavian approach. After that area was anesthetized with 1% lidocaine, the right subclavian vein was cannulated several times and each time the wire came down to what appeared to be somewhere in the area of the innominate superior vena cava junction or perhaps the jugular and subclavian junction and could not be manipulated beyond that. We then switched over to the left side. Initially, the puncture on that side, after being anesthetized, appeared to lodge in the same area. Following this, a more lateral approach resulted in the wire being able to be manipulated into the superior vena cava. The patient had previously had longstanding Low catheter in place, and I suspect he probably has some areas of thrombosis or stricturing of the central venous structures at this time. Some additional local was then injected and a stab wound made roughly a handsbreadth below the original puncture site on the left subclavian region, and a Low catheter was then tunneled between those two points. The catheter was cut such that the tip would lie in the area of the upper right atrium. Introducer and peel-away catheter were then placed over the wire and through this, Low catheter placed without difficulty. Good in and outflow was noted through the catheter, and the ports were flushed with heparinized saline once again. The skin access site in the left chest was then attached to the catheter with a 3-0 nylon stitch, and the skin puncture site with 4-0 Vicryl subcuticular stitch and a dressing applied. Attention was then taken to the abdominal area. The dressing was taken down. The patient had a roughly 4-mm fascial defect, through which there was some small bowel content coming. This was then closed with fascial suture of figure-of- eight of #1 Vicryl stitch. At that point, dressing was applied. No complications were noted. The patient was taken to the recovery room in a satisfactory condition. João Guido MD /[id number]
--- NOTE | 2017-09-01 11:06 | OR ---
DATE OF PROCEDURE: 08/25/2017 PREOPERATIVE DIAGNOSIS: Development of small bowel fistula. POSTOPERATIVE DIAGNOSIS: Development of small bowel fistula x2 with an intraabdominal abscess (the small bowel contents in the intraperitoneal location). PROCEDURE: Exploratory laparotomy with: 1. Drainage of intraabdominal fluid collection/abscess (94569). 2. Closure of small bowel fistula x2 (03707). ANESTHESIA: General. BRUSH STAINER: Sana Cid PA-C. INDICATION FOR PROCEDURE: This is a 77-year-old, recently status post complex bowel resection and closure for small bowel obstruction in a highly hostile abdomen. He had done well and was discharged home yesterday, presenting now with development of some drainage of small bowel contents via the abdominal incision. Plan is to proceed with an exploratory laparotomy with resection and/or drainage of the areas of leakage, as well as drainage of any intraabdominal abscess or fluid collection. Potential risks of the procedure, including further bleeding, infection, likelihood that today's procedure will not be definitive but more of a temporizing procedure providing drainage of the area, were all reviewed, along with the possibility of cardiopulmonary, septic, or hemorrhagic complications leading to , and the patient and wished to proceed. DETAILS OF PROCEDURE: The patient was taken to the operating room and placed in a supine position. After general endotracheal anesthesia was induced, a Damon catheter was inserted and the abdomen prepped and draped. The previous midline andrew were then removed, and the patient was noted to have some green material coming from the point of incision just below the umbilicus. The length of the incision was then opened, and exploration revealed the area of small bowel accumulation within the peritoneal cavity, i.e. abscess or inflammatory fluid collection, which was confined to the central abdomen. Fortunately, the degree of adhesion formation in the early postoperative period had contained that. On inspection, there was initially one obvious small bowel fistula, but after irrigation, another area became evident as well. After drainage of this area, the fistulas were both cannulated then with 15 round Lucien- Herrera drains, brought through stab wounds immediately through the abdominal wall overlying the point of the fistulas. Fortunately, these fistulas were in areas which would be up against the abdominal wall. The fistula closure over the drains, which had brought through the abdominal wall overlying the fistula, were then closed with thick pursestring sutures of 3-0 Vicryl stitch and the drains affixed at the skin level with 3-0 Vicryl stitch as well. Three additional 10 flat Lucien-Herrera drains were placed to provide general drainage in that area, and at that point, the midline fascia was approximated with a #2 Vicryl stitch. The skin and subcutaneous tissue were obviously left open and the procedure then concluded. The patient was taken to the recovery room in satisfactory condition. Physician civil engineering assistant, Sana Cid, played an essential role in assisting in this case, helping to position the patient, suturing and cutting sutures when indicated, as well as retracting structures when needed. Her presence improved patient safety and decreased the operative time. João Guido MD /[id number]
--- NOTE | 2017-09-01 13:22 | OR ---
DATE OF PROCEDURE: 08/31/2017 PREOPERATIVE DIAGNOSIS: Focal fascial dehiscence. POSTOPERATIVE DIAGNOSIS: Focal fascial dehiscence. OPERATIVE PROCEDURE: Closure of focal fascial dehiscence (30371). ANESTHESIA: IV sedation. INDICATION FOR PROCEDURE: The patient, in over the last day or so, opened up an additional area of focal fascial dehiscence in the lower aspect of his midline incision, which resulted in some drainage of a fistula-type material. The plan is to proceed with closure of that today along with a repeat transversus abdominis plane block. Potential risks including bleeding, infection, injury to underlying viscera, possible failure of the process to remain patent given the friability of this fascia, were all gone over and the patient wishes to proceed. DETAILS OF PROCEDURE: The patient was taken to the operating room and placed in a semi- sitting position. The abdominal dressings were partially taken down exposing the lateral abdominal thompson on each side. Using continuous ultrasound guidance, bilateral transversus abdominis plane blocks were placed, more or less centered across the central abdomen using the standard solutions. Following this, the operative dressing was taken down, and the wound prepped and draped. The lower third of the incision was then to be closed at the fascia level with a running #1 Vicryl stitch. This appeared to satisfactorily seal up the area. Prior to closure, it had been irrigated and all of the debris removed. Following completion of the closure, then the wound was packed with iodoform gauze. The patient was taken to the recovery room in a satisfactory condition. João Guido MD /[id number]
[2017-09-01] MEDS: Pantoprazole 40 MG Vial IV SCH (17:44)
[2017-09-01] MEDS: Acetaminophen 500 MG Tab PO PRN (21:35)
[2017-09-01] MEDS ORDERED: 1: AA 5%/Calcium/D15W/Lytes 1,000 ML with MVI, Adult with Vitamin K 10 ML, Chromium/Copp IV SCH ×3 (22:00)
[2017-09-02] MEDS: Ampicillin/Sulbactam Na 3 GM in Sodium Chloride 0.9% 100 ML IV SCH ×4 (04:30→22:00)
[2017-09-02] MEDS ORDERED: Meropenem 500 MG SDV ONE (06:38)
[2017-09-02] MEDS ORDERED: Lidocaine 1% with EPINEPHrine 1:100,000 50 ML MDV ONE (06:38)
[2017-09-02] MEDS ORDERED: Propofol 200 MG/20 ML SDV ONE (06:55)
[2017-09-02] MEDS ORDERED: fentaNYL 100 MCG/2 ML SDV ONE (06:56)
[2017-09-02] MEDS ORDERED: Ropivacaine 48 ML, Dexamethasone 8 MG, EPINEPHrine 0.4 MG, Sodium Chloride 0.9% 29.6 ML NERVRT ONE ×4 (07:30)
[2017-09-02] MEDS ORDERED: 1: AA 5%/Calcium/D15W/Lytes 1,000 ML with MVI, Adult with Vitamin K 10 ML, Chromium/Copp IV SCH ×3 (14:00)
[2017-09-02] MEDS: Dextrose 5%-Lactated Ringers 1,000 ML IV SCH (14:10)
[2017-09-02] MEDS: Pantoprazole 40 MG Vial IV SCH (17:27)
[2017-09-02] MEDS: Acetaminophen 500 MG Tab PO PRN (22:00)
[2017-09-02] MEDS: HYDROmorphone 2 MG Tab PO PRN (22:01)
[2017-09-03] MEDS: Ampicillin/Sulbactam Na 3 GM in Sodium Chloride 0.9% 100 ML IV SCH ×4 (04:52→21:53)
[2017-09-03] MEDS: HYDROmorphone 2 MG Tab PO PRN ×3 (06:53→21:57)
[2017-09-03] MEDS: Acetaminophen 500 MG Tab PO PRN (06:53)
[2017-09-03] MEDS ORDERED: Central Total Parenteral Nutrition Bag SCH (07:45)
--- NOTE | 2017-09-03 11:14 | PCM.SN ---
- Free Text/Narrative Note: Subjective: 77 yo M POD#1 s/p fistula closure following exploratory laparotomy of small bowel fistulas several days after lysis of adhesions and entero-entero anastamosis 2/2 mechanical small bowel obstruction. Pain well controlled with hydromorphone and tylenol PRN. Objective: Vitals: remains afebrile, slightly hypertensive (140s/80s), HR, RR, and O2sat WNL Lungs: clear to auscultation bilaterally Heart: regular rate and rhythm Abdomen: open midline vertical incision with minimal light aguila drainage noted; mild erythema with excoriation near edges of where dressings were, THOMAS drains secured THOMAS Drainage: 420mL Fistula drainage: 85mL (approx) Assessment/Plan: 1. Abdominal bowel fistulas with increased drainage overnight requiring 4 dressing changes; now with minimal output, Dr. Guido examined the wounds. -Increase TPN to 80mL/hour -Dressing changes as needed; use 1,2,3 paste for wound barrier -Change from full liquids to sips of full liquids 2. Surgical patient -good pulmonary toilet -ambulate as able -SCDs in place -continue pain management with tylenol and hydromorphone as needed -evaluate PRN or in AM Jolene Wiseman, MS3
[2017-09-03] MEDS: 1: AA 5%/Calcium/D15W/Lytes 1,000 ML with MVI, Adult with Vitamin K 10 ML, Chromium/Copp IV SCH ×3 (12:31)
[2017-09-03] MEDS: Pantoprazole 40 MG Vial IV SCH (17:27)
[2017-09-03] MEDS: Aluminum Sulf/Calcium Acetate 5 EACH, Water For Injection,Sterile 75 ML, Petrolatum,Whi... TOP PRN ×5 (21:54)
[2017-09-04] MEDS: 1: AA 5%/Calcium/D15W/Lytes 1,000 ML with MVI, Adult with Vitamin K 10 ML, Chromium/Copp IV SCH ×6 (01:05→13:46)
[2017-09-04] MEDS: Ampicillin/Sulbactam Na 3 GM in Sodium Chloride 0.9% 100 ML IV SCH (05:42)
[2017-09-04] MEDS ORDERED: Central Total Parenteral Nutrition Bag SCH (07:30)
[2017-09-04] MEDS: HYDROmorphone 2 MG Tab PO PRN (10:57)
--- NOTE | 2017-09-04 13:28 | PCM.SN ---
- Free Text/Narrative Note: Subjective: 77 yo M POD#1 s/p fistula closure following exploratory laparotomy of small bowel fistulas several days after lysis of adhesions and entero-entero anastamosis 2/2 mechanical small bowel obstruction. Pain well controlled with hydromorphone and tylenol PRN. Seems to have been some miscommunication in Darshan' s diet yesterday--he was supposed to be on TPN and receive minimal full liquids , but ended up consuming nearly 1L of full liquids by mouth. Despite this, he continues to have minimal drainage from his fistulas, which is promising. Today we encouraged him to decrease his liquid consumption so as to give his bowels a rest and suggested he will likely be here for several more days while he heals. Pt felt well enough today to get up to shower himself and walk around a bit. He still has not had a bowel movement. Objective: Vitals: continues to be afebrile, vitals WNL General: uncomfortable, but pleasant man in no acute distress Heart: regular rate and rhythm with no appreciable murmurs, no edema Lungs: clear to auscultation bilaterally Abdomen: wound w/ good granulation tissue forming, minimal greenish yellow fluid leaking from closure; right lower THOMAS incision seems to be a bit erythematous; bowel sounds present Ins/Outs: THOMAS net drainage 385 mL; fistula drainage 5mL; Net 4.3L Assessment/Plan: 1. Small bowel fistulas improved from yesterday with decreased drainage -continue changing dressings regularly and using 1,2,3 paste, even on the THOMAS sites -sips full liquids throughout day; TPN at 80mL/hr General: -continue pulmonary hygiene -continue ambulating as able -check labs tomorrow: CBC, CMP, Mg, Phos -Tylenol and hydromorphone as needed for pain
[2017-09-04] MEDS: Dextrose 5%-Lactated Ringers 1,000 ML IV SCH (14:18)
[2017-09-04] MEDS: Pantoprazole 40 MG Vial IV SCH (17:21)
[2017-09-04] MEDS: Acetaminophen 500 MG Tab PO PRN (21:16)
[2017-09-04] MEDS: Aluminum Sulf/Calcium Acetate 5 EACH, Water For Injection,Sterile 75 ML, Petrolatum,Whi... TOP PRN ×5 (22:39)
[2017-09-05] MEDS: HYDROmorphone 2 MG Tab PO PRN (00:39)
[2017-09-05] MEDS: 1: AA 5%/Calcium/D15W/Lytes 1,000 ML with MVI, Adult with Vitamin K 10 ML, Chromium/Copp IV SCH ×6 (01:44→14:11)
[2017-09-05] MEDS ORDERED: Central Total Parenteral Nutrition Bag SCH (07:45)
--- NOTE | 2017-09-05 10:54 | PCM.SN ---
- Free Text/Narrative Note: 77 yo M POD#2 s/p fistula closure following ex lap of small bowel fisutlas several days after lysis of adhesions and entero-entero anastamosis 2/2 SBO. Subjective: Darshan is feeling well this morning. He had a soft, normal bowel movement yesterday. He continues to go "slow, but full," by consuming small amounts of full liquids and his fistulas seem to be healing well, as he has had scant drainage and is requiring minimal dressing changes. Yesterday he was up and walking around quite a bit. He is understanding that for the next few days, he will continue to go "slow, but full" as we monitor drainage in hopes of resuming low residue diet soon. Objective: Vitals: continues to be afebrile, vitals WNL on room air General: pleasant man in no acute distress, well-groomed Heart: regular rate and rhythm with somewhat distant heart sounds, no appreciable murmurs, no edema Lungs: clear to auscultation bilateraly Abdomen: wound with good granulation tissue forming, minimal greenish yellow fluid leaking from closure Ins/Outs: -THOMAS net drainage 310 yellowish-brown fluid -Right fistula: 10mL -Left fistula: 20mL -Oral intake: 680mL -Net I/O: 670mL CBC, CMP, Mg, Phos all WNL Assessment: 1. Small bowel fistulas with decreased drainage, pt seems to be improving both symptomatically and from a more objective standpoint (THOMAS output, fistula output , etc) Plan: -change dressings as needed -full liquid diet, but moderate how much pt consumes -Tylenol and hydromorphone as needed for pain -continue pulmonary hygiene -continue ambulating as able, SCDs in place -Evaluate in AM or PRN
[2017-09-05] MEDS: Acetaminophen 500 MG Tab PO PRN ×2 (11:08→21:24)
[2017-09-05] MEDS: Pantoprazole 40 MG Vial IV SCH (17:06)
[2017-09-05] MEDS: Aluminum Sulf/Calcium Acetate 5 EACH, Water For Injection,Sterile 75 ML, Petrolatum,Whi... TOP PRN ×5 (19:33)
[2017-09-06] MEDS: 1: AA 5%/Calcium/D15W/Lytes 1,000 ML with MVI, Adult with Vitamin K 10 ML, Chromium/Copp IV SCH ×6 (02:40→15:25)
[2017-09-06] MEDS: Acetaminophen 500 MG Tab PO PRN ×3 (03:32→22:17)
[2017-09-06] MEDS: HYDROmorphone 2 MG Tab PO PRN ×3 (03:32→22:17)
[2017-09-06] MEDS: Dextrose 5%-Lactated Ringers 1,000 ML IV SCH (05:31)
[2017-09-06] MEDS ORDERED: Central Total Parenteral Nutrition Bag SCH (08:45)
--- NOTE | 2017-09-06 13:07 | PN ---
DATE OF SERVICE: 09/06/2017 SUBJECTIVE: Darshan has had his dressing changed twice. There has been no fistula drainage or stool drainage on the dressings. Oral intake was 920. His fistula #1 and fistula #2 have had 0 output. THOMAS drain #1, #2, and #3 have had 150, 105, and 65 respectively. States he feels good, afebrile. TPN is running at 80 mL/h. REVIEW OF SYSTEMS: Remainder of review of systems negative for any pertinent positives and negatives. OBJECTIVE: GENERAL: Darshan Ascencio is a 77-year-old male. He is sitting up in the chair, alert, orientated. VITAL SIGNS: TPR 96.2, 76, 16. Blood pressure 113/70. HEENT: Negative. NECK: Supple. HEART: Regular rate and rhythm. LUNGS: Clear. ABDOMEN: Dressings dry and intact. Abdominal binder is on. THOMAS drains and fistula intact as above. EXTREMITIES: Without peripheral edema. ASSESSMENT: 1. Abdominal fistulas. 2. Wound closure and dressing change, 08/31/2017. 3. Low catheter and exploratory laparotomy with drainage of intraabdominal fluid collection, small bowel content and closure of small fistulas x2, 08/25/2017. PLAN: 1. Continue same TPN rate and content. 2. Check CBC, CMP, mag and phos in the a.m. 3. Good pulmonary toilet. 4. We will evaluate p.r.n. or in the a.m. Sana Cid PA-C /[id number]
[2017-09-06] MEDS: Pantoprazole 40 MG Vial IV SCH (18:15)
[2017-09-07] MEDS: Acetaminophen 500 MG Tab PO PRN ×3 (03:46→22:32)
[2017-09-07] MEDS: 1: AA 5%/Calcium/D15W/Lytes 1,000 ML with MVI, Adult with Vitamin K 10 ML, Chromium/Copp IV SCH ×6 (04:30→16:38)
[2017-09-07] MEDS ORDERED: Central Total Parenteral Nutrition Bag SCH (08:15)
--- NOTE | 2017-09-07 11:21 | PN ---
DATE OF SERVICE: 09/07/2017 SUBJECTIVE: Darshan's dressings have been dry with the exception of a small amount of pinkish red drainage. His fistulas' output, number 1 has been 40 and number 2 has been 0. THOMAS drains have decreased to 55, 35, and 15 mL, same color and content. Pain has been controlled. He has been up ambulating. Oral intake 1560. He states his pain is controlled. Each day, he is feeling better. OBJECTIVE: GENERAL: Darshan Ascencio is a 77-year-old male. He is alert and orientated. VITAL SIGNS: TPR 97.2, 82, 16, blood pressure 108/70. HEENT: Negative. NECK: Supple. HEART: Regular rate and rhythm. LUNGS: Clear. ABDOMEN: Dressings dry and intact. Fistula bags examined as well as the THOMAS drains. They do have yellowish brown drainage in them. EXTREMITIES: Without peripheral edema. ASSESSMENT: 1. Abdominal fistulas. 2. Wound closure and dressing change, 09/01/2015. 3. Low catheter, exploratory laparotomy, and drainage of intraabdominal fluid collection, small bowel contents, and closure of small bowel fistulas x2, 08/25/2017. PLAN: Continue same TPN rate and content. Sana Cid PA-C /[id number]
[2017-09-07] MEDS: Dextrose 5%-Lactated Ringers 1,000 ML IV SCH (16:38)
[2017-09-07] MEDS: Pantoprazole 40 MG Tab.CR PO SCH (16:38)
[2017-09-07] MEDS: HYDROmorphone 2 MG Tab PO PRN (22:32)
[2017-09-08] MEDS: 1: AA 5%/Calcium/D15W/Lytes 1,000 ML with MVI, Adult with Vitamin K 10 ML, Chromium/Copp IV SCH ×6 (05:23→17:39)
[2017-09-08] MEDS ORDERED: Central Total Parenteral Nutrition Bag SCH (07:45)
--- NOTE | 2017-09-08 08:25 | PN ---
DATE OF SERVICE: 09/08/2017 SUBJECTIVE: Darshan has had an oral intake of 960. Dressings remain dry with the exception of pink drainage. THOMAS drains have put out 60, 40, and 85 respectively. Fistula drainage recorded as 25 mL and fistula #2 was zero and it remains to be a light brown, yellow fecal material. He reports pain is controlled. He has been up ambulating and has no other concerns or questions. OBJECTIVE: GENERAL: Darshan Ascencio is a pleasant 77-year-old male. VITAL SIGNS: TPR is 98.4, 76, 18, and blood pressure is 113/66. HEENT: Negative. NECK: Supple. HEART: Regular rate and rhythm. LUNGS: Clear. ABDOMEN: THOMAS drain and fistula bags, as above. EXTREMITIES: Without peripheral edema. ASSESSMENT: 1. Abdominal fistulas. 2. Wound closure and dressing change, 08/31/2017. 3. Low catheter, exploratory laparotomy and drainage of intraabdominal fluid collection, small bowel contents and closure of small bowel fistulas x2, date 08/25/2017. PLAN: 1. Continue same TPN rate and content. 2. Check CBC, CMP, mag, and phos in a.m. 3. Discharge planning consulted in regard to planning discharge either 09/09/2017, or 09/10/2017. 4. We will evaluate p.r.n. or in a.m. Sana Cid PA-C /[id number]
[2017-09-08] MEDS: Acetaminophen 500 MG Tab PO PRN (11:08)
[2017-09-08] MEDS: Aluminum Sulf/Calcium Acetate 5 EACH, Water For Injection,Sterile 75 ML, Petrolatum,Whi... TOP PRN ×5 (14:23)
[2017-09-08] MEDS: Pantoprazole 40 MG Tab.CR PO SCH (15:27)
[2017-09-09] MEDS: 1: AA 5%/Calcium/D15W/Lytes 1,000 ML with MVI, Adult with Vitamin K 10 ML, Chromium/Copp IV SCH ×3 (06:04)
[2017-09-09] MEDS: Dextrose 5%-Lactated Ringers 1,000 ML IV SCH (06:57)
[2017-09-09] MEDS: Pantoprazole 40 MG Tab.CR PO SCH (16:20)
[2017-09-09] MEDS: Acetaminophen 500 MG Tab PO PRN (19:38)
[2017-09-10] MEDS: HYDROmorphone 2 MG Tab PO PRN ×3 (03:52→22:19)
[2017-09-10] MEDS ORDERED: 1: AA 5%/Calcium/D15W/Lytes 1,000 ML with MVI, Adult with Vitamin K 10 ML, Chromium/Copp IV SCH ×3 (04:00)
[2017-09-10] MEDS ORDERED: Lidocaine 1% 20 ML MDV INJECT ONE (06:00)
[2017-09-10] MEDS ORDERED: Central Total Parenteral Nutrition Bag SCH (08:00)
--- NOTE | 2017-09-10 08:49 | PN ---
DATE OF SERVICE: 09/10/2017 SUBJECTIVE: Darshan pain has been controlled. His oral intake was 960. He was started on a low-fiber soft mechanical diet. TPN was decreased. He has been up and ambulating. Pain is controlled. OBJECTIVE: GENERAL: Darshan Ascencio is a 77-year-old male. He is alert and oriented. VITAL SIGNS: TPR 97.8, 74, 16, blood pressure 124/70. HEENT: Negative. NECK: Supple. HEART: Regular rate and rhythm. LUNGS: Clear. ABDOMEN: João Guido MD changed the dressings and examined the fistulas this morning. EXTREMITIES: Without peripheral edema. ASSESSMENT: 1. Abdominal fistulas. 2. Wound closure and dressing change, 08/31/2017. 3. Low catheter, exploratory laparotomy and drainage of intraabdominal collection, small bowel contents, closure of small bowel fistulas x2, date of surgery 08/25/2017. PLAN: 1. TPN is running at 40 mL per hour, discontinue when this bag is completely infused. 2. Keep accurate intake and output. 3. Plan discharge in a.m. 4. Consult discharge planning for home care. 5. Dietary consult will evaluate p.r.n. or in a.m. Sana Cid PA-C /[id number]
[2017-09-10] MEDS: Acetaminophen 500 MG Tab PO PRN (14:46)
[2017-09-10] MEDS: Pantoprazole 40 MG Tab.CR PO SCH (15:24)
--- NOTE | 2017-09-10 15:37 | OR ---
DATE OF PROCEDURE: 09/02/2017 PREOPERATIVE DIAGNOSIS: Focal fascial dehiscence. POSTOPERATIVE DIAGNOSIS: Focal fascial dehiscence. PROCEDURE: Closure of focal fascial dehiscence (25801). ANESTHESIA: Local plus IV sedation. INDICATION FOR PROCEDURE: The patient once again presents with a focal area of fistula drainage through the abdominal wall, where it had become focally dehisced. Plan is to proceed with suture of this. Potential risks including bleeding, infection, injury to underlying viscera, possible failure of the suture to maintain adequate closure were gone over, and the patient wishes to proceed. DETAILS OF PROCEDURE: The patient was taken to the operating room and placed in a supine position. IV sedation was administered, after which the abdominal dressing was taken down and the abdomen was prepped and draped. Using continuous ultrasound bilateral transversus abdominis plane blocks were placed affecting the upper and mid abdomen, and this was done with continuous ultrasound guidance, and with standard solution being injected. The abdomen was then further prepped and draped and the area of the focal dehiscence was then closed with 2 [id number] stitches of #1 Vicryl stitch. This appeared to give adequate close off the fascia in that area, which is at this point just above the level of the umbilicus. This wound was then packed open with iodoform gauze and dressing applied. The patient was taken to the recovery room in satisfactory condition. João Guido MD /[id number]
--- NOTE | 2017-09-10 18:10 | PN ---
DATE OF SERVICE: 09/09/2017 The patient has been afebrile with stable vital signs. His abdominal incision looks quite good, and he is not having any further fistula drainage from that area. Overall, he is feeling fairly good. He did have several 100 mL of full liquids in yesterday. I think this may be a fistula case, where we can feed the patient and will go up to a mechanical soft diet today and see how he does. We will re-suture the drains that are in the small bowel fistula itself, and he may be ready for discharge home in the next couple of days. If he is able to resume adequate oral intake without significant increase in the output from the fistulas, we may be able to send him home without IV hyperalimentation. João Guido MD /[id number]
[2017-09-10] MEDS: Dextrose 5%-Lactated Ringers 1,000 ML IV SCH (22:17)
[2017-09-11 07:26] VITALS: BP 128/75
--- NOTE | 2017-09-12 07:18 | DISCH ---
ADMISSION DIAGNOSES: 1. 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 2. Abdominal fistulas. 3. Closure of focal fascial dehiscence on 09/02/2017. 4. Exploratory laparotomy and drainage of fistula on 08/25/2017. 5. Closure of fascial dehiscence, TAP block, on 08/31/2017. 6. Fistula wound closure on 09/02/2017. HISTORY: Darshan Ascencio is a 77-year-old male presenting with small bowel fistula earlier this week. After preoperative evaluation and discussion of possible risks and possible complications, he wished to proceed with surgical procedures. He did have other closures as listed above. He tolerated all procedures well. PHYSICAL EXAMINATION: GENERAL: Darshan Ascencio is a 77-year-old male. VITAL SIGNS: Height is 5 feet 10 inches, weight is 186 pounds. TPR is 98.4, 76, 92. Blood pressure 128/75. HEENT: Negative. NECK: Supple. HEART: Regular rate and rhythm. LUNGS: Clear. ABDOMEN: Incision is open, it has been packed twice a day. He has 3 THOMAS drains and they the last 24 hours put out 2, 10, and 2 of a fecal-type material. Fistula drain is to a bag. He has 2 drains, #1 and #2; in the past 24 hours, #1 put out 40 and #2 put out 0. Dressings are dry and intact. THOMAS drains as above. Two fistula bags as above. EXTREMITIES: Without peripheral edema. DISPOSITION: Discharged to home. CONDITION: Stable and improving. FOLLOWUP PLAN: With João Guido M.D., at [facility] on 09/17/2017 at 8:30 a.m. HOME MEDICATIONS: 1. Tylenol Extra Strength 1000 mg every 6 hours p.r.n. pain. 2. Dilaudid 2 mg 1 to 2 every 4 hours p.r.n. pain, #40. 3. Domeboro powder, use as directed. 4. Vaseline, use as directed p.r.n. 5. Zinc oxide, use as directed. He is to resume taking his home medications; aspirin 81 mg daily, Dulcolax 10 mg rectal twice daily, melatonin 9 mg at bedtime, and triamcinolone cream 0.5% topical p.r.n. DISCHARGE INSTRUCTIONS: 1. Diet after discharge: GI, low-residue diet. 2. Activity: As tolerated. No lifting greater than 10 pounds for 6 weeks. 3. Driving after discharge: Do not drive while on narcotic pain medication. 4. Shower/Bathing: May shower. 5. Notify provider if any fever, increased pain, swelling, redness, drainage, nausea or vomiting. 6. Keep site clean and dry. 7. Wound incision care: Change dressings twice daily. Strip, empty, measure, and record each THOMAS drain and both fistula bags 4 times a day; bring the record of drainage to clinic appointments. Wear abdominal binder until incision is well healed. SPECIAL INSTRUCTIONS: 1. Use incentive spirometer 10 times every hour while awake for 1 week. 2. Low catheter dressing change, change once a week and heparin flush once a month. Both were done on 09/11/2017 before discharge.
== END 2017-09-11 11:25 | disposition home or self-care (01) | DRG 908 ==
LOC: JP.ED 10:49 → JP.SDS 13:38 → JP.ICU 15:50 → JP.2SS 08-27 15:22
PROVIDERS: ADMIT Surgery; ATTEND Surgery
PROC: 0W9G00Z Drainage of Peritoneal Cavity with Drainage Device, Open Approach (ICD-10-PCS; principal; 2017-08-25)
PROC: 0DQ80ZZ Repair Small Intestine, Open Approach (ICD-10-PCS; 2017-08-25)
PROC: 0D9800Z Drainage of Small Intestine with Drainage Device, Open Approach (ICD-10-PCS; 2017-08-25)
PROC: 0DQ80ZZ Repair Small Intestine, Open Approach (ICD-10-PCS; 2017-08-25)
PROC: 3E0G3GC Introduction of Other Therapeutic Substance into Upper GI, Percutaneous Approach (ICD-10-PCS; 2017-08-25)
PROC: 0JQ80ZZ Repair Abdomen Subcutaneous Tissue and Fascia, Open Approach (ICD-10-PCS; 2017-08-29)
PROC: 05JY0ZZ Inspection of Upper Vein, Open Approach (ICD-10-PCS; 2017-08-29)
PROC: 02H633Z Insertion of Infusion Device into Right Atrium, Percutaneous Approach (ICD-10-PCS; 2017-08-29)
PROC: 0JQ80ZZ Repair Abdomen Subcutaneous Tissue and Fascia, Open Approach (ICD-10-PCS; 2017-08-31)
PROC: 3E0T3BZ Introduction of Anesthetic Agent into Peripheral Nerves and Plexi, Percutaneous Approach (ICD-10-PCS; 2017-08-31)
PROC: 0JQ80ZZ Repair Abdomen Subcutaneous Tissue and Fascia, Open Approach (ICD-10-PCS; 2017-09-02)
PROC: 3E0T3BZ Introduction of Anesthetic Agent into Peripheral Nerves and Plexi, Percutaneous Approach (ICD-10-PCS; 2017-09-02)
DX: T81.31XA Disruption of external operation (surgical) wound, not elsewhere classified, initial encounter (principal); K63.2 Fistula of intestine; T81.4XXA Infection following a procedure, initial encounter; K63.0 Abscess of intestine; B96.20 Unspecified Escherichia coli [E. coli] as the cause of diseases classified elsewhere; B95.2 Enterococcus as the cause of diseases classified elsewhere; B95.4 Other streptococcus as the cause of diseases classified elsewhere; Z87.891 Personal history of nicotine dependence; Z85.038 Personal history of other malignant neoplasm of large intestine; H54.7 Unspecified visual loss; H91.90 Unspecified hearing loss, unspecified ear; Z88.1 Allergy status to other antibiotic agents; Z79.82 Long term (current) use of aspirin
CPT/HCPCS: 36415; 51702; 80048; 81001; 83605; 85027; 87040 ×2; 87070; 87075; 87077 ×4; 87186 ×3; 87205; 96361; 96365; 96367; 96375; 99285 ×2; A9270; J0330; J1100; J2185 ×3; J2270; J2370; J2405; J2543; J2704; J2710; J3010; J7040; J7050; J7120 ×2; 80053; 83735; 83880; 84100; 94762; 96372; C9113; J0171; J0295; J1200; J1642; J2795; J3490; J7030; J7042; P9047

== ENCOUNTER 2018-09-08 05:26 | Day surgery (SDC) | payer MEDICARE ==
[2018-09-08] MEDS ORDERED: Dextrose 5%-Lactated Ringers 1,000 ML IV SCH (06:00)
[2018-09-08] MEDS ORDERED: Propofol 200 MG/20 ML SDV ONE (07:14)
[2018-09-08] MEDS ORDERED: Midazolam 1 MG/ML 2 ML SDV ONE (07:14)
[2018-09-08] MEDS ORDERED: fentaNYL 100 MCG/2 ML SDV ONE (07:14)
[2018-09-08 08:43] VITALS: BP 144/89
--- NOTE | 2018-09-10 13:41 | OR ---
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 POSTOPERATIVE DIAGNOSIS: Normal followup colonoscopy. OPERATIVE PROCEDURE: Flexible colonoscopy. ANESTHESIA: IV sedation. INDICATIONS FOR PROCEDURE: This is a 78-year-old presenting for followup colonoscopy. 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 He has had no known recurrences. 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 The plan is to proceed with a followup colonoscopy with biopsies and/or polypectomy as indicated. Potential risks including bleeding and perforation were discussed and the patient wishes to proceed. DETAILS OF PROCEDURE: The patient was taken to the operating room, placed in a left lateral decubitus position. IV sedation was administered, after which the initial digital rectal exam was performed and was unremarkable. Colonoscope was then passed into the rectum with retroflexion revealing uncomplicated hemorrhoidal columns. The scope was then passed to the level of the ileocolic anastomosis. To that level, no abnormalities were noted. Specifically, there were no diverticula or areas of colitis, and no signs of recurrent neoplasia in terms of polyps or otherwise. The scope was then withdrawn, the above findings reconfirmed, procedure concluded. The patient was taken to the recovery room in satisfactory condition. This is a case that I think as long as the patient's health remains satisfactory, I will probably repeat the colonoscopy in 3 years given the likelihood of him being a Richardson syndrome patient. Jãoo Guido MD /[id number]
== END 2018-09-08 08:48 | disposition home or self-care (01) ==
LOC: JP.SDS 05:26
PROVIDERS: ATTEND Surgery
DX: Z12.11 Encounter for screening for malignant neoplasm of colon (principal); K64.9 Unspecified hemorrhoids; I10 Essential (primary) hypertension; E78.5 Hyperlipidemia, unspecified; Z85.038 Personal history of other malignant neoplasm of large intestine; Z84.81 Family history of carrier of genetic disease; Z90.49 Acquired absence of other specified parts of digestive tract
CPT/HCPCS: J2250; J2704; J3010; J7042

== ENCOUNTER 2020-07-31 00:33 | Inpatient (IN) | payer MEDICARE, OTHER ==
[2020-07-31] MEDS ORDERED: HYDROmorphone 0.5 MG/0.5 ML Syringe IVPUSH ONE ×2 (00:56→02:01)
[2020-07-31] MEDS ORDERED: Ondansetron 4 MG/2 ML SDV IVPUSH ONE (00:57)
--- NOTE | 2020-07-31 00:59 | EDM.PDOC ---
ED HPI GENERAL MEDICAL PROBLEM - General Chief Complaint: Abdominal Pain Stated Complaint: STOMACH PAIN Time Seen by Provider: 07/31/20 00:58 Source of Information: Reports: Patient, Family History Limitations: Reports: No Limitations - History of Present Illness INITIAL COMMENTS - FREE TEXT/NARRATIVE: pt started having severe abdomanal pain about 6 pm tonight. Onset: Today, Sudden Duration: Hour(s): Location: Reports: Abdomen Associated Symptoms: Reports: Loss of Appetite Abdomen Pain Score (Numeric/FACES): 8 - Related Data Allergies Allergy/AdvReac Type Severity Reaction Status Date / Time erythromycin base Allergy Unknown Blisters Verified 07/31/20 00:47 [Erythromycin Base] Home Meds: Home Meds Aspirin [Maxwell Aspirin] 81 mg PO DAILY 02/17/14 [History] Cyanocobalamin (Vitamin B-12) [B-12] 1 tab PO DAILY 07/31/20 [History] Past Medical History - Past Health History Medical/Surgical History: Denies Medical/Surgical History HEENT History: Reports: Hard of Hearing, Impaired Vision Gastrointestinal History: Reports: Bowel Obstruction, Colon Polyp, Other (See Below) Other Gastrointestinal History: bowel obstruction extensive lysis of adhesions. fistulas x 2 Hematologic History: Reports: Blood Transfusion(s) Oncologic (Cancer) History: Reports: Colon - Infectious Disease History Infectious Disease History: Reports: Chicken Pox, Mumps - Past Surgical History HEENT Surgical History: Reports: None GI Surgical History: Reports: Colon, Colonoscopy, Lysis of Adhesions, Small Bowel, Other (See Below) Other GI Surgeries/Procedures: ruptured ulcer in small intestine Social & Family History - Family History Family Medical History: No Pertinent Family History Cardiac: Reports: None - Tobacco Use Tobacco Use Status *Q: Never Tobacco User - Caffeine Use Caffeine Use: Reports: Coffee Caffeine Use Comment: 2-3 cups/day - Recreational Drug Use Recreational Drug Use: No ED ROS GENERAL - Review of Systems Review Of Systems: See Below Constitutional: Reports: No Symptoms HEENT: Reports: No Symptoms Respiratory: Reports: No Symptoms Cardiovascular: Reports: No Symptoms Endocrine: Reports: No Symptoms GI/Abdominal: Reports: Abdominal Pain, Other ( severe crampy pain.) : Reports: No Symptoms Musculoskeletal: Reports: No Symptoms Skin: Reports: No Symptoms ED EXAM, GI/ABD - Physical Exam Exam: See Below Text/Narrative:: pt arrived with severe crampy pain in the mid abdoman. This started suddenly about 6 pm. Exam Limited By: No Limitations General Appearance: Alert, Anxious, Moderate Distress Ears: Normal TMs Nose: Normal Inspection Throat/Mouth: Normal Inspection Head: Atraumatic Neck: Normal Inspection Respiratory/Chest: No Respiratory Distress Cardiovascular: Regular Rate, Rhythm GI/Abdominal Exam: Guarding, Tender, Other (pt just keeps saying his abdoman feels so tight. ) (Male) Exam: Deferred Rectal (Males) Exam: Deferred Back Exam: Normal Inspection Extremities: Normal Inspection Neurological: Alert, Oriented, Normal Cognition Psychiatric: Anxious Course - Vital Signs Last Recorded V/S: Last Vital Signs Temp 36.4 C 07/31/20 00:49 Pulse 88 07/31/20 02:24 Resp 18 07/31/20 00:49 BP 143/78 H 07/31/20 02:24 Pulse Ox 93 L 07/31/20 00:49 - Orders/Labs/Meds Orders: Active Orders 24 hr Category Date Time Status UA W/MICROSCOPIC [URIN] Urgent Lab 07/31/20 02:24 Ordered Sodium Chloride 0.9% [Normal Saline] 1,000 ml Med 07/31/20 01:00 Active IV ASDIRECTED Sodium Chloride 0.9% [Normal Saline] 1,000 ml Med 07/31/20 02:30 Active IV ASDIRECTED Medication Orders Sodium Chloride (Normal Saline) 1,000 mls @ 999 mls/hr IV ASDIRECTED NATHALIE Last Admin: 07/31/20 01:08 Dose: 999 mls/hr Documented by: LIN Sodium Chloride (Normal Saline) 1,000 mls @ 500 mls/hr IV ASDIRECTED NATHALIE Last Admin: 07/31/20 02:37 Dose: 500 mls/hr Documented by: LIN Labs: Laboratory Tests 07/31/20 07/31/20 07/31/20 Range/Units 01:05 01:05 01:05 WBC 7.3 (4.5-11.0) K/uL RBC 5.06 (4.30-5.90) M/uL Hgb 16.0 H D (12.0-15.0) g/dL Hct 48.2 (40.0-54.0) % MCV 95 (80-98) fL MCH 32 H (27-31) pg MCHC 33 (32-36) % Plt Count 253 (150-400) K/uL Neut % (Auto) 70 H (36-66) % Lymph % (Auto) 14 L (24-44) % [place] % (Auto) 10 H (2-6) % Eos % (Auto) 5 H (2-4) % Baso % (Auto) 1 (0-1) % Sodium 141 (140-148) mmol/L Potassium 4.0 (3.6-5.2) mmol/L Chloride 102 (100-108) mmol/L Carbon Dioxide 26 (21-32) mmol/L Anion Gap 12.8 (5.0-14.0) mmol/L BUN 17 (7-18) mg/dL Creatinine 1.1 (0.8-1.3) mg/dL Est Cr Clr Drug Dosing 55.30 mL/min Estimated GFR (MDRD) > 60 (>60) Glucose 117 H (74-106) mg/dL Lactic Acid (0.4-2.0) mmol/L Calcium 9.4 (8.5-10.1) mg/dL Total Bilirubin 0.6 (0.2-1.0) mg/dL AST 24 (15-37) U/L ALT 30 (12-78) U/L Alkaline Phosphatase 69 (46-116) U/L C-Reactive Protein 0.48 H (0.0-0.3) mg/dL Total Protein 7.6 (6.4-8.2) g/dL Albumin 4.1 (3.4-5.0) g/dL Globulin 3.5 (2.3-3.5) g/dL Albumin/Globulin Ratio 1.2 (1.2-2.2) 07/31/20 Range/Units 01:05 WBC (4.5-11.0) K/uL RBC (4.30-5.90) M/uL Hgb (12.0-15.0) g/dL Hct (40.0-54.0) % MCV (80-98) fL MCH (27-31) pg MCHC (32-36) % Plt Count (150-400) K/uL Neut % (Auto) (36-66) % Lymph % (Auto) (24-44) % [place] % (Auto) (2-6) % Eos % (Auto) (2-4) % Baso % (Auto) (0-1) % Sodium (140-148) mmol/L Potassium (3.6-5.2) mmol/L Chloride (100-108) mmol/L Carbon Dioxide (21-32) mmol/L Anion Gap (5.0-14.0) mmol/L BUN (7-18) mg/dL Creatinine (0.8-1.3) mg/dL Est Cr Clr Drug Dosing mL/min Estimated GFR (MDRD) (>60) Glucose (74-106) mg/dL Lactic Acid 1.3 (0.4-2.0) mmol/L Calcium (8.5-10.1) mg/dL Total Bilirubin (0.2-1.0) mg/dL AST (15-37) U/L ALT (12-78) U/L Alkaline Phosphatase (46-116) U/L C-Reactive Protein (0.0-0.3) mg/dL Total Protein (6.4-8.2) g/dL Albumin (3.4-5.0) g/dL Globulin (2.3-3.5) g/dL Albumin/Globulin Ratio (1.2-2.2) Meds: Medications Generic Name Dose Route Start Last Admin Trade Name Freq PRN Reason Stop Dose Admin Sodium Chloride 1,000 mls @ 999 mls/hr 07/31/20 01:00 07/31/20 01:08 Normal Saline IV 999 mls/hr ASDIRECTED NATHALIE Administration Sodium Chloride 1,000 mls @ 500 mls/hr 07/31/20 02:30 07/31/20 02:37 Normal Saline IV 500 mls/hr ASDIRECTED NATHALIE Administration Discontinued Medications Generic Name Dose Route Start Last Admin Trade Name Freq PRN Reason Stop Dose Admin Hydromorphone HCl 0.5 mg 07/31/20 00:56 07/31/20 01:08 Dilaudid IVPUSH 07/31/20 00:57 0.5 mg ONETIME ONE Administration Hydromorphone HCl 0.5 mg 07/31/20 02:01 07/31/20 02:05 Dilaudid IVPUSH 07/31/20 02:02 0.5 mg ONETIME ONE Administration Sodium Chloride 73 mls @ 4 mls/sec 07/31/20 01:56 07/31/20 02:10 Normal Saline IV 07/31/20 01:57 4 mls/sec ASDIRECTED STA Administration Iopamidol 143 ml 07/31/20 01:56 07/31/20 02:10 Isovue-300 (61%) IV 07/31/20 01:57 150 ml . DIRECTED STA Administration Ondansetron HCl 4 mg 07/31/20 00:57 07/31/20 01:08 Zofran IVPUSH 07/31/20 00:58 4 mg ONETIME ONE Administration - Re-Assessments/Exams Free Text/Narrative Re-Assessment/Exam: 07/31/20 02:58 cat scan reveals a small bowel obstruction. will admit to dr Guido. Departure - Departure Time of Disposition: 02:59 Disposition: Admitted As Inpatient 66 Condition: Fair Clinical Impression: Small bowel obstruction - Discharge Information Referrals: Frederic Calderon QC ANALYST [Primary Care Provider] - Forms: ED Department Discharge Care Plan Goals: admit to Dr Guido. Sepsis Event Note (ED) - Evaluation Sepsis Screening Result: No Definite Risk - Focused Exam Vital Signs: Vital Signs Temp Pulse Resp BP Pulse Ox 07/31/20 02:24 88 143/78 H 07/31/20 00:49 36.4 C 90 18 171/102 H 93 L - My Orders Last 24 Hours: My Active Orders 07/31/20 01:00 Sodium Chloride 0.9% [Normal Saline] 1,000 ml IV ASDIRECTED 07/31/20 02:24 UA W/MICROSCOPIC [URIN] Urgent 07/31/20 02:30 Sodium Chloride 0.9% [Normal Saline] 1,000 ml IV ASDIRECTED - Assessment/Plan Last 24 Hours: My Active Orders 07/31/20 01:00 Sodium Chloride 0.9% [Normal Saline] 1,000 ml IV ASDIRECTED 07/31/20 02:24 UA W/MICROSCOPIC [URIN] Urgent 07/31/20 02:30 Sodium Chloride 0.9% [Normal Saline] 1,000 ml IV ASDIRECTED
[2020-07-31] MEDS ORDERED: Sodium Chloride 0.9% 1,000 ML IV SCH ×2 (01:00→02:30)
[2020-07-31] MEDS ORDERED: Iopamidol 612 MG/ML 150 ML Bottle IV STA (01:56)
--- NOTE | 2020-07-31 02:42 | CRLCT ---
INDICATION: Abdominal pain TECHNIQUE: Axial images were obtained from the diaphragm to the pubic symphysis. Reformats were obtained in the coronal and sagittal plane. IV Contrast: 143 cc Isovue-300 Oral Contrast: None COMPARISON: Abdomen and pelvis CT 08/17/2017 FINDINGS: Lower chest: Bibasilar discoid atelectasis. Liver: Unremarkable. Normal in size and attenuation. No masses. Gallbladder and bile ducts: Slight layering density within the dependent portion of the gallbladder, possibly tiny gallstones (2, 42). Spleen: Unremarkable. Normal in size without mass. Pancreas: Pancreatic atrophy without discrete lesion. Adrenal glands: Unremarkable. No nodules. Kidneys: Unremarkable. No masses, stones, or hydronephrosis. Vasculature: Atherosclerosis without abdominal aortic aneurysm. GI tract: The stomach is decompressed. There are multiple dilated loops of small bowel with abrupt transition in the midline pelvis where there is some small bowel wall thickening. Distal to this small bowel is decompressed. Patient is status post subtotal colectomy. Pelvis: Fat containing right indirect inguinal hernia. Bones: Degenerative disc disease lumbar spine. IMPRESSION: 1. Dilated loops of small bowel consistent with a small-bowel obstruction with transition in the midline pelvis. Differential diagnosis for the etiology is adhesions or enteritis. 2. Other incidental findings as detailed above. Please note that all CT scans at this facility use dose modulation, iterative reconstruction, and/or weight-based dosing when appropriate to reduce radiation dose to as low as reasonably achievable. Dictated by Joe Calderón MD @ Jul 31 2020 2:35AM Signed by Dr. Joe Calderón @ Jul 31 2020 2:41AM
[2020-07-31] MEDS ORDERED: HYDROmorphone/Normal Saline 15 MG/30 ML PCA IV PRN (03:12)
[2020-07-31] MEDS ORDERED: Naloxone 0.4 MG/ML SDV IVPUSH PRN (03:12)
[2020-07-31] MEDS ORDERED: Ondansetron 4 MG/2 ML SDV IVPUSH PRN (03:12)
--- NOTE | 2020-07-31 08:48 | HP ---
HISTORY OF PRESENT ILLNESS: Darshan was admitted last evening. He developed severe abdominal pain in the middle periumbilical area around 6 p.m. He states that he had a normal day and had sudden onset of severe pain. He reported it as 8/10, associated with some nausea, bloating. Had no emesis. Describes the pain as crampy and radiates throughout his entire abdomen. No other associated signs and symptoms. He states the only thing that helped him last night was IV pain medication in the ER. PAST MEDICAL HISTORY: See EMR. PAST SURGICAL HISTORY: See EMR. SOCIAL HISTORY: See EMR. REVIEW OF SYSTEMS: CONSTITUTIONAL: Denies any fever, chills, night sweats. No headache, dizziness, loss of coordination. HEENT: Wears corrective lenses. RESPIRATORY: No shortness of breath or cough. CARDIOVASCULAR: No chest pain, shortness of breath. ENDOCRINE: Negative. GI: As above. : No UTI signs and symptoms. MUSCULOSKELETAL: No joint pain or swelling. SKIN: No rash. NEUROLOGIC: Denies any weakness in extremities or dizziness. PSYCHIATRIC: No insomnia, depression, or anxiety. PHYSICAL EXAMINATION: GENERAL: Darshan Ascencio is a pleasant 80-year-old male. VITAL SIGNS: Height 5 feet 10 inches, weight is 165 pounds, BMI is 23. TPR is 98, 93, 17, blood pressure 147/78. HEENT: Negative. NECK: Supple. HEART: Regular rate and rhythm. LUNGS: Clear. ABDOMEN: Slightly distended. NG in place. It is not putting out anything right now except ice chips that he is taking in. Slight distention. Nontender right now. EXTREMITIES: Without peripheral edema. NEUROLOGIC: Intact. PSYCHIATRIC: Mood and affect appropriate. ASSESSMENT: Partial small bowel obstruction. CT showed dilated loops of small bowel consistent with small bowel obstruction with transition in the midline pelvis. Differential diagnosis for adhesions or enteritis. PLAN: 1. Continue NG. 2. Increase [employer]LL[employer] INSPECTOR Dilaudid to 0.3 with lockout of 10 minutes. 3. Check abdominal flat and upright series x4 starting tomorrow at 0400. 4. Protonix 40 mg p.o. daily. 5. Check CBC, CMP, mag, and phos in a.m. 6. We will evaluate p.r.n. or in a.m. Sana Cid PA-C /[id number]
[2020-07-31] MEDS: Pantoprazole 40 MG Vial IV SCH (09:00)
[2020-07-31] MEDS: Sodium Chloride 0.9% 1,000 ML IV SCH ×2 (11:03→16:05)
[2020-08-01] MEDS: Sodium Chloride 0.9% 1,000 ML IV SCH ×2 (01:30→11:30)
[2020-08-01] MEDS: Pantoprazole 40 MG Vial IV SCH (08:00)
--- NOTE | 2020-08-01 08:07 | PN ---
DATE OF SERVICE: 08/01/2020 SUBJECTIVE: Darshan states he is feeling better. Abdomen is less painful and distended. He has active bowel sounds. Has not passed any flatus yet. NG is intact, put out 450 of mainly intake of ice chips. REVIEW OF SYSTEMS: Remainder of review of systems negative for any pertinent positives and negatives. OBJECTIVE: GENERAL: Darshan Ascencio is a pleasant 80-year-old male. He is alert and orientated. He does look like he is feeling better today. VITAL SIGNS: TPR 98.9, 79, 18, blood pressure 142/82. HEENT: Negative. NECK: Supple. HEART: Regular rate and rhythm. LUNGS: Clear. ABDOMEN: Soft, nontender. EXTREMITIES: Without peripheral edema. ASSESSMENT: Partial small bowel obstruction. PLAN: 1. Discontinue NG. 2. Check abdominal flat and upright x-ray in a.m. 3. Walk 6 times daily. 4. Dulcolax suppositories b.i.d. per rectum. 5. Print off all operative reports. 6. Check CBC, CMP, mag, and phos in a.m. 7. We will evaluate p.r.n. or in a.m. Sana Cid PA-C /[id number]
[2020-08-01] MEDS ORDERED: Benzocaine/Cetylpyridinium/Menthol Lozenge MUCMEM PRN (08:15)
[2020-08-01] MEDS: Bisacodyl 10 MG Supp RECTAL SCH ×2 (09:28→23:56)
--- NOTE | 2020-08-01 09:42 | CR ---
Abdomen 2V AP Flat Upright CLINICAL HISTORY: Partial SBO FINDINGS: NG tube is been placed in the fundus of the stomach There are scattered air-filled loops of small bowel in a nonspecific pattern. Small bowel distention has diminished since the CT of 07/31/2020. There is gas and he sees in the colon. IMPRESSION: There is some decrease in small bowel distention NG tube is in the fundus of the stomach
[2020-08-02] MEDS: Sodium Chloride 0.9% 1,000 ML IV SCH (07:29)
[2020-08-02] MEDS: Bisacodyl 10 MG Supp RECTAL SCH (08:07)
[2020-08-02] MEDS: Pantoprazole 40 MG Vial IV SCH (08:07)
[2020-08-02] MEDS: Potassium Phos in 0.9 % NaCl 15 MMOL in Premix Bag 1 BAG IV SCH ×8 (08:55→19:51)
--- NOTE | 2020-08-02 09:38 | CR ---
Abdomen 2V AP Flat Upright CLINICAL HISTORY: Partial SBO FINDINGS: There is some scattered air-filled loops of small bowel. There is some mild dilatation left abdomen. This is slightly greater than seen on previous study. No free air is identified. IMPRESSION: Mild gaseous small bowel distention increased slightly since prior study. NG tube has been removed
--- NOTE | 2020-08-02 10:11 | PN ---
DATE OF SERVICE: 08/02/2020 SUBJECTIVE: Darshan did have a bowel movement. His oral intake is adequate. Vital signs stable. Denies any pain. REVIEW OF SYSTEMS: Remainder of review of systems negative for any pertinent positives and negatives. OBJECTIVE: GENERAL: Darshan Ascencio is an 80-year-old male. He is alert and orientated. VITAL SIGNS: TPR 96, 77, 16, blood pressure 160/91. HEENT: Negative. NECK: Supple. HEART: Regular rate and rhythm. LUNGS: Clear. ABDOMEN: Soft, nontender. EXTREMITIES: Without peripheral edema. ASSESSMENT: Partial small bowel obstruction. PLAN: 1. Clear liquid diet. 2. K-Phos 60 millimoles IV today. 3. Check CBC, CMP, mag, phos in a.m. 4. We will evaluate p.r.n. or in a.m. Sana Cid PA-C /[id number]
[2020-08-03 05:22] VITALS: PULSE 68
[2020-08-03 07:24] VITALS: BP 140/83
[2020-08-03] MEDS: Pantoprazole 40 MG Vial IV SCH (08:43)
--- NOTE | 2020-08-03 09:17 | CR ---
Abdomen 2V AP Flat Upright CLINICAL HISTORY: Small bowel obstruction FINDINGS: Patient has had previous extensive abdominal surgery. There are scattered air-filled loops of small bowel. The dilatation has diminished since prior studies. IMPRESSION: Persistent scattered air-filled bowel loops without distention
--- NOTE | 2020-08-03 10:58 | DISCH ---
ADMISSION DIAGNOSES: Partial small bowel obstruction, colon cancer, and impaired fasting glucose. DISCHARGE DIAGNOSIS: Small bowel obstruction, resolved. HISTORY: Darshan Ascencio is an 80-year-old male, who presented to the emergency room on 07/31/2020 with sudden onset of severe mid periumbilical abdominal pain. An NG was placed. CT scan was obtained and he was given ice chips only, IV fluids. On 08/01/2020, the IV was discontinued because the abdominal flat and upright x-rays were improving. He was started on Dulcolax suppositories b.i.d. Lab work was watched closely and he tolerated the clear liquid diet well. On 08/02/2020, he was started on clear liquid diet, K-Phos was replaced, and he started having bowel movements. On 08/03/2020, he was able to be discharged to home after receiving dietary instructions, and he had no symptoms of any abdominal pain. REVIEW OF SYSTEMS: CONSTITUTIONAL: Denies any fever, chills, or night sweats. HEENT: Negative. NECK: Negative. CHEST: No chest pain, shortness of breath, fast or irregular heart beat. LUNGS: No cough. ABDOMEN: No abdominal pain, nausea, vomiting, diarrhea, or constipation. GENITOURINARY: Negative. EXTREMITIES: Negative for any joint pain or swelling. SKIN: Without rash. NEUROLOGIC: Denies any headache, dizziness, loss of coordination. PSYCHIATRIC: Negative for insomnia, depression or anxiety. Remainder of review of systems negative for any pertinent positives and negatives. OBJECTIVE: GENERAL: Darshan Ascencio is a pleasant 80-year-old male, alert and orientated. VITAL SIGNS: Height 5 feet 10 inches, weight is 165 pounds. TPR is 97.8, 68, 18, blood pressure 140/83. HEENT: Negative. NECK: Supple. HEART: Regular rate and rhythm. LUNGS: Clear. ABDOMEN: Soft, nontender. EXTREMITIES: Without peripheral edema. SKIN: Negative. NEUROLOGIC: Intact. PSYCHIATRIC: Mood and affect appropriate. DISPOSITION: Discharged to home. CONDITION: Stable and improving. FOLLOWUP: Appointment with Dr. João Guido on 08/09/2020 at 01:15 a.m. He is to resume all of his home medications. DIET: Full liquid diet until August 10, 2020, then low residue diet indefinitely. ACTIVITY: As tolerated. Shower/bathing: May shower. DISCHARGE INSTRUCTIONS: Notify provider if any fever, increased pain, nausea, or vomiting. /[id number]
== END 2020-08-03 09:26 | disposition home or self-care (01) | DRG 390 ==
LOC: JP.ED 00:33 → JP.2SS 03:06
PROVIDERS: ADMIT Surgery; ATTEND Surgery
DX: K56.609 Unspecified intestinal obstruction, unspecified as to partial versus complete obstruction (principal); K56.600 Partial intestinal obstruction, unspecified as to cause; H54.7 Unspecified visual loss; H91.90 Unspecified hearing loss, unspecified ear; Z88.1 Allergy status to other antibiotic agents; Z79.82 Long term (current) use of aspirin; Z79.899 Other long term (current) drug therapy; Z86.010 Personal history of colon polyps; Z85.038 Personal history of other malignant neoplasm of large intestine
CPT/HCPCS: 36415; 74177; 80053; 81001; 83605; 85025; 86140; J1170 ×2; J2405; J7030 ×2; Q9967; 74019; 74019-26; 82962; 83735; 84100; 85027; 94762; 99285; A9270-GY; C9113

== ENCOUNTER 2021-08-23 23:35 | Emergency (ER) | payer MEDICARE ==
[2021-08-23] MEDS ORDERED: Ondansetron 4 MG/2 ML SDV IVPUSH ONE (23:53)
[2021-08-23] MEDS ORDERED: Sodium Chloride 0.9% 10 ML Syringe FLUSH PRN (23:53)
[2021-08-24] MEDS ORDERED: Iopamidol 612 MG/ML 100 ML Bottle IV STA (00:37)
[2021-08-24] MEDS ORDERED: Sodium Chloride 0.9% 50 ML IV STA (00:37)
[2021-08-24] MEDS ORDERED: HYDROmorphone 0.5 MG/0.5 ML Syringe IVPUSH ONE (00:42)
[2021-08-24 02:17] VITALS: PULSE 89
[2021-08-24 02:37] VITALS: BP 167/98
== END 2021-08-24 02:59 ==
LOC: JP.ED 23:35
DX: K56.50 Intestinal adhesions [bands], unspecified as to partial versus complete obstruction (principal); Z88.1 Allergy status to other antibiotic agents; Z79.82 Long term (current) use of aspirin; Z85.038 Personal history of other malignant neoplasm of large intestine
CPT/HCPCS: 36415; 43752; 74018; 74018-26; 74177; 80053; 83605; 85025; 96374; 96375; 99285; 99285-25; J1170; J2405; Q9967

== ENCOUNTER 2021-10-05 06:34 | Day surgery (SDC) | payer MEDICARE ==
[2021-10-05] MEDS ORDERED: Propofol 200 MG/20 ML SDV ONE (07:30)
[2021-10-05] MEDS ORDERED: Sodium Chloride 0.9% 1,000 ML IV SCH (07:30)
[2021-10-05] MEDS ORDERED: fentaNYL 100 MCG/2 ML SDV ONE (07:30)
[2021-10-05] MEDS ORDERED: Midazolam 1 MG/ML 2 ML SDV ONE (07:30)
[2021-10-05 09:23] VITALS: BP 121/80; PULSE 79
== END 2021-10-05 09:30 | disposition home or self-care (01) ==
LOC: JP.SDS 06:34
PROVIDERS: ATTEND Family Medicine
DX: Z12.11 Encounter for screening for malignant neoplasm of colon (principal); I10 Essential (primary) hypertension; R73.01 Impaired fasting glucose; E78.5 Hyperlipidemia, unspecified; Z98.890 Other specified postprocedural states; Z88.8 Allergy status to other drugs, medicaments and biological substances; Z85.038 Personal history of other malignant neoplasm of large intestine; Z90.49 Acquired absence of other specified parts of digestive tract
CPT/HCPCS: J2250; J2704; J3010; J7030

== ENCOUNTER 2023-04-27 16:17 | Inpatient (IN) | payer MEDICARE ==
[2023-04-27] MEDS ORDERED: Sodium Chloride 0.9% 10 ML Syringe FLUSH PRN (16:45)
[2023-04-27] MEDS ORDERED: Sodium Chloride 0.9% 1,000 ML IV STA (16:45)
[2023-04-27] MEDS ORDERED: fentaNYL 100 MCG/2 ML SDV IVPUSH ONE ×2 (16:46→18:18)
[2023-04-27] MEDS ORDERED: Sodium Chloride 0.9% 50 ML IV ONE (16:53)
[2023-04-27] MEDS ORDERED: Iopamidol 612 MG/ML 100 ML Bottle IV ONE (16:53)
[2023-04-27] MEDS ORDERED: Sodium Chloride 0.9% 10 ML Syringe FLUSH ONE (16:53)
[2023-04-27 17:00] LABS: BASOPHILS ABSOLUTE AUTO 0.05 K/uL (0.00-0.10); BASOPHILS PERCENT AUTO 0.7 % (0.1-1.3); EOSINOPHILS ABSOLUTE AUTO 0.18 K/uL (0.00-0.40); EOSINOPHILS PERCENT AUTO 2.4 % (0.0-5.4); HEMATOCRIT 45.5 % (38.4-49.7); HEMOGLOBIN 15.7 g/dL (12.9-16.9); IMMATURE GRAN PERCENT AUTO 0.3 % (0.0-0.7); LYMPHOCYTES ABSOLUTE AUTO 0.98 K/uL (0.8-3.3); LYMPHOCYTES PERCENT AUTO 13.2 % (11.4-47.7); MEAN CORPUSCULAR HEMOGLOBIN 32.5 pg (31.6-35.5); MEAN CORPUSCULAR HGB CONC 34.5 g/dL (31.6-35.5); MEAN CORPUSCULAR VOLUME 94.2 fL (81.4-99.0); MONOCYTES ABSOLUTE AUTO 0.72 K/uL (0.20-0.90); MONOCYTES PERCENT AUTO 9.7 % (3.3-12.6); NEUTROPHILS ABSOLUTE AUTO 5.45 K/uL (1.0-7.6); NEUTROPHILS PERCENT AUTO 73.7 % (40.0-78.1); PLATELET COUNT,PLT 253 K/uL (130-375); RED BLOOD CELL COUNT 4.83 M/uL (4.14-5.76); WHITE BLOOD CELL COUNT,WBC 7.4 K/uL (3.2-11.0)
[2023-04-27 17:07] LABS: IMMATURE GRAN ABSOLUTE AUTO 0.02 K/uL (0.00-0.23)
[2023-04-27 17:21] LABS: A/G RATIO 1.2 (1.2-2.2); ALANINE AMINOTRANSFERASE,ALT 20 U/L (12-78); ALBUMIN 4.4 g/dL (3.4-5.0); ALKALINE PHOSPHATASE 56 U/L (46-116); ANION GAP 20.3 mmol/L (5.0-14.0); ASPARTATE AMNIOTRANSFERASE,AST 26 U/L (15-37); BILIRUBIN TOTAL 0.6 mg/dL (0.2-1.0); BLOOD UREA NITROGEN,BUN 18 mg/dL (7-18); CALCIUM 9.3 mg/dL (8.5-10.1); CARBON DIOXIDE,CO2 22 mmol/L (21-32); CHLORIDE,CL 100 mmol/L (100-108); CREATININE 1.2 mg/dL (0.8-1.3); ESTIMATED GFR 60 mL/min (>60); GLUCOSE RANDOM 113 mg/dL (74-106); POTASSIUM,K 4.3 mmol/L (3.6-5.2); SODIUM,NA 138 mmol/L (140-148)
[2023-04-27] MEDS ORDERED: HYDROmorphone 0.5 MG/0.5 ML Syringe IVPUSH ONE (17:33)
[2023-04-27] MEDS ORDERED: HYDROmorphone 1 MG/ML Syringe IVPUSH ONE (18:19)
[2023-04-27] MEDS ORDERED: HYDROmorphone 0.5 MG/0.5 ML Syringe IM ONE (19:52)
[2023-04-27 20:48] LABS: CORONAVIRUS COVID-19 NAA NEGATIVE (NEGATIVE); INFLUENZA A NAA NEGATIVE (NEGATIVE); INFLUENZA B NAA NEGATIVE (NEGATIVE); RESPIRATORY SYNCYTIAL VIR NAA NEGATIVE (NEGATIVE)
[2023-04-27] MEDS ORDERED: HYDROmorphone 1 MG/ML Syringe IVPUSH PRN (20:50)
[2023-04-27] MEDS ORDERED: Ondansetron 4 MG Tab.DIS PO PRN (20:50)
[2023-04-27] MEDS ORDERED: Enoxaparin 40 MG/0.4 ML Syringe SUBCUT SCH (20:50)
[2023-04-27] MEDS ORDERED: Sennosides/Docusate Sodium 50-8.6 MG Tab PO PRN (20:50)
[2023-04-27] MEDS ORDERED: Magnesium Hydroxide 400 MG/5 ML Susp 30 ML Cup PO PRN (20:50)
[2023-04-27] MEDS ORDERED: Acetaminophen 325 MG Tab PO PRN (20:50)
[2023-04-27] MEDS ORDERED: Lidocaine 4% Top Soln 50 ML Bottle MUCMEM ONE (20:50)
[2023-04-27] MEDS ORDERED: Melatonin 3 MG Tab PO PRN (20:50)
[2023-04-27] MEDS ORDERED: Naloxone 0.4 MG/ML SDV IVPUSH PRN (20:50)
[2023-04-27] MEDS ORDERED: Ondansetron 4 MG/2 ML SDV IV PRN (20:50)
[2023-04-27] MEDS ORDERED: HYDROmorphone 0.5 MG/0.5 ML Syringe IVPUSH PRN (21:15)
[2023-04-27] MEDS: Sodium Chloride 0.9% 1,000 ML IV SCH (21:30)
[2023-04-27] MEDS: Lisinopril 10 MG Tab PO SCH (21:39)
[2023-04-27] MEDS: Pantoprazole 40 MG Vial IV SCH (21:40)
[2023-04-28 05:43] LABS: BASOPHILS ABSOLUTE AUTO 0.04 K/uL (0.00-0.10); BASOPHILS PERCENT AUTO 0.8 % (0.1-1.3); EOSINOPHILS ABSOLUTE AUTO 0.33 K/uL (0.00-0.40); EOSINOPHILS PERCENT AUTO 6.3 % (0.0-5.4); HEMATOCRIT 38.8 % (38.4-49.7); IMMATURE GRAN PERCENT AUTO 0.2 % (0.0-0.7); LYMPHOCYTES ABSOLUTE AUTO 1.27 K/uL (0.8-3.3); LYMPHOCYTES PERCENT AUTO 24.3 % (11.4-47.7); MEAN CORPUSCULAR HEMOGLOBIN 32.3 pg (31.6-35.5); MEAN CORPUSCULAR HGB CONC 33.5 g/dL (31.6-35.5); MEAN CORPUSCULAR VOLUME 96.5 fL (81.4-99.0); MONOCYTES ABSOLUTE AUTO 0.75 K/uL (0.20-0.90); MONOCYTES PERCENT AUTO 14.4 % (3.3-12.6); NEUTROPHILS ABSOLUTE AUTO 2.82 K/uL (1.0-7.6); PLATELET COUNT,PLT 221 K/uL (130-375); RED BLOOD CELL COUNT 4.02 M/uL (4.14-5.76); WHITE BLOOD CELL COUNT,WBC 5.2 K/uL (3.2-11.0)
[2023-04-28 05:46] LABS: IMMATURE GRAN ABSOLUTE AUTO 0.01 K/uL (0.00-0.23)
[2023-04-28] MEDS: Sodium Chloride 0.9% 1,000 ML IV SCH (05:46)
[2023-04-28 05:59] LABS: ANION GAP 8.9 mmol/L (5.0-14.0); CALCIUM 8.2 mg/dL (8.5-10.1); CREATININE 1.1 mg/dL (0.8-1.3); EST CRCL DRUG DOSING (CG) 53.46 mL/min; POTASSIUM,K 4.2 mmol/L (3.6-5.2)
[2023-04-28] MEDS: Lisinopril 10 MG Tab PO SCH (09:39)
[2023-04-28] MEDS: Pantoprazole 40 MG Vial IV SCH (20:24)
[2023-04-28] MEDS ORDERED: Enoxaparin 40 MG/0.4 ML Syringe SUBCUT SCH (21:00)
[2023-04-29] MEDS: Lisinopril 10 MG Tab PO SCH (08:50)
[2023-04-29 11:42] VITALS: BP 149/82; PULSE 77
[2023-04-29] MEDS ORDERED: Pantoprazole 40 MG Tab.CR PO SCH (21:00)
== END 2023-04-29 13:12 | disposition home or self-care (01) | DRG 390 ==
LOC: JP.ED 16:17 → JP.MS 19:43
PROVIDERS: ADMIT Registered Nurse; ATTEND Hospitalist
DX: K56.600 Partial intestinal obstruction, unspecified as to cause (principal); H91.90 Unspecified hearing loss, unspecified ear; I10 Essential (primary) hypertension; Z11.52 Encounter for screening for COVID-19; Z85.038 Personal history of other malignant neoplasm of large intestine; Z97.3 Presence of spectacles and contact lenses; Z88.1 Allergy status to other antibiotic agents; Z90.49 Acquired absence of other specified parts of digestive tract; Z98.890 Other specified postprocedural states; Z79.899 Other long term (current) drug therapy
CPT/HCPCS: 0241U; 36415; 74177; 80048; 80053; 83605; 83690; 85025; 96374; 96375; 96376; 99285; 99222; 99232; 99238; A9270-GY; C9113; J1170; J1650; J3010; J3490; J7030; Q9967

== ENCOUNTER 2024-03-19 17:37 | Inpatient (IN) | payer MEDICARE ==
[2024-03-19 19:49] LABS: BASOPHILS ABSOLUTE AUTO 0.04 K/uL (0.00-0.10); BASOPHILS PERCENT AUTO 0.5 % (0.1-1.3); EOSINOPHILS ABSOLUTE AUTO 0.21 K/uL (0.00-0.40); EOSINOPHILS PERCENT AUTO 2.6 % (0.0-5.4); HEMATOCRIT 42.1 % (38.4-49.7); HEMOGLOBIN 14.4 g/dL (12.9-16.9); IMMATURE GRAN PERCENT AUTO 0.2 % (0.0-0.7); MEAN CORPUSCULAR HGB CONC 34.2 g/dL (31.6-35.5); MEAN CORPUSCULAR VOLUME 96.3 fL (81.4-99.0); MONOCYTES ABSOLUTE AUTO 0.98 K/uL (0.20-0.90); NEUTROPHILS ABSOLUTE AUTO 6.03 K/uL (1.0-7.6); NEUTROPHILS PERCENT AUTO 73.7 % (40.0-78.1); PLATELET COUNT,PLT 227 K/uL (130-375); RED BLOOD CELL COUNT 4.37 M/uL (4.14-5.76); WHITE BLOOD CELL COUNT,WBC 8.2 K/uL (3.2-11.0)
[2024-03-19 19:51] LABS: IMMATURE GRAN ABSOLUTE AUTO 0.02 K/uL (0.00-0.23)
[2024-03-19] MEDS: HYDROmorphone 0.5 MG/0.5 ML Syringe IVPUSH ONE ×2 (19:52→22:03)
[2024-03-19] MEDS: Lactated Ringers 1,000 ML IV ONE ×2 (19:56→22:02)
[2024-03-19] MEDS: Sodium Chloride 0.9% 10 ML Syringe FLUSH ONE (19:57)
[2024-03-19] MEDS: Sodium Chloride 0.9% 100 ML IV ONE (20:06)
[2024-03-19] MEDS: Iopamidol 612 MG/ML 100 ML Bottle IV ONE (20:06)
[2024-03-19 20:07] LABS: A/G RATIO 1.1 (1.2-2.2); ALANINE AMINOTRANSFERASE,ALT 21 U/L (12-78); ALBUMIN 4.1 g/dL (3.4-5.0); ALKALINE PHOSPHATASE 64 U/L (46-116); ASPARTATE AMNIOTRANSFERASE,AST 21 U/L (15-37); BILIRUBIN TOTAL 0.8 mg/dL (0.2-1.0); BLOOD UREA NITROGEN,BUN 21 mg/dL (7-18); C-REACTIVE PROTEIN 0.62 mg/dL (<0.50); CALCIUM 9.7 mg/dL (8.5-10.1); CARBON DIOXIDE,CO2 28 mmol/L (21-32); CHLORIDE,CL 102 mmol/L (100-108); CREATININE 1.2 mg/dL (0.8-1.3); EST CRCL DRUG DOSING (CG) 48.16 mL/min; ESTIMATED GFR 60 mL/min (>60); GLUCOSE RANDOM 120 mg/dL (74-106); POTASSIUM,K 4.1 mmol/L (3.6-5.2); PROTEIN TOTAL,TP 7.8 g/dL (6.4-8.2); SODIUM,NA 140 mmol/L (140-148)
[2024-03-19 20:10] LABS: LACTIC ACID 1.2 mmol/L (0.4-2.0)
[2024-03-19] MEDS ORDERED: Naloxone 0.4 MG/ML SDV IVPUSH PRN (21:57)
[2024-03-19] MEDS: Lisinopril 10 MG Tab PO SCH (22:40)
[2024-03-19] MEDS ORDERED: Acetaminophen 325 MG Tab PO PRN (22:54)
[2024-03-19] MEDS ORDERED: HYDROmorphone 1 MG/ML Syringe IVPUSH PRN (22:54)
[2024-03-19] MEDS ORDERED: Ondansetron 4 MG Tab.DIS PO PRN (22:54)
[2024-03-19] MEDS ORDERED: Melatonin 3 MG Tab PO PRN (22:54)
[2024-03-19] MEDS ORDERED: Ondansetron 4 MG/2 ML SDV IV PRN (22:54)
[2024-03-19] MEDS: Lidocaine 4% Top Soln 50 ML Bottle MUCMEM ONE (23:52)
[2024-03-20] MEDS: HYDROmorphone 0.5 MG/0.5 ML Syringe IVPUSH PRN (00:45)
[2024-03-20 04:58] LABS: HEMATOCRIT 39.3 % (38.4-49.7); HEMOGLOBIN 13.5 g/dL (12.9-16.9); MEAN CORPUSCULAR HEMOGLOBIN 32.7 pg (31.6-35.5); MEAN CORPUSCULAR HGB CONC 34.4 g/dL (31.6-35.5); MEAN CORPUSCULAR VOLUME 95.2 fL (81.4-99.0); RED BLOOD CELL COUNT 4.13 M/uL (4.14-5.76); WHITE BLOOD CELL COUNT,WBC 6.6 K/uL (3.2-11.0)
[2024-03-20 05:07] LABS: CALCIUM 9.3 mg/dL (8.5-10.1); EST CRCL DRUG DOSING (CG) 57.79 mL/min
[2024-03-20] MEDS: Lactated Ringers 1,000 ML IV SCH (05:07)
[2024-03-20] MEDS: Benzocaine/Cetylpyridinium/Menthol Lozenge MUCMEM PRN (05:15)
[2024-03-20] MEDS: Enoxaparin 40 MG/0.4 ML Syringe SUBCUT SCH (09:14)
[2024-03-20] MEDS ORDERED: Diatrizoate Meglumine/Diatrizoate Sodium 37% 120 ML Bottle PO SCH (10:15)
[2024-03-20] MEDS: Acetaminophen Soln 650 MG/20.3 ML UD Cup PO PRN (11:12)
[2024-03-20 17:28] VITALS: BP 120/69; PULSE 88
== END 2024-03-20 18:37 | disposition home or self-care (01) | DRG 390 ==
LOC: JP.ED 17:37 → JP.MS 22:22
PROVIDERS: ADMIT Registered Nurse; ATTEND Hospitalist
DX: K56.609 Unspecified intestinal obstruction, unspecified as to partial versus complete obstruction (principal); K56.51 Intestinal adhesions [bands], with partial obstruction; H54.7 Unspecified visual loss; H91.90 Unspecified hearing loss, unspecified ear; I10 Essential (primary) hypertension; Z88.1 Allergy status to other antibiotic agents; Z85.038 Personal history of other malignant neoplasm of large intestine; Z98.890 Other specified postprocedural states; Z87.891 Personal history of nicotine dependence; Z79.899 Other long term (current) drug therapy
CPT/HCPCS: 36415; 74177; 80053; 83605; 83690; 85025; 86140; 96361; 96374; 96376; 99285; J1171 ×2; J3490 ×3; J7120 ×2; Q9967; 71045; 71045-26; 74018; 80048; 83735; 84100; 85027; 99222; 99239; A9270-GY; J1650; Q9963